=== PATIENT | male | born 1955 | race Caucasian/White ===

== ENCOUNTER 2016-08-17 09:12 | Outpatient (CLI) | payer OTHER | END 2016-08-17 09:13 | disposition home or self-care (01) | DX: I63.511 Cerebral infarction due to unspecified occlusion or stenosis of right middle cerebral artery (principal); I50.22 Chronic systolic (congestive) heart failure; G93.89 Other specified disorders of brain ==

== ENCOUNTER 2017-02-02 14:52 | Outpatient (CLI) | payer OTHER ==
--- NOTE | 2017-02-02 21:18 | Ultrasound Report ---
EXAM: RENAL ULTRASOUND EXAM DATE: 02/02/2017 03:35 PM. CLINICAL HISTORY: STAGE 3 KIDNEY DISEASE, OBSTRUCTIVE NEPHROPATHY. COMPARISON: CT abdomen and pelvis 04/13/2016. TECHNIQUE: Real-time scanning was performed with static images obtained. FINDINGS: Right Kidney: 9.4 x 5.2 x 5.3 cm. Midpole renal cyst measures 1.4 cm, and no definite complex charac teristics seen. Midpole right renal calculus measuring 10 x 5 x 10 mm. No hydronephrosis. Left Kidney: 12 x 5 x 4.7 cm. No hydronephrosis. There appears to be mild bilateral renal cortical thinning. Left kidney measures larger than the righ t. There is lobular contour to both kidneys. Renal parenchymal echotexture appears mildly increased, can be seen with medical renal disease. There appears to be fatty liver. Bladder: Right bladder jet is seen. The left bladder jet is not seen. The prevoid bladder volume was 14 cc. The postvoid bladder volume was 2.8 cc. IMPRESSION: 1. There appears to be mild bilateral renal cortical thinning. Left kidney measures larger than the r ight. There is lobular contour to both kidneys. Renal parenchymal echotexture appears mildly increase d, can be seen with medical renal disease. 2. Right mid renal cyst measuring 1.4 cm. 3. Right mid renal calculus measuring 1 cm. 4. No hydronephrosis. [facility] Referring Provider Line: [phone] SITE ID: [id number]
== END 2017-02-02 14:53 | disposition home or self-care (01) ==
LOC: DI 14:52
PROVIDERS: ATTEND Internal Medicine Nephrology
DX: N28.1 Cyst of kidney, acquired (principal); N20.0 Calculus of kidney
CPT/HCPCS: 76770

== ENCOUNTER 2017-12-23 11:39 | Outpatient (CLI) | payer OTHER ==
[2017-12-23 12:05] LABS: CALCIUM 9.3 mg/dL (8.5-10.3); CREATININE 1.1 mg/dL (0.6-1.2)
[2017-12-23 12:22] LABS: HB2 TOTAL 16.7 g/dL; HEMOGLOBIN A1C 1.15 g/dL; HEMOGLOBIN A1C % 8.5 % (4.6-6.2)
[2017-12-24 15:22] LABS: HEPATITIS C ANTIBODY NON-REACTIVE (NON-REACTIVE)
== END 2017-12-23 11:40 | disposition home or self-care (01) ==
LOC: LAB 11:39
PROVIDERS: ATTEND Internal Medicine
DX: E11.9 Type 2 diabetes mellitus without complications (principal); Z79.899 Other long term (current) drug therapy
CPT/HCPCS: 36415; 80048; 83036; 86803

== ENCOUNTER 2018-02-26 02:38 | Outpatient (CLI) | payer OTHER | END 2018-02-26 02:39 | disposition critical access hospital (66) | LOC: EMS 02:38 | PROVIDERS: ATTEND Surgery | DX: R07.81 Pleurodynia (principal); R03.0 Elevated blood-pressure reading, without diagnosis of hypertension; W19.XXXA Unspecified fall, initial encounter; Y92.009 Unspecified place in unspecified non-institutional (private) residence as the place of occurrence of the external cause; Z79.01 Long term (current) use of anticoagulants | CPT/HCPCS: A0425; A0427 ==

== ENCOUNTER 2018-02-26 02:57 | Inpatient (IN) | payer OTHER ==
[2018-02-26] MEDS ORDERED: IOPAMIDOL-300 100 ML VIAL ONE (03:17)
[2018-02-26 03:19] LABS: BASOPHILS # (AUTO) 0.2 10^3/uL (0.0-0.1); BASOPHILS % (AUTO) 2.9 %; EOSINOPHILS # (AUTO) 0.2 10^3/uL (0.0-0.7); HGB - HEMOGLOBIN 13.9 g/dL (14.0-18.0); LYMPHOCYTES # (AUTO) 2.8 10^3/uL (1.5-3.5); LYMPHOCYTES % (AUTO) 39.5 %; MEAN CORPUSCULAR VOLUME 97.2 fL (80.0-94.0); MEAN PLATELET VOLUME 8.9 fL (7.4-11.4); MONOCYTES # (AUTO) 0.8 10^3/uL (0.0-1.0); MONOCYTES % (AUTO) 11.1 %; NEUTROPHILS % (AUTO) 43.5 %; PLT - PLATELET COUNT 221 10^3/uL (130-450); RED BLOOD COUNT 4.22 10^6/uL (4.70-6.10); RED CELL DISTRIBUTION WIDTH 14.2 % (12.0-15.0)
[2018-02-26] MEDS ORDERED: fentaNYL 100 MCG/2 ML VIAL IVP STA (03:24)
[2018-02-26 03:25] LABS: PT - PROTHROMBIN TIME 22.5 secs (9.9-12.6)
[2018-02-26] MEDS ORDERED: SODIUM CHLORIDE 0.9% 1,000 ML IV ONE (03:27)
[2018-02-26 03:28] LABS: MUDS CUTOFF CONCENTRATIONS CUTOFF CONC BELOW:
[2018-02-26 03:29] LABS: ALBUMIN 3.7 g/dL (3.2-5.5); ALBUMIN/GLOBULIN RATIO 1.2 (1.0-2.2); ALKALINE PHOSPHATASE 45 IU/L (42-121); ALT ALANINE AMINOTRANSFERASE 22 IU/L (10-60); AST ASPARTATE AMINOTRANSFERASE 21 IU/L (10-42); BILIRUBIN,TOTAL 0.7 mg/dL (0.2-1.0); BUN - BLOOD UREA NITROGEN 28 mg/dL (6-20); CALCIUM 8.7 mg/dL (8.5-10.3); CARBON DIOXIDE - CO2 24 mmol/L (21-32); CHLORIDE 101 mmol/L (101-111); CK- CREATINE KINASE 53 IU/L (22-269); CREATININE 2.4 mg/dL (0.6-1.2); GFR - MDRD 28 (>89); GLUCOSE 84 mg/dL (70-100); LIPASE 91 U/L (22-51); SALICYLATE < 6.0 mg/dL; SODIUM 135 mmol/L (135-145); TOTAL PROTEIN 6.8 g/dL (6.7-8.2)
--- NOTE | 2018-02-26 03:36 | ED Physician Documentation ---
History of Present Illness - Stated complaint Stated Complaint: GLF - Chief complaint Chief Complaint: Trauma Ch/Bk - History obtained from History obtained from: Patient, Family, EMS - Additonal information Additional information: 63-year-old male was brought to the emergency department after a fall for evaluation of striking his head and chest and abdomen. The patient became lightheaded while walking and dizzy and subsequently fell striking his head, chest and abdomen. The patient was found by EMS to have a low blood pressure. The patient denies extremity trauma. The patient denies chest pain or shortness of breath. Symptoms are described as severe. The patient is on Coumadin. No other associated symptoms. No relieving factors.The patient's significant other reports that he has been weaker in the past several days and not drinking any water or having much oral intake. Review of Systems Constitutional: reports: Myalgias, Fatigue Eyes: denies: Discharge Ears: denies: Ear pain Nose: denies: Congestion Throat: denies: Sore throat Cardiac: reports: Chest pain / pressure GI: reports: Abdominal Pain Skin: denies: Rash, Laceration (s) Musculoskeletal: reports: Neck pain. denies: Extremity pain, Joint pain, Extremity swelling Neurologic: reports: Generalized weakness, Near syncope, Confused. denies: Focal weakness, Syncope Immunocompromised: denies: Chemotherapy PD PAST MEDICAL HISTORY - Past Medical History Past Medical History: Yes Cardiovascular: Hypertension, High cholesterol Neuro: CVA Endocrine/Autoimmune: Type 2 diabetes GI: GERD Musculoskeletal: Other - Past Surgical History Past Surgical History: Yes Cardiovascular: AICD Neuro: Other - Present Medications Home Medications: Ambulatory Orders Medication Instructions Recorded Confirmed Baclofen 10 mg PO TID 11/06/14 11/06/14 Carvedilol 25 mg PO DAILY 11/06/14 11/06/14 Insulin Aspart [Novolog] SQ TID 11/06/14 11/06/14 Insulin Glargine [Lantus] 55 units SQ BID 11/06/14 11/06/14 Losartan [Cozaar] 12.5 mg PO DAILY 11/06/14 11/06/14 Aspirin [Children's Aspirin] 1 tab PO DAILY 02/26/18 02/26/18 Gabapentin 1 cap PO TID 02/26/18 02/26/18 Metoclopramide HCl 1 tab PO QID 02/26/18 02/26/18 Morphine Sulfate [Morphine Sulfate 1 tab PO BID 02/26/18 02/26/18 ER] Spironolactone 1 tab PO DAILY 02/26/18 02/26/18 Torsemide 1 tab PO DAILY 02/26/18 02/26/18 Warfarin Sodium 0.25 mg PO 02/26/18 Warfarin Sodium 0.5 mg PO 02/26/18 - Allergies Allergies/Adverse Reactions: Allergies Allergy/AdvReac Type Severity Reaction Status Date / Time codeine Allergy Unknown Verified 02/26/18 03:29 lisinopril Allergy Unknown Verified 02/26/18 03:29 niacin Allergy Rash Verified 02/26/18 03:29 Penicillins Allergy Respiratory Verified 02/26/18 03:29 - Social History Does the pt smoke?: Yes Smoking Status: Current every day smoker Does the pt drink ETOH?: No Does the pt have substance abuse?: No - Immunizations Immunizations are current?: Yes - POLST Patient has POLST: No PD ED PE NORMAL - General General: Other (The patient is alert and following commands. The patient appears chronically ill and uncomfortable) - HEENT HEENT: Atraumatic, PERRL, EOMI, Ears normal - Neck Neck: No: No bony TTP - Cardiac Cardiac: RRR, Other (The patient has tenderness along his left lower chest wall into his left upper abdomen, there is no laceration, no crepitus or subcutaneous emphysema) - Respiratory Respiratory: No respiratory distress - Abdomen Abdomen: Soft. No: Non tender (Left upper abdomen pain) - Derm Derm: Normal color - Extremities Extremities: No deformity, No tenderness to palpate, Other (The patient has no tenderness of the major joints and appears to have no obvious deformities and no tenderness on a skeletal survey) - Neuro Neuro: Alert and oriented X 3, Normal speech Eye Opening: Spontaneous Motor: Obeys Commands Verbal: Oriented GCS Score: 15 - Psych Psych: Normal affect Results - Vitals Vitals: Vital Signs - 24 hr 02/26/18 02/26/18 02/26/18 02:57 03:10 03:23 Temperature 36.3 C L Heart Rate 62 63 66 Respiratory 14 15 Rate Blood Pressure 84/80 L 75/53 L 87/49 L O2 Saturation 99 99 99 02/26/18 02/26/18 02/26/18 03:40 03:55 04:05 Temperature Heart Rate 72 66 60 Respiratory 14 16 14 Rate Blood Pressure 91/57 L 98/64 94/59 L O2 Saturation 97 98 97 02/26/18 02/26/18 02/26/18 04:28 05:05 05:47 Temperature 36.5 C Heart Rate 60 60 64 Respiratory 15 20 14 Rate Blood Pressure 104/62 110/65 109/65 O2 Saturation 100 99 96 Oxygen O2 Source Room air - Labs Labs: Laboratory Tests 02/26/18 02/26/18 02/26/18 03:00 03:00 03:00 WBC 7.0 RBC 4.22 L Hgb 13.9 L Hct 41.1 L MCV 97.2 H MCH 33.0 H MCHC 34.0 RDW 14.2 Plt Count 221 MPV 8.9 Neut # (Auto) 3.0 Lymph # (Auto) 2.8 [place] # (Auto) 0.8 Eos # (Auto) 0.2 Baso # (Auto) 0.2 H Absolute Nucleated RBC 0.01 Nucleated RBC % 0.1 PT 22.5 H INR 2.0 H APTT 28.9 Sodium 135 Potassium 3.1 L Chloride 101 Carbon Dioxide 24 Anion Gap 10.0 BUN 28 H Creatinine 2.4 H Estimated GFR (MDRD) 28 L Glucose 84 Calcium 8.7 Total Bilirubin 0.7 AST 21 ALT 22 Alkaline Phosphatase 45 Ammonia Total Creatine Kinase 53 Troponin I Total Protein 6.8 Albumin 3.7 Globulin 3.1 Albumin/Globulin Ratio 1.2 Lipase 91 H Urine Color Urine Clarity Urine pH Ur Specific [place] Urine Protein Urine Glucose (UA) Urine Ketones Urine Occult Blood Urine Nitrite Urine Bilirubin Urine Urobilinogen Ur Leukocyte Esterase Urine RBC Urine WBC Ur Squamous Epith Cells Urine Bacteria Ur Microscopic Review Urine Culture Comments Salicylates < 6.0 Urine Opiates Screen Ur Oxycodone Screen Urine Methadone Screen Ur Propoxyphene Screen Acetaminophen < 10 L Ur Barbiturates Screen Ur Tricyclics Screen Ur Phencyclidine Scrn Ur Amphetamine Screen U Methamphetamines Scrn U Benzodiazepines Scrn Urine Cocaine Screen U Cannabinoids Screen Ethyl Alcohol < 5.0 02/26/18 02/26/18 02/26/18 03:00 03:20 03:20 WBC RBC Hgb Hct MCV MCH MCHC RDW Plt Count MPV Neut # (Auto) Lymph # (Auto) [place] # (Auto) Eos # (Auto) Baso # (Auto) Absolute Nucleated RBC Nucleated RBC % PT INR APTT Sodium Potassium Chloride Carbon Dioxide Anion Gap BUN Creatinine Estimated GFR (MDRD) Glucose Calcium Total Bilirubin AST ALT Alkaline Phosphatase Ammonia 25.0 Total Creatine Kinase Troponin I 0.05 Total Protein Albumin Globulin Albumin/Globulin Ratio Lipase Urine Color Urine Clarity Urine pH Ur Specific [place] Urine Protein Urine Glucose (UA) Urine Ketones Urine Occult Blood Urine Nitrite Urine Bilirubin Urine Urobilinogen Ur Leukocyte Esterase Urine RBC Urine WBC Ur Squamous Epith Cells Urine Bacteria Ur Microscopic Review Urine Culture Comments Salicylates Urine Opiates Screen POSITIVE H Ur Oxycodone Screen NEGATIVE Urine Methadone Screen NEGATIVE Ur Propoxyphene Screen NEGATIVE Acetaminophen Ur Barbiturates Screen NEGATIVE Ur Tricyclics Screen NEGATIVE Ur Phencyclidine Scrn NEGATIVE Ur Amphetamine Screen NEGATIVE U Methamphetamines Scrn NEGATIVE U Benzodiazepines Scrn NEGATIVE Urine Cocaine Screen NEGATIVE U Cannabinoids Screen NEGATIVE Ethyl Alcohol 02/26/18 03:20 WBC RBC Hgb Hct MCV MCH MCHC RDW Plt Count MPV Neut # (Auto) Lymph # (Auto) [place] # (Auto) Eos # (Auto) Baso # (Auto) Absolute Nucleated RBC Nucleated RBC % PT INR APTT Sodium Potassium Chloride Carbon Dioxide Anion Gap BUN Creatinine Estimated GFR (MDRD) Glucose Calcium Total Bilirubin AST ALT Alkaline Phosphatase Ammonia Total Creatine Kinase Troponin I Total Protein Albumin Globulin Albumin/Globulin Ratio Lipase Urine Color DARK YELLOW Urine Clarity HAZY Urine pH 5.0 Ur Specific [place] >=1.030 H Urine Protein 30 H Urine Glucose (UA) 100 H Urine Ketones TRACE Urine Occult Blood LARGE H Urine Nitrite NEGATIVE Urine Bilirubin NEGATIVE Urine Urobilinogen 0.2 (NORMAL) Ur Leukocyte Esterase NEGATIVE Urine RBC TNTC H Urine WBC 0-3 Ur Squamous Epith Cells RARE Squamous Urine Bacteria Rare Ur Microscopic Review INDICATED Urine Culture Comments NOT INDICATED Salicylates Urine Opiates Screen Ur Oxycodone Screen Urine Methadone Screen Ur Propoxyphene Screen Acetaminophen Ur Barbiturates Screen Ur Tricyclics Screen Ur Phencyclidine Scrn Ur Amphetamine Screen U Methamphetamines Scrn U Benzodiazepines Scrn Urine Cocaine Screen U Cannabinoids Screen Ethyl Alcohol PD MEDICAL DECISION MAKING - ED course ED course: The patient has not sustained any significant injury that would necessitate transfer to a trauma center. The findings were discussed with the on-call surgeon who agrees. The patient will require admission to the hospital for pain control and management of his acute medical findings. The case was discussed with the hospitalist Dr. Nova who accepts the patient onto her service. The findings and plan were discussed with the patient and family who understand and agree - Sepsis Event Vital Signs: Vital Signs - 24 hr 02/26/18 02/26/18 02/26/18 02:57 03:10 03:23 Temperature 36.3 C L Heart Rate 62 63 66 Respiratory 14 15 Rate Blood Pressure 84/80 L 75/53 L 87/49 L O2 Saturation 99 99 99 02/26/18 02/26/18 02/26/18 03:40 03:55 04:05 Temperature Heart Rate 72 66 60 Respiratory 14 16 14 Rate Blood Pressure 91/57 L 98/64 94/59 L O2 Saturation 97 98 97 02/26/18 02/26/18 02/26/18 04:28 05:05 05:47 Temperature 36.5 C Heart Rate 60 60 64 Respiratory 15 20 14 Rate Blood Pressure 104/62 110/65 109/65 O2 Saturation 100 99 96 Oxygen O2 Source Room air Departure - Departure Disposition: ED Place in Observation Clinical Impression: Dizziness, Acute renal injury, Dehydration Closed head injury Qualifiers: Encounter type: initial encounter Qualified Code(s): S09.90XA - Unspecified injury of head, initial encounter Chest wall contusion Qualifiers: Encounter type: initial encounter Laterality: unspecified laterality Qualified Code(s): S20.219A - Contusion of unspecified front wall of thorax, initial encounter Abdominal wall contusion Qualifiers: Encounter type: initial encounter Qualified Code(s): S30.1XXA - Contusion of abdominal wall, initial encounter Hematuria Qualifiers: Hematuria type: unspecified type Qualified Code(s): R31.9 - Hematuria, unspecified Hypotension Qualifiers: Hypotension type: unspecified hypotension type Qualified Code(s): I95.9 - Hypotension, unspecified
[2018-02-26 03:37] LABS: ACETAMINOPHEN < 10 ug/mL (10-30)
[2018-02-26 03:42] LABS: AMPHETAMINE SCREEN,URINE NEGATIVE (NEGATIVE); BENZODIAZEPINES SCREEN, URINE NEGATIVE (NEGATIVE); COCAINE SCREEN URINE NEGATIVE (NEGATIVE); METHADONE SCREEN, URINE NEGATIVE (NEGATIVE); METHAMPHETAMINES SCREEN, URINE NEGATIVE (NEGATIVE); OPIATE SCREEN, URINE POSITIVE (NEGATIVE); OXYCODONE SCREEN, URINE NEGATIVE (NEGATIVE); PROPOXYPHENE SCREEN, URINE NEGATIVE (NEGATIVE); TRICYCLIC ANTIDEPRESSANT,URINE NEGATIVE (NEGATIVE)
[2018-02-26] MEDS ORDERED: LACTATED RINGERS 1,000 ML IV ONE (03:43)
--- NOTE | 2018-02-26 04:29 | CT Report ---
Procedure Date: 02/26/2018 Accession Number: [id number] / [id number] Procedure: CT - Chest W/O CPT Code: FULL RESULT: EXAM: CT CHEST EXAM DATE: 02/26/2018 04:07 AM. CLINICAL HISTORY: Fall, left chest wall pain. COMPARISONS: None. TECHNIQUE: Routine helical CT imaging was performed through the chest. IV contrast: None. Reconstructions: Coronal and sagittal. In accordance with CT protocol optimization, one or more of the following dose reduction techniques were utilized for this exam: automated exposure control, adjustment of mA and/or KV based on patient size, or use of iterative reconstructive technique. FINDINGS: Lungs/Pleura: No nodules, bronchial thickening, consolidation, or edema. Pulmonary vasculature is normal. No pericardial or pleural effusion. No pneumothorax. Mediastinum: Pacemaker. No adenopathy or masses. The heart and great vessels are normal. Bones: Degenerative changes. Visualized Abdomen: Please see separate CT. Other: None. IMPRESSION: No evidence of fracture. No pneumothorax or pulmonary contusion. [facility]
--- NOTE | 2018-02-26 04:32 | CT Report ---
Procedure Date: 02/26/2018 Accession Number: [id number] / [id number] Procedure: CT - Abdomen/Pelvis W/O CPT Code: FULL RESULT: EXAM: CT ABDOMEN AND PELVIS EXAM DATE: 02/26/2018 04:12 AM. CLINICAL HISTORY: Chest/abdominal wall trauma. COMPARISONS: 04/13/2016. TECHNIQUE: Routine helical CT imaging was performed through the abdomen and pelvis. IV contrast: None. Enteric contrast: No. Reconstructions: Coronal and sagittal. In accordance with CT protocol optimization, one or more of the following dose reduction techniques were utilized for this exam: automated exposure control, adjustment of mA and/or KV based on patient size, or use of iterative reconstructive technique. FINDINGS: Lung Bases: Unremarkable. Liver: Normal. No masses. Gallbladder/Bile Ducts: Unremarkable. Spleen: Normal. Pancreas: Normal. Adrenal Glands: Normal. Kidneys: Nonobstructing calculi, measuring up to 8 mm. No hydronephrosis or solid renal lesion. Peritoneal Cavity/Bowel: Normal. No free fluid, free air or adenopathy. No masses or acute inflammatory process. The appendix is well visualized and normal. Pelvic Organs: Normal. The bladder and visualized pelvic organs are within normal limits. Vasculature: No aneurysms or other significant abnormality. Bones: No significant abnormality. Other: Contusion in the subcutaneous fat of the anterior abdominal wall. IMPRESSION: No evidence of solid or hollow organ injury. Nonobstructing renal calculi. [facility]
[2018-02-26 04:33] LABS: GLUCOSE, URINE (UA) 100 mg/dL (NEGATIVE); KETONES,URINE (UA) TRACE mg/dL (NEGATIVE); LEUKOCYTE ESTERASE, URINE NEGATIVE (NEGATIVE); NITRITE,URINE NEGATIVE (NEGATIVE); OCCULT BLOOD,URINE LARGE (NEGATIVE); PROTEIN,URINE 30 mg/dL (NEGATIVE); UROBILINOGEN,URINE 0.2 (NORMAL) E.U./dL (NORMAL)
[2018-02-26 04:38] LABS: BILIRUBIN,URINE NEGATIVE (NEGATIVE); CLARITY,URINE HAZY (CLEAR); ICTOTEST,URINE NEGATIVE
--- NOTE | 2018-02-26 04:40 | CT Report ---
Procedure Date: 02/26/2018 Accession Number: [id number] / [id number] Procedure: CT - Head W/O CPT Code: FULL RESULT: EXAM: CT HEAD EXAM DATE: 02/26/2018 04:10 AM. CLINICAL HISTORY: Fall, head injury. COMPARISON: 08/17/2016. TECHNIQUE: Multiaxial CT images were obtained from the foramen magnum to the vertex. Reformats: Sagittal and coronal. IV contrast: None. In accordance with CT protocol optimization, one or more of the following dose reduction techniques were utilized for this exam: automated exposure control, adjustment of mA and/or KV based on patient size, or use of iterative reconstructive technique. FINDINGS: Parenchyma: Old right MCA territory infarcts bilaterally. Right is larger than the left. The appearance is unchanged. No evidence of hemorrhage or interval infarct. Small region of encephalomalacia is seen involving the posterior left cerebellum at site of retrosigmoid craniectomy. This is also unchanged. Extraaxial Spaces: Normal for age. No subdural or epidural collections identified. Ventricles: Normal in size and position. Sinuses and Orbits: Imaged paranasal sinuses, orbits, and mastoids show no significant abnormality. Bones: No fracture. Left retrosigmoid craniectomy. Other: None. IMPRESSION: 1. Old bilateral MCA territory infarcts, unchanged. 2. Postoperative findings within the posterior fossa on the left as before. 3. No acute intracranial process identified. [facility]
[2018-02-26 04:41] LABS: BACTERIA,URINE Rare /HPF (None Seen); RBC,URINE TNTC /HPF (0-5); SQUAMOUS EPITHELIAL CELL,UR RARE Squamous (<= Few)
--- NOTE | 2018-02-26 04:49 | CT Report ---
Procedure Date: 02/26/2018 Accession Number: [id number] / [id number] Procedure: CT - Cervical Spine W/O CPT Code: FULL RESULT: EXAM: CT CERVICAL SPINE WITHOUT CONTRAST DATE: 02/26/2018 04:05 AM. HISTORY: Fall, injury. COMPARISONS: None. TECHNIQUE: Thin-section axial images were acquired of the cervical spine without contrast. Post-processing: Coronal and sagittal reformats. Other: None. In accordance with CT protocol optimization, one or more of the following dose reduction techniques were utilized for this exam: automated exposure control, adjustment of mA and/or KV based on patient size, or use of iterative reconstructive technique. FINDINGS: Alignment: No scoliosis or spondylolisthesis. Bones: No fracture or bone lesion. Undulating ossification of the anterior longitudinal ligament from C3-C6. This measures 9-10 mm in thickness at C4, similar. There is more extensive ossification seen anterior to C4-C5, bony bridging now present anteriorly at C5-C6. Interspace Levels/Facets: Stable appearing degenerative changes elsewhere in the cervical spine. Central canal narrowing is present to some extent at C3-C4 through C5-C6, inclusive. Findings are superimposed on an element of congenital narrowing of the central canal. AP diameter at mid C3 of roughly 10 mm, Torg index 0.57 Musculature: Normal. No fatty atrophy. Other: The paravertebral and prevertebral soft tissues are unremarkable. The lung apices are clear. IMPRESSION: 1. 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 2. No fracture identified. 3. Stable degenerative changes elsewhere in the cervical spine since 11/06/2014. 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 [facility]
[2018-02-26 06:25] LABS: HGB - HEMOGLOBIN 13.2 g/dL (14.0-18.0); MEAN CORPUSCULAR HEMOGLOBIN 33.1 pg (27.0-31.0); MEAN CORPUSCULAR HGB CONC 34.1 g/dL (32.0-36.0); MEAN CORPUSCULAR VOLUME 97.1 fL (80.0-94.0); MEAN PLATELET VOLUME 8.5 fL (7.4-11.4); RED BLOOD COUNT 3.98 10^6/uL (4.70-6.10); RED CELL DISTRIBUTION WIDTH 13.8 % (12.0-15.0); WHITE BLOOD COUNT 6.2 x10^3/uL (4.8-10.8)
--- NOTE | 2018-02-26 06:28 | HISTORY & PHYSICAL EXAMINATION ---
Chief Complaint - Chief Complaint Chief Complaint: dizziness, syncope History of Present Illness - Admitted From Admitted From:: Home - History Obtained From History obtained from: Pt, ED Physician Exam Limitations: none noted - History of Present Illness HPI Comment/Other: Mr. Louie Blandon is a very pleasant 63-year-old male with an extensive past medical history significant for 3 myocardial infarctions, several pacer/ defibrillator surgeries, and 2 strokes, the most recent coming in 2016. The patient says that he got up this evening to use the bathroom and felt dizzy and woke up on the floor. He does not recall falling to the floor, striking his head, or any of the immediate events surrounding his fall. EMS was called and found the patient to be hypotensive, and in the ED he was found to be somewhat dehydrated with an acute kidney injury and a creatinine of 2.4 (he typically runs around 1.0). He was given IV fluids and his blood pressure started to rise in the emergency department however given his history it seems prudent to admit him and rule out another stroke or seizure, while monitoring his renal function and EKG. History - Past Medical History Cardiovascular: reports: Hypertension, High cholesterol, Coronary artery disease , OR Neuro: reports: CVA Endocrine/Autoimmune: reports: Type 2 diabetes GI: reports: GERD Musculoskeletal: reports: Other MRSA Hx?: No - Past Surgical History Ortho: reports: Other (bilateral wrist fusions) Cardiovascular: reports: AICD Neuro: reports: Other - Family & Social History Family History: Mother: Alive and Well, Father: , OR Family History Comment/Other: The patient says his family does not really talk about their medical problems and that the only person he is aware of with any medical history as his father who of a heart attack. Living arrangement: At home Living Situation: With family - Substance History Use: Uses substance without health or social issues: NONE Abuse: Recurrent use of substance despite neg consequences: NONE Dependence: Experiences withdrawal or developed tolerances: NONE - POLST Patient has POLST: No POLST Status: Full Code Meds/Allgy - Home Medications Home Medications: Ambulatory Orders Medication Instructions Recorded Confirmed Baclofen 10 mg PO TID 11/06/14 02/26/18 Carvedilol 12.5 mg PO BID 11/06/14 02/26/18 Insulin Aspart [Novolog] 0 - 25 units SQ TIDWM 11/06/14 02/26/18 Insulin Glargine [Lantus] 55 units SQ BID 11/06/14 02/26/18 Losartan [Cozaar] 12.5 mg PO DAILY 11/06/14 02/26/18 Aspirin [Children's Aspirin] 81 mg PO DAILY 02/26/18 02/26/18 Gabapentin 100 mg PO TID 02/26/18 02/26/18 Metoclopramide HCl 5 mg PO QID 02/26/18 02/26/18 Morphine Sulfate [Morphine Sulfate 15 mg PO BID 02/26/18 02/26/18 ER] Spironolactone 25 mg PO DAILY 02/26/18 02/26/18 Torsemide 10 mg PO DAILY 02/26/18 02/26/18 Warfarin Sodium 2.5 mg PO [id number]/26/[id number] 02/27/18 Warfarin Sodium 5 mg PO [id number]/26/[id number] 02/27/18 raNITIdine HCl [Ranitidine HCl] 150 mg PO DAILY 02/26/18 02/26/18 - Allergies Allergies/Adverse Reactions: Allergies Allergy/AdvReac Type Severity Reaction Status Date / Time codeine Allergy Unknown Verified 02/26/18 03:29 lisinopril Allergy Unknown Verified 02/26/18 03:29 niacin Allergy Rash Verified 02/26/18 03:29 Penicillins Allergy Respiratory Verified 02/26/18 03:29 Review of Systems - Constitutional Constitutional: denies: Fatigue, Fever, Chills, Night sweats - Eyes Eyes: denies: Pain, Irritation, Amaurosis, Dipolpia - Ears, Nose & Throat Ears, Nose & Throat: denies: Ear pain, Hearing loss, Hearing aids, Tinnitus, Vertigo, Nasal pain, Nasal discharge, Nosebleeds, Hoarseness - Cardiovascular Cariovascular: reports: Lightheadedness, Syncope. denies: Irregular heart rate , Palpitations, Chest pain, Edema - Respiratory Respiratory: denies: Cough, Sputum production, Wheezing, Snoring, Hemoptysis, Orthopnea - Gastrointestinal Gastrointestinal: denies: Abdominal pain, Abdominal distention, Constipation, Diarrhea, Change in bowel habits, Rectal bleeding, Nausea, Vomiting - Genitourinary Genitourinary: denies: Dysuria, Frequency, Urgency, Hematuria - Musculoskeletal Musculoskeletal: reports: Muscle pain (chest wall pain secondary to contusion), Muscle aches. denies: Back pain, Stiffness, Muscle weakness, Gout, Joint pain - Integumentary Integumentary: denies: Rash, Pruritis, Lesions, Dryness - Neurological Neurological: reports: Dizziness. denies: General weakness, Focal weakness, Headache - Psychiatric Psychiatric: denies: Depression, Anxiety, Suicidal, Hallucinations - Endocrine Endocrine: denies: Polyuria, Polydypsia, Polyphagia - Hematologic/Lymphatic Hematologic/Lymphatic: denies: Anemia, Bruising, Petechiae, Lymphadenopathy - All Other Systems All Other Systems: reports: Reviewed and negative Exam - Vital Signs Reviewed Vital Signs: Yes Vital Signs: Vital Signs x48h Temp Pulse Resp BP Pulse Ox 02/26/18 05:47 64 14 109/65 96 02/26/18 05:05 36.5 C 60 20 110/65 99 02/26/18 04:28 60 15 104/62 100 02/26/18 04:05 60 14 94/59 L 97 02/26/18 03:55 66 16 98/64 98 02/26/18 03:40 72 14 91/57 L 97 02/26/18 03:23 66 15 87/49 L 99 02/26/18 03:10 63 14 75/53 L 99 02/26/18 02:57 36.3 C L 62 84/80 L 99 - Physical Exam General Appearance: positive: No acute distress, Alert Eyes Bilateral: positive: Normal inspection, PERRL, EOMI, No lid inflammation, Conjunctivae nml, No scleral icterus ENT: positive: ENT inspection nml, Pharynx nml, No signs of dehydration Neck: positive: Nml inspection, Thyroid nml, No JVD, Trachea midline. negative : Thyromegaly Respiratory: positive: No respiratory distress, Breath sounds nml, Other (chest wall). negative: Wheezes, Rales, Rhonchi Cardiovascular: positive: Regular rate & rhythm, No murmur, No gallop Peripheral Pulses: positive: 1+ Abdomen: positive: Non-tender, No organomegaly, Nml bowel sounds, No distention. negative: Guarding, Rebound Back: positive: Nml inspection. negative: CVA tenderness (R), CVA tenderness (L ) Skin: positive: Color nml, No rash, Warm, Dry. negative: Cyanosis Extremities: positive: Non-tender, Full ROM, Nml appearance, No pedal edema Neurologic/Psychiatric: positive: Oriented x3, CN's nml (2-12), Sensation nml, Mood/affect nml, Weakness (Patient has residual left hand weakness), Slurred/ abnml speech Conclusion/Plan - Problem List (1) Dizziness Conclusion/Plan: It is unclear if the patient has had a full syncopal event. The patient says he does not remember falling or hitting his head. The differential for this would include a syncopal event as well as a seizure, especially given the patient's history of 2 prior CVAs, as well as a TIA or another stroke. I will order a carotid ultrasound and an echocardiogram. The patient has had a defibrillator/pacemaker placed and fusions of his wrists and is not eligible for an MRI of his brain. The [facility] radiologist, Dr. Chapman, does not feel that a CTA would be of any use at this time. I suggest the patient follow-up with a neurologist following discharge. (2) Chest wall contusion Conclusion/Plan: The patient fell, landing on his chest, which is tender. A CTA of the chest failed to show any bony abnormalities or fractures. We will treat him with NSAIDs. Qualifiers: Encounter type: initial encounter Laterality: unspecified laterality Qualified Code(s): S20.219A - Contusion of unspecified front wall of thorax, initial encounter (3) Cerebrovascular accident (CVA) Conclusion/Plan: The patient has a history of a stroke in 2011 and another in 2016. We will check his carotid ultrasound and echocardiogram however a CTA has been overruled by the [facility] radiologist. Patient is not a candidate for an MRI. Qualifiers: CVA mechanism: unspecified Qualified Code(s): I63.9 - Cerebral infarction, unspecified (4) Coronary artery disease Conclusion/Plan: Patient has a history of coronary artery disease and has had 3 myocardial infarctions. We will continue him on his warfarin, Carvedilol, spironolactone and torsemide. There is some question as to whether or not the patient has congestive heart failure given his home medication regimen and we will know more after the echocardiogram. (5) Type 2 diabetes mellitus Conclusion/Plan: Patient has a history of type 2 diabetes mellitus and takes insulin at home. We will restart him on his basal glargine dosing and cover him with sliding scale. Will obtain a hemoglobin A1c to check his glycemic compliance. (6) Hypertension Conclusion/Plan: The patient has a history of hypertension and takes losartan but has been hypotensive since he came to the emergency department. We will hold the losartan for now. (7) Diabetic gastroparesis Conclusion/Plan: Patient has a history of diabetic gastroparesis and takes metoclopramide at home. We will continue this while he is inpatient. (8) Dehydration Conclusion/Plan: Patient is being rehydrated at this time. Will monitor his fluid status and electrolytes. - Lab Results Lab results reviewed: Yes Fish Bones: 02/27/18 05:10 02/27/18 05:10 - Diagnostic Imaging Results Diagnostic Imaging Results: positive: Final report reviewed, Discussed with radiologist (Due to the patient's history of 2 CVAs I had requested a CTA to rule out any large occlusions however I received a call from Dr. Chapman at [facility] who assures me that this is not necessary and would not be of any usefulness in this patient's care/treatment.) Diagnostic Imaging Results Comments: EXAM: CT HEAD EXAM DATE: 02/26/2018 04:10 AM. CLINICAL HISTORY: Fall, head injury. COMPARISON: 08/17/2016. TECHNIQUE: Multiaxial CT images were obtained from the foramen magnum to the vertex. Reformats: Sagittal and coronal. IV contrast: None. In accordance with CT protocol optimization, one or more of the following dose reduction techniques were utilized for this exam: automated exposure control, adjustment of mA and/or KV based on patient size, or use of iterative reconstructive technique. FINDINGS: Parenchyma: Old right MCA territory infarcts bilaterally. Right is larger than the left. The appearance is unchanged. No evidence of hemorrhage or interval infarct. Small region of encephalomalacia is seen involving the posterior left cerebellum at site of retrosigmoid craniectomy. This is also unchanged. Extraaxial Spaces: Normal for age. No subdural or epidural collections identified. Ventricles: Normal in size and position. Sinuses and Orbits: Imaged paranasal sinuses, orbits, and mastoids show no significant abnormality. Bones: No fracture. Left retrosigmoid craniectomy. Other: None. IMPRESSION: 1. Old bilateral MCA territory infarcts, unchanged. 2. Postoperative findings within the posterior fossa on the left as before. 3. No acute intracranial process identified. EXAM: CT CERVICAL SPINE WITHOUT CONTRAST DATE: 02/26/2018 04:05 AM. HISTORY: Fall, injury. COMPARISONS: None. TECHNIQUE: Thin-section axial images were acquired of the cervical spine without contrast. Post-processing: Coronal and sagittal reformats. Other: None. In accordance with CT protocol optimization, one or more of the following dose reduction techniques were utilized for this exam: automated exposure control, adjustment of mA and/or KV based on patient size, or use of iterative reconstructive technique. FINDINGS: Alignment: No scoliosis or spondylolisthesis. Bones: No fracture or bone lesion. Undulating ossification of the anterior longitudinal ligament from C3-C6. This measures 9-10 mm in thickness at C4, similar. There is more extensive ossification seen anterior to C4-C5, bony bridging now present anteriorly at C5-C6. Interspace Levels/Facets: Stable appearing degenerative changes elsewhere in the cervical spine. Central canal narrowing is present to some extent at C3-C4 through C5-C6, inclusive. Findings are superimposed on an element of congenital narrowing of the central canal. AP diameter at mid C3 of roughly 10 mm, Torg index 0.57 Musculature: Normal. No fatty atrophy. Other: The paravertebral and prevertebral soft tissues are unremarkable. The lung apices are clear. IMPRESSION: 1. 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 2. No fracture identified. 3. Stable degenerative changes elsewhere in the cervical spine since 11/06/2014. 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 EXAM: CT ABDOMEN AND PELVIS EXAM DATE: 02/26/2018 04:12 AM. CLINICAL HISTORY: Chest/abdominal wall trauma. COMPARISONS: 04/13/2016. TECHNIQUE: Routine helical CT imaging was performed through the abdomen and pelvis. IV contrast: None. Enteric contrast: No. Reconstructions: Coronal and sagittal. In accordance with CT protocol optimization, one or more of the following dose reduction techniques were utilized for this exam: automated exposure control, adjustment of mA and/or KV based on patient size, or use of iterative reconstructive technique. FINDINGS: Lung Bases: Unremarkable. Liver: Normal. No masses. Gallbladder/Bile Ducts: Unremarkable. Spleen: Normal. Pancreas: Normal. Adrenal Glands: Normal. Kidneys: Nonobstructing calculi, measuring up to 8 mm. No hydronephrosis or solid renal lesion. Peritoneal Cavity/Bowel: Normal. No free fluid, free air or adenopathy. No masses or acute inflammatory process. The appendix is well visualized and normal. Pelvic Organs: Normal. The bladder and visualized pelvic organs are within normal limits. Vasculature: No aneurysms or other significant abnormality. Bones: No significant abnormality. Other: Contusion in the subcutaneous fat of the anterior abdominal wall. IMPRESSION: No evidence of solid or hollow organ injury. Nonobstructing renal calculi. EXAM: CT CHEST EXAM DATE: 02/26/2018 04:07 AM. CLINICAL HISTORY: Fall, left chest wall pain. COMPARISONS: None. TECHNIQUE: Routine helical CT imaging was performed through the chest. IV contrast: None. Reconstructions: Coronal and sagittal. In accordance with CT protocol optimization, one or more of the following dose reduction techniques were utilized for this exam: automated exposure control, adjustment of mA and/or KV based on patient size, or use of iterative reconstructive technique. FINDINGS: Lungs/Pleura: No nodules, bronchial thickening, consolidation, or edema. Pulmonary vasculature is normal. No pericardial or pleural effusion. No pneumothorax. Mediastinum: Pacemaker. No adenopathy or masses. The heart and great vessels are normal. Bones: Degenerative changes. Visualized Abdomen: Please see separate CT. Other: None. IMPRESSION: No evidence of fracture. No pneumothorax or pulmonary contusion. Core Measures - Anticipated LOS I expect patient to be DC'd or transferred within 96 hours.: Yes - DVT/VTE - Prophylaxis VTE/DVT Device ordered at admit?: Yes
[2018-02-26 06:36] LABS: CALCIUM 8.5 mg/dL (8.5-10.3)
[2018-02-26] MEDS: NS W/20 MEQ KCL 1,000 ML IV SCH ×2 (07:31→16:37)
[2018-02-26] MEDS: SODIUM CHLORIDE FLUSH 0.9% 10 ML SYRINGE IVP PRN ×2 (07:31→23:54)
[2018-02-26] MEDS: INSULIN ASPART 300 UNIT/3 ML PEN SUBQ SCH ×4 (07:32→21:03)
[2018-02-26 07:46] LABS: HB2 TOTAL 13.9 g/dL; HEMOGLOBIN A1C 0.84 g/dL; HEMOGLOBIN A1C % 7.7 % (4.6-6.2)
[2018-02-26] MEDS ORDERED: METOCLOPRAMIDE 10 MG TABLET PO PRN (09:00)
[2018-02-26] MEDS ORDERED: TORSEMIDE 20 MG TABLET PO SCH (09:00)
[2018-02-26] MEDS ORDERED: SPIRONOLACTONE 25 MG TABLET PO SCH (09:00)
[2018-02-26] MEDS: ASPIRIN CHEW 81 MG TABLET PO SCH (09:06)
[2018-02-26] MEDS: INSULIN GLARGINE 300 UNIT/3 ML PEN SUBQ SCH ×2 (09:06→21:04)
[2018-02-26] MEDS: POLYETHYLENE GLYCOL 3350 17 GM PACKET PO SCH (09:07)
[2018-02-26] MEDS: SODIUM CHLORIDE FLUSH 0.9% 10 ML SYRINGE IVP SCH ×3 (09:07→23:54)
[2018-02-26] MEDS: BACLOFEN 10 MG TABLET PO SCH ×2 (13:07→21:03)
[2018-02-26] MEDS: GABAPENTIN 100 MG CAPSULE PO SCH ×2 (13:07→21:03)
--- NOTE | 2018-02-26 15:05 | PROVIDER PROGRESS NOTE ---
Assessment/Plan - Problem List (1) Syncope and collapse Assessment/Plan: W/U points to volume depletion as cause of syncope. He had no po intake for the 48 hours before syncope, slept due to a migraine but awoke to take all his meds , including Torsemide and Spironolactone. Continue iv hydration. Stop Torsemide 1-2 days, then will resume at a much lower dose. Stop spironolactone for 11-2 days. Will change Pt to Inpt status, as hydration needed slowly so as not to cause pulmonary edema. (2) Dehydration Assessment/Plan: As in #1. Pt and were told that he can skip diuretics if he needs to sleep 1-2 days for his migraines. (3) ATN (acute tubular necrosis) Assessment/Plan: Continue iv fluids. Monitor daily BMP. Check US for renal artery stenosis, if creat no better tomorrow. (4) Chest wall contusion Qualifiers: Encounter type: initial encounter Laterality: unspecified laterality Qualified Code(s): S20.219A - Contusion of unspecified front wall of thorax, initial encounter Assessment/Plan: Pain meds prn. IS will also be ordered to prevent atelectasis and a pneumonia. (5) Cardiomyopathy, ischemic Assessment/Plan: Continue Coreg and stop Losartan, spironolactone and Torsemide temporarily while low BP and dehydrated. Echo shows an inferior scar, LVEF 45%. (6) V-tach Assessment/Plan: Pt had a 3-beat and a 8-beat run of monomorphic VT. His defib was just interrogated 3 weeks ago and is functioning correctly. The parameters are likely set for defibrillation if he has longer VTach then these short runs seen on our telemetry. Mg is OK. Watch K and Mg levels daily. (7) Type 2 diabetes mellitus Assessment/Plan: The reports that ladies' hat trimmer found a glu of 76 when he had syncope. This is also likely from poor po intake for 48 hours before syncope. Continue fingerstick glu monitoring and ss Insulin coverage. (8) History of CVA (cerebrovascular accident) Assessment/Plan: Pt gets dysarthria when stressed or tired, per . Otherwise, this is his baseline neuro status per . Continue Coumadin and BP meds. - Current Meds Current Meds: Current Medications Generic Name Dose Route Start Last Admin Trade Name Freq PRN Reason Stop Dose Admin Aspirin 81 mg 02/26/18 09:00 02/26/18 09:06 [facility] [place] Aspirin PO 81 mg DAILY MARCELLUS Administration Baclofen 10 mg 02/26/18 14:00 02/26/18 13:07 Lioresal PO 10 mg TID MARCELLUS Administration Gabapentin 100 mg 02/26/18 14:00 02/26/18 13:07 Neurontin PO 100 mg TID MARCELLUS Administration Potassium Chloride/Sodium Chloride 1,000 mls @ 125 mls/hr 02/26/18 07:00 07:31 Normal Saline 0.9% W/20 Meq Kcl IV 125 mls/hr .Q8H MARCELLUS Administration Insulin Aspart 3 - 11 unit 02/26/18 08:00 02/26/18 12:25 Novolog SUBQ Not Given 0800,1200,1700,2100 [facility] Protocol Insulin Glargine 55 unit 02/26/18 09:00 02/26/18 09:06 Lantus Solostar SUBQ 55 unit BID MARCELLUS Administration Polyethylene Glycol 17 gm 02/26/18 09:00 02/26/18 09:07 Miralax PO Not Given DAILY MARCELLUS Sodium Chloride 10 ml 02/26/18 06:06 02/26/18 07:31 Normal Saline Flush 0.9% IVP 10 ml PRN PRN Administration NEEDED PER PROVIDER ORDERS Sodium Chloride 10 ml 02/26/18 09:00 02/26/18 09:07 Normal Saline Flush 0.9% IVP 10 ml 0100,0900,1700 MARCELLUS Administration - Lab Result Fish Bone Diagrams: 02/26/18 06:20 02/26/18 06:20 - Additional Planning My Orders: My Active Orders 02/26/18 10:52 Postural [Vital Signs - Orthostatic] [RC] QSHIFT 02/26/18 14:59 Transfer [Admit \ Transfer \ Status] [RC] .ONCE Subjective - Subjective Patient Reports: Feeling Better, Other ( reports that he has dysarthric speech, since his 2016 stroke, when he is tired.) Objective Vital Signs: Vital Signs - 24 hr 02/26/18 02/26/18 02/26/18 06:25 07:02 12:51 Temperature 36.5 C 36.3 C L Heart Rate 67 Heart Rate [ 65 70 Brachial] Heart Rate [ Sitting (After 1 Minute)] Heart Rate [ Standing (After 1 Minute)] Heart Rate [ Supine] Respiratory 17 17 18 Rate Blood Pressure 109/68 Blood Pressure 103/61 107/56 L [Right Brachial artery] Blood Pressure [Sitting (After 1 Minute)] Blood Pressure [Standing ( After 1 Minute) ] Blood Pressure [Supine] O2 Saturation 96 98 96 02/26/18 12:52 Temperature Heart Rate Heart Rate [ Brachial] Heart Rate [ 72 Sitting (After 1 Minute)] Heart Rate [ 80 Standing (After 1 Minute)] Heart Rate [ 70 Supine] Respiratory Rate Blood Pressure Blood Pressure [Right Brachial artery] Blood Pressure 117/71 [Sitting (After 1 Minute)] Blood Pressure 107/55 L [Standing ( After 1 Minute) ] Blood Pressure 107/56 L [Supine] O2 Saturation Oxygen O2 Source Room air I&O (Last 24 Hrs): Intake and Output Totals x24h 02/24/18 02/25/18 02/26/18 23:59 23:59 23:59 Intake Total 780 Output Total 425 Balance 355 General: Alert, Oriented x3 HEENT: Mucous membr. moist/pink Neck: Supple, No JVD Neuro: Other (Dysarthria) Cardiovascular: Regular rate, No murmurs Respiratory: No respiratory distress, Breath sounds nml Abdomen: Soft, No hepatospenomegaly Extremities: No edema - Results Results: Laboratory Results WBC 6.2 x10^3/uL (4.8-10.8) 02/26/18 06:20 RBC 3.98 10^6/uL (4.70-6.10) L 02/26/18 06:20 Hgb 13.2 g/dL (14.0-18.0) L 02/26/18 06:20 Hct 38.6 % (42.0-52.0) L 02/26/18 06:20 MCV 97.1 fL (80.0-94.0) H 02/26/18 06:20 MCH 33.1 pg (27.0-31.0) H 02/26/18 06:20 MCHC 34.1 g/dL (32.0-36.0) 02/26/18 06:20 RDW 13.8 % (12.0-15.0) 02/26/18 06:20 Plt Count 187 10^3/uL (130-450) 02/26/18 06:20 MPV 8.5 fL (7.4-11.4) 02/26/18 06:20 Neut # (Auto) 3.0 10^3/uL (1.5-6.6) 02/26/18 03:00 Lymph # (Auto) 2.8 10^3/uL (1.5-3.5) 02/26/18 03:00 [place] # (Auto) 0.8 10^3/uL (0.0-1.0) 02/26/18 03:00 Eos # (Auto) 0.2 10^3/uL (0.0-0.7) 02/26/18 03:00 Baso # (Auto) 0.2 10^3/uL (0.0-0.1) H 02/26/18 03:00 Absolute Nucleated RBC 0.01 x10^3/uL 02/26/18 03:00 Nucleated RBC % 0.1 /100WBC 02/26/18 03:00 PT 22.5 secs (9.9-12.6) H 02/26/18 03:00 INR 2.0 (0.8-1.2) H 02/26/18 03:00 APTT 28.9 secs (24.9-33.3) 02/26/18 03:00 Sodium 136 mmol/L (135-145) 02/26/18 06:20 Potassium 3.9 mmol/L (3.5-5.0) 02/26/18 06:20 Chloride 103 mmol/L (101-111) 02/26/18 06:20 Carbon Dioxide 26 mmol/L (21-32) 02/26/18 06:20 Anion Gap 7.0 (6-13) 02/26/18 06:20 BUN 27 mg/dL (6-20) H 02/26/18 06:20 Creatinine 2.0 mg/dL (0.6-1.2) H 02/26/18 06:20 Estimated GFR (MDRD) 34 (>89) L 02/26/18 06:20 Glucose 87 mg/dL (70-100) 02/26/18 06:20 Glycated Hemoglobin 7.7 % (4.6-6.2) H 02/26/18 06:20 Estim Average Glucose 174 (70-100) H 02/26/18 06:20 Calcium 8.5 mg/dL (8.5-10.3) 02/26/18 06:20 Total Bilirubin 0.7 mg/dL (0.2-1.0) 02/26/18 03:00 AST 21 IU/L (10-42) 02/26/18 03:00 ALT 22 IU/L (10-60) 02/26/18 03:00 Alkaline Phosphatase 45 IU/L (42-121) 02/26/18 03:00 Ammonia 25.0 umol/L (7-35) 02/26/18 03:20 Total Creatine Kinase 53 IU/L (22-269) 02/26/18 03:00 Troponin I 0.05 ng/mL (<0.49) 02/26/18 03:00 Total Protein 6.8 g/dL (6.7-8.2) 02/26/18 03:00 Albumin 3.7 g/dL (3.2-5.5) 02/26/18 03:00 Globulin 3.1 g/dL (2.1-4.2) 02/26/18 03:00 Albumin/Globulin Ratio 1.2 (1.0-2.2) 02/26/18 03:00 Lipase 91 U/L (22-51) H 02/26/18 03:00 Urine Color DARK YELLOW 02/26/18 03:20 Urine Clarity HAZY (CLEAR) 02/26/18 03:20 Urine pH 5.0 PH (5.0-7.5) 02/26/18 03:20 Ur Specific [place] >=1.030 (1.002-1.030) H 02/26/18 03:20 Urine Protein 30 mg/dL (NEGATIVE) H 02/26/18 03:20 Urine Glucose (UA) 100 mg/dL (NEGATIVE) H 02/26/18 03:20 Urine Ketones TRACE mg/dL (NEGATIVE) 02/26/18 03:20 Urine Occult Blood LARGE (NEGATIVE) H 02/26/18 03:20 Urine Nitrite NEGATIVE (NEGATIVE) 02/26/18 03:20 Urine Bilirubin NEGATIVE (NEGATIVE) 02/26/18 03:20 Urine Urobilinogen 0.2 (NORMAL) E.U./dL (NORMAL) 02/26/18 03:20 Ur Leukocyte Esterase NEGATIVE (NEGATIVE) 02/26/18 03:20 Urine RBC TNTC /HPF (0-5) H 02/26/18 03:20 Urine WBC 0-3 /HPF (0-3) 02/26/18 03:20 Ur Squamous Epith Cells RARE Squamous (<= Few) 02/26/18 03:20 Urine Bacteria Rare /HPF (None Seen) 02/26/18 03:20 Ur Microscopic Review INDICATED 02/26/18 03:20 Urine Culture Comments NOT INDICATED 02/26/18 03:20 Salicylates < 6.0 mg/dL 02/26/18 03:00 Urine Opiates Screen POSITIVE (NEGATIVE) H 02/26/18 03:20 Ur Oxycodone Screen NEGATIVE (NEGATIVE) 02/26/18 03:20 Urine Methadone Screen NEGATIVE (NEGATIVE) 02/26/18 03:20 Ur Propoxyphene Screen NEGATIVE (NEGATIVE) 02/26/18 03:20 Acetaminophen < 10 ug/mL (10-30) L 02/26/18 03:00 Ur Barbiturates Screen NEGATIVE (NEGATIVE) 02/26/18 03:20 Ur Tricyclics Screen NEGATIVE (NEGATIVE) 02/26/18 03:20 Ur Phencyclidine Scrn NEGATIVE (NEGATIVE) 02/26/18 03:20 Ur Amphetamine Screen NEGATIVE (NEGATIVE) 02/26/18 03:20 U Methamphetamines Scrn NEGATIVE (NEGATIVE) 02/26/18 03:20 U Benzodiazepines Scrn NEGATIVE (NEGATIVE) 02/26/18 03:20 Urine Cocaine Screen NEGATIVE (NEGATIVE) 02/26/18 03:20 U Cannabinoids Screen NEGATIVE (NEGATIVE) 02/26/18 03:20 Ethyl Alcohol < 5.0 mg/dL 02/26/18 03:00
[2018-02-27] MEDS: NS W/20 MEQ KCL 1,000 ML IV SCH (00:44)
[2018-02-27 05:39] LABS: HGB - HEMOGLOBIN 13.2 g/dL (14.0-18.0); MEAN CORPUSCULAR HEMOGLOBIN 33.3 pg (27.0-31.0); MEAN CORPUSCULAR HGB CONC 34.3 g/dL (32.0-36.0); MEAN CORPUSCULAR VOLUME 97.1 fL (80.0-94.0); MEAN PLATELET VOLUME 8.9 fL (7.4-11.4); RED BLOOD COUNT 3.96 10^6/uL (4.70-6.10); RED CELL DISTRIBUTION WIDTH 13.8 % (12.0-15.0)
[2018-02-27 05:46] LABS: CALCIUM 8.7 mg/dL (8.5-10.3)
[2018-02-27] MEDS: BACLOFEN 10 MG TABLET PO SCH (06:25)
[2018-02-27] MEDS: GABAPENTIN 100 MG CAPSULE PO SCH (06:26)
[2018-02-27 07:42] VITALS: BP 132/67
[2018-02-27] MEDS: ASPIRIN CHEW 81 MG TABLET PO SCH (08:38)
[2018-02-27] MEDS: INSULIN GLARGINE 300 UNIT/3 ML PEN SUBQ SCH (08:42)
[2018-02-27] MEDS: INSULIN ASPART 300 UNIT/3 ML PEN SUBQ SCH ×2 (08:42→12:04)
[2018-02-27] MEDS: POLYETHYLENE GLYCOL 3350 17 GM PACKET PO SCH (08:43)
[2018-02-27] MEDS: SODIUM CHLORIDE FLUSH 0.9% 10 ML SYRINGE IVP SCH (08:47)
[2018-02-27 08:56] LABS: AMYLASE 49 U/L (28-100); LIPASE 35 U/L (22-51)
--- NOTE | 2018-02-27 11:33 | Discharge Plan ---
Discharge Plan Disposition: 01 Home, Self Care Condition: Stable Diet: Diabetic Activity Restrictions: Activity as Tolerated Shower Restrictions: No Assistance Devices: Cane Weight Bearing: Full Weight Instruction Topics: Heart Failure Warning Signs, Heart Failure Tracking Weight Additional Instructions or Follow Up instructions: Resume all your medications except: Take 1/4 tablet of Torsemide (2.5 mg) on Mon, Wed, Fri or everyday if you get swelling or start gaining water weight. See your PCP in 1-2 weeks in follow up. No Smoking: If you smoke, Please STOP! Call for help. Follow-up with: Sara Alvarez MD [Primary Care Provider] -
[2018-02-27] MEDS ORDERED: WARFARIN 5 MG TABLET PO SCH (11:42)
--- NOTE | 2018-03-02 20:19 | DISCHARGE SUMMARY ---
Physician: Rachael Holt MD DATE OF ADMISSION: 02/26/2018 DATE OF DISCHARGE: 02/27/2018 HISTORY OF PRESENT ILLNESS: This is a 63-year-old white male with a history of 3 MIs and ischemic cardiomyopathy, has a pacemaker-defibrillator, history of prior strokes leaving him with dysarthria, history of hypertension, type 2 diabetes, migraines. The patient presents after several days of having to "sleep through his migraine headache." During this, he only awoke to take his medications, which included 2 diuretics, but ate and drank nearly nothing. On the day of admission, he got up to use the bathroom, had warning sign of dizziness and had syncope, fell and woke up on the floor. He struck the left lateral chest. The heard the fall, found him on the floor, checked him for signs of a stroke and called EMS. The paramedics found him to have a systolic blood pressure of 76 and a fingerstick glucose of 76. He was brought to the emergency room, found to be dehydrated with acute kidney injury, a creatinine of 2.4, which usually is 1.0. He was started on fluids and placed in Observation for evaluation of syncope and for management of dehydration with acute kidney injury. HOSPITAL COURSE AND DISCHARGE DIAGNOSES: 1. Syncope and collapse. The patient had negative troponins. An Echo showed LVEF of 45%. Brain imaging showed no evidence of a new cerebrovascular accident or any trauma. He and his reported that he had just had a stable interrogation of his defibrillator several weeks previously. Telemetry showed no evidence of malignant arrhythmias. Therefore, the cause of the syncope was felt to be volume depletion from having no p.o. intake for about 48 hours and being dehydrated. He was managed with IV fluids, and his Torsemide and Spironolactone were on hold for 2 days. 2. Dehydration. The patient was placed on fluids and his 2 diuretics were stopped. On the day of discharge, his Spironolactone was advised to resume the following day, but Torsemide 10 mg daily was decreased significantly down to 2.5 mg and only to take on Saturday, Saturday, Saturday. 3. Acute tubular necrosis. His creatinine was 2.4 on admission, improved to 2.0 and then 1.0. He required IV hydration slowly so as not to produce pulmonary edema. Because of this, his Observation status changed to inpatient status and then he recovered more quickly than expected and was able to be discharged on the very following day. The management of his diuretics is as described above. 4. Chest wall contusion. The patient required pain medications. Incentive spirometry was ordered to prevent atelectasis. He had rib x-rays which showed no fractures. 5. Ischemic cardiomyopathy. The patient was continued on his Coreg; the losartan, spironolactone, and torsemide were stopped while he had low blood pressure initially and also while his creatinine was abnormal. The resumptions are as above. An Echo showed an inferior scar and LVEF of 45%. 6. Ventricular tachycardia. The patient had a few short runs of monomorphic ventricular tachycardia, 3-beat run and 8-beat run. He was also noted to have frequent pacing on telemetry, which was appropriate. Magnesium and potassium were followed daily and levels were normal. 7. Type 2 diabetes. The patient was on monitoring with fingerstick glucoses and sliding scale insulin coverage. His oral antihyperglycemics were held during this hospitalization. 8. History of cerebrovascular accident. The patient's dysarthria is obvious when he is stressed or tired, which was noted intermittently while he was speaking. There were no new neurologic changes. The patient was on Coumadin and states that this was for cerebrovascular accident and does not think it was for atrial fibrillation. The Coumadin was inadvertently on hold while he was here two days, and he received an extra dose at the time of discharge. LABS AND IMAGING: Reviewed and summarized above. ALLERGIES: CODEINE, LISINOPRIL, NIACIN, PENICILLIN. MEDICATIONS AT THE TIME OF DISCHARGE 1. Baby aspirin daily. 2. Baclofen 10 mg t.i.d. 3. Coreg 12.5 mg b.i.d. 4. Gabapentin 100 mg t.i.d. 5. NovoLog insulin 25 units subcutaneously 6. Lantus insulin 55 units subcutaneous b.i.d. 7. Losartan 12.5 mg daily. 8. Metoclopramide 5 mg q.i.d. 9. Morphine sulfate orally 15 mg b.i.d. p.r.n. 10. Zantac 150 mg daily. 11. Spironolactone 25 mg daily. 12. Warfarin 2.5 alternating with 5 mg daily. 13. The change was in his Torsemide dose, which went from 10 mg daily down to 2.5 mg only on Saturday, Saturday, Saturday. He and his are told that if he ever needs to "sleep through a migraine for several days," he should not be taking his strong diuretic. But, if he gets leg edema or weight gain of greater than 5 pounds over 24 hours, he should resume his Torsemide daily, but to use this lower dose to prevent acute tubular necrosis. PHYSICAL EXAMINATION: VITAL SIGNS: Blood pressure 140/80 without orthostasis. Heart rate 66. HEENT: Unremarkable except he has dysarthria intermittently. NECK: Without JVD or carotid bruits. CHEST: Clear. HEART: Tones normal. ABDOMEN: Soft. Positive bowel sounds, nontender. EXTREMITIES: No edema. No skin tenting. NEUROLOGIC: Dysarthric speech. 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 CODE STATUS: FULL CODE. Time required to complete discharge, dictation, patient education, chart review and prescription orders: 60 minutes. cc: Sara Alvarez MD TD: 03/01/2018 19:18 MTDD
--- NOTE | 2018-03-04 09:38 | Ultrasound Report ---
Procedure Date: 02/26/2018 Accession Number: [id number] / [id number] Procedure: US - Carotid Doppler Complete CPT Code: FULL RESULT: EXAM: BILATERAL CAROTID AND VERTEBRAL ARTERY DUPLEX DOPPLER ULTRASOUND. EXAM DATE: 02/26/2018 10:20 AM CLINICAL HISTORY: Syncope versus seizure. COMPARISON: None. TECHNIQUE: Grayscale imaging, color Doppler, and duplex spectral Doppler were used to evaluate the carotid and vertebral arteries bilaterally. Static images were obtained. FINDINGS: There is minimal focal atherosclerotic plaque at both carotid bulbs with subjectively minimal intimal thickening throughout the bilateral carotid systems. No hemodynamically significant plaque is identified in the right or left common or internal carotid arteries. Normal antegrade flow is present in bilateral vertebral arteries. VELOCITIES (cm/sec): Right CCA mid: PSV 118 cm/sec CCA dist: PSV 119 cm/sec ICA prox: PSV 75 cm/sec, EDV 30 cm/sec ICA mid: PSV 70 cm/sec, EDV 28 cm/sec ICA dist: PSV 80 cm/sec, EDV 27 cm/sec ECA: PSV 142 cm/sec Vert: PSV 46 cm/sec ICA/CCA: 0.67 Left CCA mid: PSV 117 cm/sec CCA dist: PSV 113 cm/sec ICA prox: PSV 67 cm/sec, EDV 21 cm/sec ICA mid: PSV 89 cm/sec, EDV 37 cm/sec ICA dist: PSV 76 cm/sec, EDV 28 cm/sec ECA: PSV 122 cm/sec Vert: PSV 36 cm/sec ICA/CCA: 0.78 ICA diameter stenosis: Right: <50% by velocity and <70% by NASCET criteria. Left: <50% by velocity and <70% by NASCET criteria. IMPRESSION: 1. No hemodynamically significant bilateral carotid artery plaquing. 2. In the right carotid artery there are no elevated carotid artery velocities to suggest hemodynamically significant stenosis. 3. In the left carotid artery there are no elevated carotid artery velocities to suggest hemodynamically significant stenosis. 4. Normal antegrade flow is present in bilateral vertebral arteries. General Recommendations: Stenosis =50% ICA - Follow-up ultrasound 6-12 months Stenosis <50% ICA - High Risk Patient with plaque - Follow-up ultrasound 1-2 years Normal Study but High Risk Patient - Follow-up ultrasound 3-5 years Management recommendations and diagnostic criteria are based on current IAC endorsed standards in "Carotid Artery Stenosis: Grayscale and Doppler Ultrasound Diagnosis." Validated velocity measurements with angiographic measurements and velocity criteria are extrapolated from diameter data as defined by the Society of Radiologists in Ultrasound Consensus Conference Radiology 2003;229;340-346.
== END 2018-02-27 12:15 | disposition home or self-care (01) | DRG 640 ==
LOC: EDUNIT# → ED 02:57 → SUPCPDRO 02:57 → OBS 06:06 → MS2 14:19 → OBSVTOIN 14:59
PROVIDERS: ADMIT Hospitalist; ATTEND Internal Medicine
DX: E86.0 Dehydration (principal); N17.0 Acute kidney failure with tubular necrosis; I42.8 Other cardiomyopathies; I47.2 Ventricular tachycardia; R55 Syncope and collapse; W19.XXXA Unspecified fall, initial encounter; I25.2 Old myocardial infarction; I69.922 Dysarthria following unspecified cerebrovascular disease; I25.5 Ischemic cardiomyopathy; Z95.810 Presence of automatic (implantable) cardiac defibrillator; I10 Essential (primary) hypertension; E11.9 Type 2 diabetes mellitus without complications; S20.219A Contusion of unspecified front wall of thorax, initial encounter; Z79.01 Long term (current) use of anticoagulants
CPT/HCPCS: 36415; 70450; 71250; 72125; 74176; 80048; 80053; 80306; 80307; 80320; 80329; 81001; 81003; 82140; 82150; 82550; 83036; 83690; 84484; 84702; 85025; 85027; 85610; 85730; 87086; 93005; 93306; 93880; 96361; 96374; 99284; 99285

== ENCOUNTER 2018-06-23 14:36 | Outpatient (CLI) | payer OTHER ==
[2018-06-23 16:09] LABS: CALCIUM 9.6 mg/dL (8.5-10.3); CREATININE 1.3 mg/dL (0.6-1.2)
[2018-06-23 16:58] LABS: HB2 TOTAL 16.6 g/dL; HEMOGLOBIN A1C 0.92 g/dL; HEMOGLOBIN A1C % 7.2 % (4.6-6.2)
== END 2018-06-23 14:37 | disposition home or self-care (01) ==
LOC: LAB 14:36
PROVIDERS: ATTEND Internal Medicine
DX: E11.9 Type 2 diabetes mellitus without complications (principal); Z79.899 Other long term (current) drug therapy
CPT/HCPCS: 36415; 80048; 83036

== ENCOUNTER 2018-07-03 11:38 | Outpatient (CLI) | payer OTHER | END 2018-07-03 11:39 | disposition critical access hospital (66) | LOC: EMS 11:38 | PROVIDERS: ATTEND Surgery | DX: R46.4 Slowness and poor responsiveness (principal); R73.09 Other abnormal glucose; R53.1 Weakness | CPT/HCPCS: A0425; A0427 ==

== ENCOUNTER 2018-07-03 11:43 | Observation (INO) | payer OTHER ==
[2018-07-03] MEDS ORDERED: SODIUM CHLORIDE 0.9% 1,000 ML IV ONE (12:22)
--- NOTE | 2018-07-03 12:27 | ED Physician Documentation ---
PD HPI ALTERED MENTAL STATUS - Stated complaint Stated Complaint: DECREASE RESPONSIVENESS - Chief complaint Chief Complaint: Neuro - History obtained from History obtained from: Patient, Family - History of Present Illness Timing - onset: Yesterday Timing - duration: Days (2) Timing - details: Gradual onset, Intermittant Quality / character: Less responsive Associated symptoms: Cough, NVD, General weakness. No: Fever, Headache, Stiff neck, Dyspnea, Urinary sx, Focal weakness, Seizure activity, Syncope Contributing factors: Diabetic. 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 This morning's blood sugar was 505 so patient stated he covered himself with fast acting of 60 units and he also took 55 units of his Lente insulin this morning. Patient states he is following his diabetic diet and taking his insulin. He denies any trauma or travel. He states his been having a lot of diarrhea the past 4 days But had stopped yesterday. Denies any abdominal pain, chest pain or shortness of breath. He does have a little nonproductive cough.Denies any recent antibiotic usage. Review of Systems Ten Systems: 10 systems reviewed and negative Constitutional: denies: Fever, Chills, Myalgias Nose: denies: Congestion Throat: denies: Sore throat Cardiac: denies: Chest pain / pressure Respiratory: reports: Cough. denies: Dyspnea GI: reports: Diarrhea. denies: Abdominal Pain, Nausea, Vomiting : denies: Dysuria, Frequency Neurologic: reports: Generalized weakness. denies: Focal weakness, Numbness, Confused, Headache, Head injury, LOC PD PAST MEDICAL HISTORY - Past Medical History Past Medical History: Yes Cardiovascular: Hypertension, High cholesterol, Coronary artery disease, MS Respiratory: None Neuro: CVA Endocrine/Autoimmune: Type 2 diabetes GI: GERD : None HEENT: Chronic vision loss, Chronic hearing loss Psych: None Musculoskeletal: Other Derm: None - Past Surgical History Past Surgical History: Yes Ortho: Other Cardiovascular: AICD Neuro: Other - Present Medications Home Medications: Ambulatory Orders Medication Instructions Recorded Confirmed RX: Baclofen 10 mg PO TID 11/06/14 07/03/18 RX: Carvedilol 12.5 mg PO DAILY 11/06/14 07/03/18 RX: Insulin Aspart [Novolog] 0 - 25 units SQ TIDWM 11/06/14 07/03/18 RX: Insulin Glargine [Lantus] 55 units SQ BID 11/06/14 07/03/18 RX: Losartan [Cozaar] 12.5 mg PO DAILY 11/06/14 07/03/18 Morphine Sulfate [Morphine Sulfate 15 mg PO BID 02/26/18 07/03/18 ER] RX: Aspirin [Children's Aspirin] 81 mg PO DAILY 02/26/18 07/03/18 RX: Gabapentin 100 mg PO TID 02/26/18 07/03/18 RX: Metoclopramide HCl 5 mg PO QID 02/26/18 07/03/18 RX: Spironolactone 25 mg PO DAILY 02/26/18 07/03/18 RX: Torsemide 10 mg PO DAILY 02/26/18 07/03/18 RX: Warfarin Sodium 2.5 mg PO TUTHSA@1600 02/26/18 07/03/18 RX: Warfarin Sodium 5 mg PO SUMOWEFR@1600 02/26/18 07/03/18 raNITIdine HCl [Ranitidine HCl] 150 mg PO DAILY 02/26/18 07/03/18 - Allergies Allergies/Adverse Reactions: Allergies Allergy/AdvReac Type Severity Reaction Status Date / Time codeine Allergy Unknown Verified 07/03/18 11:52 lisinopril Allergy Unknown Verified 07/03/18 11:52 niacin Allergy Rash Verified 07/03/18 11:52 Penicillins Allergy Respiratory Verified 07/03/18 11:52 - Social History Does the pt smoke?: Yes Smoking Status: Current every day smoker Does the pt drink ETOH?: No Does the pt have substance abuse?: No - Immunizations Immunizations are current?: Yes - POLST Patient has POLST: No POLST Status: Full Code PD ED PE NORMAL - Vitals Vital signs reviewed: Yes - General General: Alert and oriented X 3, No acute distress, Well developed/nourished - HEENT HEENT: PERRL, EOMI, Moist mucous membranes, Pharynx benign - Neck Neck: Supple, no meningeal sign - Cardiac Cardiac: RRR, No murmur - Respiratory Respiratory: Clear bilaterally - Abdomen Abdomen: Normal bowel sounds, Soft, Non tender, Non distended - Back Back: No CVA TTP - Derm Derm: Normal color, Warm and dry - Extremities Extremities: No deformity - Neuro Neuro: Alert and oriented X 3, No sensory deficit, Other (Mild dysarthria and left leg strength 4/5. Per this is old.) - Psych Psych: Normal mood, Normal affect Results - Vitals Vitals: Vital Signs - 24 hr 07/03/18 07/03/18 07/03/18 11:45 12:50 13:30 Temperature 36.4 C L Heart Rate 82 64 61 Respiratory 16 18 14 Rate Blood Pressure 109/68 123/66 152/81 H O2 Saturation 98 98 96 Oxygen O2 Source Room air - EKG (time done) 1238 Rate: Rate (enter#) (60) Rhythm: Paced - Labs Labs: Laboratory Tests 07/03/18 07/03/18 07/03/18 12:09 12:09 12:09 WBC 5.6 RBC 4.47 L Hgb 14.7 Hct 43.0 MCV 96.1 H MCH 33.0 H MCHC 34.3 RDW 14.1 Plt Count 206 MPV 8.8 Neut # (Auto) 3.6 Lymph # (Auto) 1.5 Bowman # (Auto) 0.4 Eos # (Auto) 0.1 Baso # (Auto) 0.0 Absolute Nucleated RBC 0.00 Nucleated RBC % 0.1 PT INR Sodium 135 Potassium 3.3 L Chloride 103 Carbon Dioxide 24 Anion Gap 8.0 BUN 33 H Creatinine 1.5 H Estimated GFR (MDRD) 48 L Glucose 65 L Calcium 9.3 Total Bilirubin 1.2 H AST 21 ALT 22 Alkaline Phosphatase 63 Troponin I < 0.04 Total Protein 7.6 Albumin 3.9 Globulin 3.7 Albumin/Globulin Ratio 1.1 Lipase 34 Serum Ketones NEGATIVE 07/03/18 12:09 WBC RBC Hgb Hct MCV MCH MCHC RDW Plt Count MPV Neut # (Auto) Lymph # (Auto) Bowman # (Auto) Eos # (Auto) Baso # (Auto) Absolute Nucleated RBC Nucleated RBC % PT 42.7 H INR 3.9 H Sodium Potassium Chloride Carbon Dioxide Anion Gap BUN Creatinine Estimated GFR (MDRD) Glucose Calcium Total Bilirubin AST ALT Alkaline Phosphatase Troponin I Total Protein Albumin Globulin Albumin/Globulin Ratio Lipase Serum Ketones PD MEDICAL DECISION MAKING - ED course Complexity details: reviewed results, re-evaluated patient, considered differential (Uncontrolled diabetes, DKA,TIA, CVA, UTI, pneumonia nonketotic hyperglycemia), d/w patient, d/w family, d/w PMD ED course: 1339 patient had a sandwich after the blood sugar from chemistry was 64. However patient was less responsive. Stat Accu-Chek was done and it was 49. D50 was given immediately. 1501Patient awake alert and oriented. Patient and inform of test results. Patient agreed to admission as his blood sugar is labile. He was asked to give us a urine specimen. 1510 Case discussed with hospitalist Dr. Graf who will admit the patient to observation. Repeat Accu- Chek is 211 per nurse. Departure - Departure Disposition: ED Place in Observation Clinical Impression: Altered mental status, Hypoglycemia, Uncontrolled diabetes mellitus Condition: Stable
[2018-07-03 12:28] LABS: BASOPHILS % (AUTO) 0.3 %; EOSINOPHILS # (AUTO) 0.1 10^3/uL (0.0-0.7); EOSINOPHILS % (AUTO) 2.3 %; HGB - HEMOGLOBIN 14.7 g/dL (14.0-18.0); LYMPHOCYTES # (AUTO) 1.5 10^3/uL (1.5-3.5); MEAN CORPUSCULAR HGB CONC 34.3 g/dL (32.0-36.0); MEAN CORPUSCULAR VOLUME 96.1 fL (80.0-94.0); MEAN PLATELET VOLUME 8.8 fL (7.4-11.4); MONOCYTES # (AUTO) 0.4 10^3/uL (0.0-1.0); MONOCYTES % (AUTO) 6.4 %; NEUTROPHILS # (AUTO) 3.6 10^3/uL (1.5-6.6); PLT - PLATELET COUNT 206 10^3/uL (130-450); RED BLOOD COUNT 4.47 10^6/uL (4.70-6.10); RED CELL DISTRIBUTION WIDTH 14.1 % (12.0-15.0); WHITE BLOOD COUNT 5.6 x10^3/uL (4.8-10.8)
[2018-07-03 12:36] LABS: ALBUMIN 3.9 g/dL (3.2-5.5); ALBUMIN/GLOBULIN RATIO 1.1 (1.0-2.2); ALKALINE PHOSPHATASE 63 IU/L (42-121); ALT ALANINE AMINOTRANSFERASE 22 IU/L (10-60); AST ASPARTATE AMINOTRANSFERASE 21 IU/L (10-42); BILIRUBIN,TOTAL 1.2 mg/dL (0.2-1.0); BUN - BLOOD UREA NITROGEN 33 mg/dL (6-20); CALCIUM 9.3 mg/dL (8.5-10.3); CARBON DIOXIDE - CO2 24 mmol/L (21-32); CHLORIDE 103 mmol/L (101-111); CREATININE 1.5 mg/dL (0.6-1.2); GFR - MDRD 48 (>89); GLUCOSE 65 mg/dL (70-100); LIPASE 34 U/L (22-51); SODIUM 135 mmol/L (135-145); TOTAL PROTEIN 7.6 g/dL (6.7-8.2)
[2018-07-03 12:39] LABS: KETONES, SERUM (ACETEST) NEGATIVE (NEGATIVE)
[2018-07-03 13:05] LABS: INR 3.9 (0.8-1.2); PT - PROTHROMBIN TIME 42.7 secs (9.9-12.6)
[2018-07-03] MEDS ORDERED: DEXTROSE 50% ABBOJECT 25 GM/50 ML SYRINGE IVP STA (13:41)
[2018-07-03] MEDS ORDERED: DEXTROSE 50% ABBOJECT 25 GM/50 ML SYRINGE ONE (13:44)
--- NOTE | 2018-07-03 14:21 | CT Report ---
Reason: ams Procedure Date: 07/03/2018 Accession Number: [id number] / [id number] Procedure: CT - Head W/O CPT Code: FULL RESULT: EXAM: CT HEAD EXAM DATE: 07/03/2018 02:02 PM. CLINICAL HISTORY: Acute mental status change. COMPARISON: Head without contrast 02/26/2018 3:51 AM. Head without contrast 08/17/2016 9:24 AM. TECHNIQUE: Multiaxial CT images were obtained from the foramen magnum to the vertex. Reformats: Sagittal and coronal. IV contrast: None. In accordance with CT protocol optimization, one or more of the following dose reduction techniques were utilized for this exam: automated exposure control, adjustment of mA and/or KV based on patient size, or use of iterative reconstructive technique. FINDINGS: Parenchyma: There is a stable pattern of bifrontal encephalomalacia, greater on the right than on the left, as sequela of prior infarctions. There is a stable appearance of a prior left occipital craniotomy with a small amount of adjacent encephalomalacia in the inferolateral cerebellar hemisphere. Otherwise, the teran matter white matter differentiation is intact. No intracranial hemorrhage, mass effect or abnormal extra-axial fluid collection. Extraaxial Spaces: Cortical sulcal pattern is prominent for age reflecting volume loss from prior infarcts. Appearance is stable. No subdural or epidural collections identified. Ventricles: Stable in size and position. Sinuses and Orbits: Imaged paranasal sinuses, orbits, and mastoids show no significant abnormality. Bones: No evidence of fracture or calvarial defect. Other: None. IMPRESSION: 1. Stable exam findings including bifrontal encephalomalacia from prior infarctions and prior left occipital craniotomy. 2. No appreciable acute finding; no evidence of intracranial hemorrhage mass-effect or abnormal extra-axial fluid collection. RADIA
--- NOTE | 2018-07-03 14:46 | XRAY Report ---
Reason: chest pain Procedure Date: 07/03/2018 Accession Number: [id number] / [id number] Procedure: XR - Chest 1 View X-Ray CPT Code: 69464 FULL RESULT: EXAM: CHEST RADIOGRAPHY EXAM DATE: 07/03/2018 02:25 PM. CLINICAL HISTORY: Chest pain. COMPARISON: X-ray chest PA and lateral 08/16/2012 4:04 AM. TECHNIQUE: 1 view. FINDINGS: Lungs/Pleura: Mild hypoinflation. Lungs otherwise appear clear for portable technique with apical lordotic angulation. No appreciable effusion or extra ventilatory air. Mediastinum: Heart size borderline enlarged for technique. Mediastinal and hilar contours are grossly unremarkable for technique. Other: There is a left pectoral pacer/defibrillator device in position with atrial and 2 ventricular leads in appropriate appearing position. IMPRESSION: No infiltrates. No specific abnormalities, accounting for technique. RADIA
[2018-07-03] MEDS ORDERED: PROMETHAZINE 25 MG/1 ML VIAL IM PRN (15:19)
[2018-07-03] MEDS ORDERED: ACETAMINOPHEN 325 MG TABLET PO PRN (15:19)
[2018-07-03] MEDS ORDERED: PROCHLORPERAZINE 10 MG/2 ML VIAL IVP PRN (15:19)
[2018-07-03] MEDS ORDERED: SODIUM CHLORIDE FLUSH 0.9% 10 ML SYRINGE IVP PRN (15:19)
[2018-07-03] MEDS ORDERED: oxyCODONE 5 MG TABLET PO PRN ×2 (15:19)
[2018-07-03] MEDS ORDERED: ONDANSETRON 4 MG/2 ML VIAL IVP PRN (15:19)
--- NOTE | 2018-07-03 16:25 | HISTORY & PHYSICAL EXAMINATION ---
Chief Complaint - Chief Complaint Chief Complaint: Altered mental status History of Present Illness - Admitted From Admitted From:: Emergency department - History Obtained From Records Reviewed: Yes History obtained from: Patient Exam Limitations: None - History of Present Illness HPI Comment/Other: Patient is a 63-year-old gentleman with a past medical history significant for 3 myocardial infarctions with ischemic cardiomyopathy, has a pacemaker-defibrillator, history of 3 prior strokes leaving him with dysarthria and residual left-sided weakness, hypertension, insulin-dependent type 2 diabetes, hypertension, hyperlipidemia who is on Coumadin for cardioembolic strokes and presented to the emergency department today with altered mental status. The patient states that he was in his normal state of health until about 4 days ago when he started experiencing episodes of diarrhea. He states he had diarrhea for 2 days and then it resolved. He states after that he began feeling dizzy and had a dry cough. He states that his diarrhea started back up again today. He states that yesterday in the morning his blood glucose was normal then at 9 PM the patient's blood glucose was elevated at 555 therefore he took 55 units of Lantus and 65 units of fast acting insulin. He states that when he woke up this morning his blood glucose was still elevated at 505 therefore he took 60 units of fast acting insulin and 55 units of Lantus. He states he had a doctor's appointment therefore he left for the doctor's appointment. He states that when he got up to go to his car he felt lightheaded. He states when he was walking into the doctor's office again he felt very dizzy and weak. He states that he been passed out while waiting for the doctor. The nurse called the ambulance and he was brought into the emergency department. According to the patient's the patient was acting strangely when his blood glucose was elevated and then became lethargic in the doctor's office and then passed out. The patient denies any chest pain or shortness of breath. The patient denies any fevers or chills. The patient denies any abdominal pain nausea or vomiting. The patient denies any urinary urgency or frequency. Patient denies any dysuria, neck stiffness or focal neurologic deficits. Patient denies any headache, blurred vision, runny nose, sore throat, nasal congestion, difficulty swallowing, changes in his appetite, recent unintentional weight loss, shortness of air, orthopnea, PND, increased lower extremity swelling, joint swelling, joint pain, muscle aches, back pain, or night sweats. On presentation to the emergency department the patient was hypoglycemic with a blood glucose of 65. The patient was also very lethargic and not responding very well. The patient's blood glucose dropped down to 44 and he was given a dose of D50 with which it did improve back to normal. The patient's mentation also improved with the D50. While the patient was in the emergency department he underwent a CT of his head which revealed stable exam findings including bifrontal encephalomalacia from prior infarctions and prior left occipital craniotomy. There were no appreciable acute findings. The patient also underwent a chest x-ray looking for possible pneumonia and it showed no infiltrates. The patient's lab work revealed no leukocytosis and his CBC was within normal limits. The patient's INR was slightly supratherapeutic at 3.9. The patient's electrolytes were abnormal with a potassium of 3.3 and an elevated creatinine of 1.5 with a BUN of 33. The patient's bilirubin was also slightly elevated at 1.2 but other LFTs were within normal limits. The patient's troponin was less than 0.04 and he had negative serum ketones. The patient did not have a urinalysis collected in the emergency department. The patient's vital signs remained normal. Given that the patient had taken a large dose of fast acting insulin twice over the last 24 hours along with 2 large doses of Lantus it was felt that the patient would need to be monitored overnight for any further episodes of hypoglycemia. The patient was placed in observation for metabolic encephalopathy secondary to hypoglycemia. The patient also had acute kidney injury and appeared to be dry on examination. History - Past Medical History Cardiovascular: reports: Hypertension, High cholesterol, Coronary artery disease, AR (x3) Respiratory: reports: None Neuro: reports: CVA (3 strokes with residual left-sided weakness and dysarthria) Endocrine/Autoimmune: reports: Type 2 diabetes GI: reports: GERD : reports: None HEENT: reports: Chronic vision loss, Chronic hearing loss Psych: reports: None Musculoskeletal: reports: Other Derm: reports: None MRSA Hx?: No - Past Surgical History Ortho: reports: Other Cardiovascular: reports: AICD Neuro: reports: Other - Family & Social History Family History: Mother: Alive and Well, Father: , [place] Family History Comment/Other: The patient says his family does not really talk about their medical problems and that the only person he is aware of with any medical history as his father who of a heart attack. Living arrangement: At home Living Situation: With spouse/s.o. Social History Notes: The patient has been living in [place] for the past 20 years. The patient grew up in [place] and was in the [place] so moved all over the place and retired here in [place]. The patient lives with a common-law partner with whom he has been for the last 4 years. He has 2 children 1 of whom lives in [place] and the other one lives in his basement and is currently going to school. The patient is a former smoker and smoked heavily for over 40 years. At one point he states he smoked 4 packs a day and even prior to quitting 9 ye ars ago he was smoking 1-1/2 packs/day. He states that he was once a heavy drinker but quit drinking in 1979. He denies any illicit drug use. - Substance History Use: Uses substance without health or social issues: NONE - POLST Patient has POLST: No POLST Status: Full Code Meds/Allgy - Home Medications Home Medications: Ambulatory Orders Medication Instructions Recorded Confirmed Baclofen 10 mg PO TID 11/06/14 07/03/18 Carvedilol 12.5 mg PO DAILY 11/06/14 07/03/18 Insulin Aspart [Novolog] 0 - 25 units SQ TIDWM 11/06/14 07/03/18 Insulin Glargine [Lantus] 55 units SQ BID 11/06/14 07/03/18 Losartan [Cozaar] 12.5 mg PO DAILY 11/06/14 07/03/18 Aspirin [Children's Aspirin] 81 mg PO DAILY 02/26/18 07/03/18 Gabapentin 100 mg PO TID 02/26/18 07/03/18 Metoclopramide HCl 5 mg PO QID 02/26/18 07/03/18 Morphine Sulfate [Morphine Sulfate 15 mg PO BID 02/26/18 07/03/18 ER] Spironolactone 25 mg PO DAILY 02/26/18 07/03/18 Torsemide 10 mg PO DAILY 02/26/18 07/03/18 Warfarin Sodium 2.5 mg PO TUTHSA@1600 02/26/18 07/03/18 Warfarin Sodium 5 mg PO SUMOWEFR@1600 02/26/18 07/03/18 raNITIdine HCl [Ranitidine HCl] 150 mg PO DAILY 02/26/18 07/03/18 - Allergies Allergies/Adverse Reactions: Allergies Allergy/AdvReac Type Severity Reaction Status Date / Time codeine Allergy Unknown Verified 07/03/18 11:52 lisinopril Allergy Unknown Verified 07/03/18 11:52 niacin Allergy Rash Verified 07/03/18 11:52 Penicillins Allergy Respiratory Verified 07/03/18 11:52 Review of Systems - Other Findings Other Findings: A comprehensive review of systems was performed the pertinent positives and negatives are stated above in the HPI and the remainder of the review of systems is negative. Prior Level of Functionality: Despite the patient's history of strokes with left-sided weakness and dysarthria the patient is still fairly active. He gets around the house with a cane. He has had several falls over the last year. His helps him with some of his activities of daily living but the patient is fairly independent. Exam - Vital Signs Reviewed Vital Signs: Yes Vital Signs: Vital Signs x48h Temp Pulse Pulse Resp BP BP Pulse Ox 07/03/18 16:00 36.8 C 62 17 135/66 H 100 07/03/18 13:30 61 14 152/81 H 96 07/03/18 12:50 64 18 123/66 98 07/03/18 11:45 36.4 C L 82 16 109/68 98 - Physical Exam General Appearance: positive: No acute distress, Alert, Other (Slow speech, dysarthria.) Eyes Bilateral: positive: Normal inspection, PERRL, EOMI, No lid inflammation, Conjunctivae nml, No scleral icterus ENT: positive: ENT inspection nml, Pharynx nml, Dry mucous membranes. negative: Purulent nasal drainage, Pharyngeal erythema, Oral lesions Neck: positive: Nml inspection, Thyroid nml, No JVD, Trachea midline. negative: Thyromegaly, Lymphadenopathy (R), Lymphadenopathy (L), Stiff neck, Carotid bruit, Tracheal deviation Respiratory: positive: Chest non-tender, No respiratory distress, Breath sounds nml. negative: Wheezes, Rales, Rhonchi Cardiovascular: positive: Regular rate & rhythm, No murmur, No gallop Peripheral Pulses: positive: 2+ Abdomen: positive: Non-tender, No organomegaly, Nml bowel sounds, No distention. negative: Tenderness, Guarding, Rebound, Hepatomegaly Back: positive: Nml inspection. negative: CVA tenderness (R), CVA tenderness (L) Skin: positive: Color nml, No rash, Warm, Dry. negative: Cyanosis, Diaphoresis, Pallor Extremities: positive: Non-tender, Full ROM, Nml appearance, No pedal edema Neurologic/Psychiatric: positive: Oriented x3, CN's nml (2-12), Sensation nml, Mood/affect nml, Weakness (Left sided), Slurred/abnml speech (Dyarthria) Conclusion/Plan - Problem List (1) Metabolic encephalopathy Conclusion/Plan: Patient presented with altered mental status which appears to be secondary to metabolic encephalopathy. Initially the patient was having some altered mental status with hyperglycemia and then became hypoglycemic and lethargic and passed out. The patient's metabolic encephalopathy appears to be secondary to his hyper and hypoglycemia. With resolution of hypoglycemia in the emergency department the patient's mentation was back to his baseline. Plan: Monitor patient's blood glucose and mental status Try to maintain the patient's blood glucose in the normal range Mentation appears to be improving (2) Hypoglycemia Conclusion/Plan: The patient presents to the emergency department after passing out and was found to be hypoglycemic with initial blood glucose of 65. The patient's blood glucose dropped down to 44 before he was given D50. The patient was very altered when he presented but mentation improved with improvement of hypoglycemia. Patient's hypoglycemia is likely secondary to patient receiving excessive doses of short acting and long-acting insulin together within a 12- hour period. The patient gave himself 60 and 65 units of fast acting insulin and also gave himself 55 units of Lantus twice in 12 hours. He did this because he had elevated blood glucose and his sliding scale only went up to a glucose of 400 at which it was telling him to give himself 24 units. The patient also has been having diarrhea and appears to have acute kidney injury and is dehydrated. Likely the patient's insulin is being metabolized at a slower rate given his acute kidney injury which also contributes to his hypoglycemia. Prior to the hypoglycemia the patient was hyperglycemic which may be secondary to ongoing infection the patient was having diarrhea which could have been part of a gastroenteritis. Plan: Patient was given D50 and now will be monitored closely for hypoglycemia Patient will be given gentle IV hydration Patient will be placed on sliding scale insulin We will continue the patient on his home dose of Lantus Patient will be placed on diabetic diet Patient will be observed overnight. (3) Acute renal injury Conclusion/Plan: Patient presented with creatinine of 1.5 which is elevated from his baseline of 1.0. The patient's BUN was also elevated at 33. The patient has been having diarrhea off and on for 4 days now. This likely caused dehydration along with the fact the patient does take diuretics. And due to prerenal azotemia he likely has acute kidney injury which is affecting his metabolism of insulin. Plan: Gentle IV hydration Hold diuretics Monitor creatinine Avoid nephrotoxic agents (4) Hypokalemia Conclusion/Plan: Patient has hypokalemia with a potassium of 3.3. The patient's potassium is likely decreased secondary to diarrhea and dehydration. The patient will be given gentle IV hydration and potassium replacement. We will monitor the patient's potassium daily. (5) Type 2 diabetes mellitus Conclusion/Plan: As stated above the patient was initially having hyperglycemia and then appears to have taken too much insulin and became hypoglycemic. He presented with metabolic encephalopathy but was also having metabolic encephalopathy when he was hyperglycemic. The patient's hypoglycemia may have been secondary to a brewing infection or infection from gastroenteritis as he was having diarrhea. The patient's chest x-ray was negative and he does not have fever or leukocytosis. The patient's urinalysis still is pending. 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 The patient's stated that his symptoms were worse when he was hyper and hypoglycemic. With patient receiving D50 in the emergency department his symptoms appear to have improved. The patient had a cardioembolic stroke and is on Coumadin. Patient did undergo a CT head in the emergency department that was negative. The patient will be continued on his chronic treatment for CVA with aspirin and Coumadin. (7) Ischemic cardiomyopathy Conclusion/Plan: The patient has a history of ischemic cardiomyopathy secondary to 3 MIs. The patient has had an echocardiogram just 4 months ago which showed an ejection fraction of 45-50%. On presentation the patient does appear to be dry with an elevated creatinine. We will be giving the patient gentle hydration and we are holding his diuretics. Will monitor closely for patient developing CHF. The patient will be continued on Coreg and Cozaar. We will consider restarting his torsemide and spironolactone once his dehydration has resolved. (8) Hypertension Conclusion/Plan: The patient has a history of hypertension and blood pressure is within normal limits the emergency department. In fact the blood pressure was on the low side. With IV fluids patient's blood pressure did improve. The patient will be continued on IV fluids while he is hospitalized. The patient's Coreg and Cozaar will be continued. We will continue to monitor his blood pressure and add other agents if needed. Qualifiers: Hypertension type: essential hypertension Qualified Code(s): I10 - Essential (primary) hypertension - Lab Results Lab results reviewed: Yes Fish Bones: 07/03/18 12:07/03/18 12:09 Other Lab Results: Laboratory Results WBC 5.6 x10^3/uL (4.8-10.8) 07/03/18 12:09 RBC 4.47 10^6/uL (4.70-6.10) L 07/03/18 12:09 Hgb 14.7 g/dL (14.0-18.0) 07/03/18 12:09 Hct 43.0 % (42.0-52.0) 07/03/18 12:09 MCV 96.1 fL (80.0-94.0) H 07/03/18 12:09 MCH 33.0 pg (27.0-31.0) H 07/03/18 12:09 MCHC 34.3 g/dL (32.0-36.0) 07/03/18 12:09 RDW 14.1 % (12.0-15.0) 07/03/18 12:09 Plt Count 206 10^3/uL (130-450) 07/03/18 12:09 MPV 8.8 fL (7.4-11.4) 07/03/18 12:09 Neut # (Auto) 3.6 10^3/uL (1.5-6.6) 07/03/18 12:09 Lymph # (Auto) 1.5 10^3/uL (1.5-3.5) 07/03/18 12:09 [place] # (Auto) 0.4 10^3/uL (0.0-1.0) 07/03/18 12:09 Eos # (Auto) 0.1 10^3/uL (0.0-0.7) 07/03/18 12:09 Baso # (Auto) 0.0 10^3/uL (0.0-0.1) 07/03/18 12:09 Absolute Nucleated RBC 0.00 x10^3/uL 07/03/18 12:09 Nucleated RBC % 0.1 /100WBC 07/03/18 12:09 PT 42.7 secs (9.9-12.6) H 07/03/18 12:09 INR 3.9 (0.8-1.2) H 07/03/18 12:09 Sodium 135 mmol/L (135-145) 07/03/18 12:09 Potassium 3.3 mmol/L (3.5-5.0) L 07/03/18 12:09 Chloride 103 mmol/L (101-111) 07/03/18 12:09 Carbon Dioxide 24 mmol/L (21-32) 07/03/18 12:09 Anion Gap 8.0 (6-13) 07/03/18 12:09 BUN 33 mg/dL (6-20) H 07/03/18 12:09 Creatinine 1.5 mg/dL (0.6-1.2) H 07/03/18 12:09 Estimated GFR (MDRD) 48 (>89) L 07/03/18 12:09 Glucose 65 mg/dL (70-100) L 07/03/18 12:09 Calcium 9.3 mg/dL (8.5-10.3) 07/03/18 12:09 Total Bilirubin 1.2 mg/dL (0.2-1.0) H 07/03/18 12:09 AST 21 IU/L (10-42) 07/03/18 12:09 ALT 22 IU/L (10-60) 07/03/18 12:09 Alkaline Phosphatase 63 IU/L (42-121) 07/03/18 12:09 Troponin I < 0.04 ng/mL (<0.49) 07/03/18 12:09 Total Protein 7.6 g/dL (6.7-8.2) 07/03/18 12:09 Albumin 3.9 g/dL (3.2-5.5) 07/03/18 12:09 Globulin 3.7 g/dL (2.1-4.2) 07/03/18 12:09 Albumin/Globulin Ratio 1.1 (1.0-2.2) 07/03/18 12:09 Lipase 34 U/L (22-51) 07/03/18 12:09 Serum Ketones NEGATIVE (NEGATIVE) 07/03/18 12:09 - Diagnostic Imaging Results Diagnostic Imaging Results: positive: Final report reviewed Diagnostic Imaging Results Comments: Chest x-ray Impression: No infiltrates. No specific abnormality, accounting for technique. CT head Impression: 1. Stable exam findings including bifrontal encephalomalacia from prior infarction and prior left occipital craniotomy. 2. No appreciable acute findings; no evidence of intracranial hemorrhage mass- effect or abnormal extra-axial fluid collection. - EKG Results EKG Interpreted Independently: Yes EKG Findings: Paced Core Measures - Anticipated LOS I expect patient to be DC'd or transferred within 96 hours.: Yes - DVT/VTE - Prophylaxis VTE/DVT Device ordered at admit?: Yes
[2018-07-03] MEDS: NS W/20 MEQ KCL 1,000 ML IV SCH ×2 (17:18→17:55)
[2018-07-03 17:20] LABS: BILIRUBIN,URINE NEGATIVE (NEGATIVE); GLUCOSE, URINE (UA) 500 mg/dL (NEGATIVE); KETONES,URINE (UA) NEGATIVE (NEGATIVE); LEUKOCYTE ESTERASE, URINE NEGATIVE (NEGATIVE); NITRITE,URINE NEGATIVE (NEGATIVE); OCCULT BLOOD,URINE LARGE (NEGATIVE); PH,URINE 5.5 PH (5.0-7.5); PROTEIN,URINE NEGATIVE (NEGATIVE); UROBILINOGEN,URINE 0.2 (NORMAL) E.U./dL (NORMAL)
[2018-07-03] MEDS: SODIUM CHLORIDE FLUSH 0.9% 10 ML SYRINGE IVP SCH (17:42)
[2018-07-03] MEDS: INSULIN ASPART 300 UNIT/3 ML PEN SUBQ SCH ×2 (17:42→21:36)
[2018-07-03] MEDS: METOCLOPRAMIDE 10 MG TABLET PO SCH ×2 (17:42→21:41)
[2018-07-03] MEDS ORDERED: NS W/20 MEQ KCL 1,000 ML IV SCH (17:45)
[2018-07-03 17:46] LABS: BACTERIA,URINE Rare /HPF (None Seen); CLARITY,URINE CLEAR (CLEAR); SQUAMOUS EPITHELIAL CELL,UR RARE Squamous (<= Few)
[2018-07-03] MEDS: MORPHINE ER 15 MG TABLET PO SCH (21:32)
[2018-07-03] MEDS: FAMOTIDINE 20 MG TABLET PO SCH (21:32)
[2018-07-03] MEDS: BACLOFEN 10 MG TABLET PO SCH (21:32)
[2018-07-03] MEDS: INSULIN GLARGINE 300 UNIT/3 ML PEN SUBQ SCH (21:33)
[2018-07-03] MEDS: GABAPENTIN 100 MG CAPSULE PO SCH (21:33)
[2018-07-03] MEDS: CARVEDILOL 12.5 MG TABLET PO SCH (21:39)
[2018-07-04] MEDS: SODIUM CHLORIDE FLUSH 0.9% 10 ML SYRINGE IVP SCH ×2 (04:42→08:24)
[2018-07-04] MEDS: BACLOFEN 10 MG TABLET PO SCH (05:34)
[2018-07-04] MEDS: GABAPENTIN 100 MG CAPSULE PO SCH (05:34)
[2018-07-04 05:48] LABS: BASOPHILS # (AUTO) 0.1 10^3/uL (0.0-0.1); BASOPHILS % (AUTO) 1.4 %; EOSINOPHILS # (AUTO) 0.1 10^3/uL (0.0-0.7); HGB - HEMOGLOBIN 12.7 g/dL (14.0-18.0); LYMPHOCYTES # (AUTO) 2.1 10^3/uL (1.5-3.5); LYMPHOCYTES % (AUTO) 41.9 %; MEAN CORPUSCULAR HEMOGLOBIN 33.4 pg (27.0-31.0); MEAN CORPUSCULAR VOLUME 98.1 fL (80.0-94.0); MEAN PLATELET VOLUME 8.2 fL (7.4-11.4); MONOCYTES # (AUTO) 0.4 10^3/uL (0.0-1.0); MONOCYTES % (AUTO) 8.4 %; NEUTROPHILS # (AUTO) 2.4 10^3/uL (1.5-6.6); NEUTROPHILS % (AUTO) 46.3 %; PLT - PLATELET COUNT 165 10^3/uL (130-450); RED BLOOD COUNT 3.79 10^6/uL (4.70-6.10); WHITE BLOOD COUNT 5.1 x10^3/uL (4.8-10.8)
[2018-07-04 05:55] LABS: INR 3.4 (0.8-1.2); PT - PROTHROMBIN TIME 37.4 secs (9.9-12.6)
[2018-07-04 06:21] LABS: ALBUMIN 3.1 g/dL (3.2-5.5); ALBUMIN/GLOBULIN RATIO 1.1 (1.0-2.2); BILIRUBIN,TOTAL 0.8 mg/dL (0.2-1.0); CALCIUM 8.5 mg/dL (8.5-10.3); MAGNESIUM 1.7 mg/dL (1.7-2.8); PHOSPHORUS 2.1 mg/dL (2.5-4.6); TOTAL PROTEIN 5.8 g/dL (6.7-8.2)
[2018-07-04 07:34] VITALS: BP 106/61
[2018-07-04 07:59] LABS: HB2 TOTAL 13.3 g/dL; HEMOGLOBIN A1C 0.73 g/dL; HEMOGLOBIN A1C % 7.2 % (4.6-6.2)
[2018-07-04] MEDS: FAMOTIDINE 20 MG TABLET PO SCH (08:21)
[2018-07-04] MEDS: METOCLOPRAMIDE 10 MG TABLET PO SCH (08:22)
[2018-07-04] MEDS: MORPHINE ER 15 MG TABLET PO SCH (08:22)
[2018-07-04] MEDS: CARVEDILOL 12.5 MG TABLET PO SCH (08:23)
[2018-07-04] MEDS: INSULIN GLARGINE 300 UNIT/3 ML PEN SUBQ SCH (08:23)
[2018-07-04] MEDS: INSULIN ASPART 300 UNIT/3 ML PEN SUBQ SCH (08:24)
[2018-07-04] MEDS ORDERED: ASPIRIN CHEW 81 MG TABLET PO SCH (09:00)
[2018-07-04] MEDS ORDERED: LOSARTAN 50 MG TABLET PO SCH (09:00)
[2018-07-04] MEDS ORDERED: POLYETHYLENE GLYCOL 3350 17 GM PACKET PO SCH (09:00)
--- NOTE | 2018-07-04 10:58 | Discharge Plan ---
Discharge Plan Disposition: 01 Home, Self Care Condition: Stable Diet: Diabetic Activity Restrictions: Activity as Tolerated Shower Restrictions: No Driving Restrictions: No Assistance Devices: Cane Weight Bearing: Full Weight Additional Instructions or Follow Up instructions: You presented to the emergency department after you passed out at your doctor's office. It appears that you were hypoglycemic when you presented to the emergency department. This was likely due to the fact that you took large doses of short acting insulin to try to bring your blood sugar down from the 500s. On presentation you appeared to be dehydrated and had worsening of your kidney function. Your worsening kidney function was also likely contributing to the decreased metabolism of your insulin and therefore causing you to have a low blood sugar. Your elevated blood sugar was likely caused from possible infection as you were having diarrhea and may have been having some sort of gastroenteritis. These symptoms have now resolved with giving you glucose and putting you back on your regular dose of insulin and monitoring you on a sliding scale. You were monitored in observation and now your blood glucose has been very stable. After getting hydration your kidney function returned back to normal and we replaced your electrolytes while you were hospitalized. He will now be discharged home to continue on your normal dose of insulin. I recommend that you do not take such large doses of short acting insulin again. If your blood sugar gets high please follow your sliding scale and if your blood sugar is higher than on the sliding scale give yourself the maximum dose of insulin that is recommended on your sliding scale and then recheck your blood sugar in 1 hour. If it is still elevated then give yourself additional insulin and recheck again in 1 hour. If at that point the blood glucose is still elevated then you should call your primary care physician. You are currently stable for discharge. No Smoking: If you smoke, Please STOP! Call for help. Follow-up with: Sara Alvarez MD [Primary Care Provider] -
--- NOTE | 2018-07-04 11:14 | DISCHARGE SUMMARY ---
Discharge Summary Admit Date: 07/03/18 Discharge Date: 07/04/18 Discharging Provider: Quan Graf MD Primary Care Provider: Sara Alvarez MD Code Status: Attempt Resuscitation Condition at Discharge: Stable Discharge Disposition: 01 Home, Self Care - DIAGNOSES Admission Diagnoses: 1. Metabolic encephalopathy 2. Hypoglycemia 3. Acute kidney injury 4. Hypokalemia 5. Type 2 diabetes mellitus 6. History of CVA 7. Ischemic cardiomyopathy 8. Hypertension Discharge Diagnoses with Status of Each Condition: 1. Metabolic encephalopathy: Resolved 2. Hypoglycemia: Resolved 3. Acute kidney injury: Resolved 4. Hypokalemia: Resolved 5. Type 2 diabetes mellitus: Stable 6. Hypophosphatemia: Resolved 7. History of CVA: Stable 8. Ischemic cardiomyopathy: Stable 9. Hypertension: Stable - HPI History of Present Illness: Patient is a 63-year-old gentleman with a past medical history significant for 3 myocardial infarctions with ischemic cardiomyopathy, has a pacemaker-defibrillator, history of 3 prior strokes leaving him with dysarthria and residual left-sided weakness, hypertension, insulin-dependent type 2 diabetes, hypertension, hyperlipidemia who is on Coumadin for cardioembolic strokes and presented to the emergency department today with altered mental st atus. The patient states that he was in his normal state of health until about 4 days ago when he started experiencing episodes of diarrhea. He states he had diarrhea for 2 days and then it resolved. He states after that he began feeling dizzy and had a dry cough. He states that his diarrhea started back up again today. He states that yesterday in the morning his blood glucose was normal then at 9 PM the patient's blood glucose was elevated at 555 therefore he took 55 units of Lantus and 65 units of fast acting insulin. He states that when he woke up this morning his blood glucose was still elevated at 505 therefore he took 60 units of fast acting insulin and 55 units of Lantus. He states he had a doctor's appointment therefore he left for the doctor's appointment. He states that when he got up to go to his car he felt lightheaded. He states when he was walking into the doctor's office again he felt very dizzy and weak. He states that he been passed out while waiting for the doctor. The nurse called the ambulance and he was brought into the emergency department. According to the patient's the patient was acting strangely when his blood glucose was elevated and then became lethargic in the doctor's office and then passed out. The patient denies any chest pain or shortness of breath. The patient denies any fevers or chills. The patient denies any abdominal pain nausea or vomiting. The patient denies any urinary urgency or frequency. Patient denies any dysu reymundo, neck stiffness or focal neurologic deficits. Patient denies any headache, blurred vision, runny nose, sore throat, nasal congestion, difficulty swallowing, changes in his appetite, recent unintentional weight loss, shortness of air, orthopnea, PND, increased lower extremity swelling, joint swelling, joint pain, muscle aches, back pain, or night sweats. On presentation to the emergency department the patient was hypoglycemic with a blood glucose of 65. The patient was also very lethargic and not responding very well. The patient's blood glucose dropped down to 44 and he was given a dose of D50 with which it did improve back to normal. The patient's mentation also improved with the D50. While the patient was in the emergency department he underwent a CT of his head which revealed stable exam findings including bifrontal encephalomalacia from prior infarctions and prior left occipital craniotomy. There were no appreciable acute findings. The patient also underwent a chest x-ray looking for possible pneumonia and it showed no infiltrates. The patient's lab work revealed no leukocytosis and his CBC was within normal limits. The patient's INR was slightly supratherapeutic at 3.9. The patient's electrolytes were abnormal with a potassium of 3.3 and an elevated creatinine of 1.5 with a BUN of 33. The patient's bilirubin was also slightly elevated at 1.2 but other LFTs were within normal limits. The patient's troponin was less than 0.04 and he had negative serum ketones. The patient did not have a urinalysis collected in the emergency department. The patient's vi gareth signs remained normal. Given that the patient had taken a large dose of fast acting insulin twice over the last 24 hours along with 2 large doses of Lantus it was felt that the patient would need to be monitored overnight for any further episodes of hypoglycemia. The patient was placed in observation for metabolic encephalopathy secondary to hypoglycemia. The patient also had acute kidney injury and appeared to be dry on examination. - HOSPITAL COURSE Hospital Course: Patient was placed in observation for monitoring overnight. Patient's mentation improved back to his baseline as his blood glucose improved. The patient's blood glucose remained stable throughout the course of the night. His fasting blood glucose in the morning was 107 and patient's A1c was found to be 7.2. The patient was continued on his home dose of insulin which he seemed to tolerate well. Patient was given IV fluids during his observation stay with which his creatinine improved from 1.5-1.0. Patient was also given replacement for potassium and phosphorus electrolytes which were low. The patient was feeling well in the morning and had no further symptoms therefore he was discharged home in stable condition. The patient was counseled on how to use his short acting insulin. He was told never to use such high doses of short acting insulin. The patient will follow up with his primary care physician as needed. - ALLERGIES Allergies/Adverse Reactions: Allergies Allergy/AdvReac Type Severity Reaction Status Date / Time codeine Allergy Unknown Verified 07/03/18 11:52 lisinopril Allergy Unknown Verified 07/03/18 11:52 niacin Allergy Rash Verified 07/03/18 11:52 Penicillins Allergy Respiratory Verified 07/03/18 11:52 - MEDICATIONS Home Medications: Ambulatory Orders Medication Instructions Recorded Confirmed Baclofen 10 mg PO TID 11/06/14 07/03/18 Carvedilol 12.5 mg PO DAILY 11/06/14 07/03/18 Insulin Aspart [Novolog] 0 - 25 units SQ TIDWM 11/06/14 07/03/18 Insulin Glargine [Lantus] 55 units SQ BID 11/06/14 07/03/18 Losartan [Cozaar] 12.5 mg PO DAILY 11/06/14 07/03/18 Aspirin [Children's Aspirin] 81 mg PO DAILY 02/26/18 07/03/18 Gabapentin 100 mg PO TID 02/26/18 07/03/18 Metoclopramide HCl 5 mg PO QID 02/26/18 07/03/18 Morphine Sulfate [Morphine Sulfate 15 mg PO BID 02/26/18 07/03/18 ER] Spironolactone 25 mg PO DAILY 02/26/18 07/03/18 Torsemide 10 mg PO DAILY 02/26/18 07/03/18 Warfarin Sodium 2.5 mg PO TUTHSA@1600 02/26/18 07/03/18 Warfarin Sodium 5 mg PO SUMOWEFR@1600 02/26/18 07/03/18 raNITIdine HCl [Ranitidine HCl] 150 mg PO DAILY 02/26/18 07/03/18 - PHYSICAL EXAM AT DISCHARGE General Appearance: positive: No acute distress, Alert Eyes Bilateral: positive: Normal inspection, PERRL, EOMI, No lid inflammation, Conjunctivae nml, No scleral icterus ENT: positive: ENT inspection nml, Pharynx nml, No signs of dehydration. negative: Purulent nasal drainage, Pharyngeal erythema, Oral lesions Neck: positive: Nml inspection, Thyroid nml, No JVD, Trachea midline. negative: Thyromegaly, Lymphadenopathy (R), Lymphadenopathy (L), Stiff neck, Carotid bruit, Tracheal deviation Respiratory: positive: Chest non-tender, No respiratory distress, Breath sounds nml. negative: Wheezes, Rales, Rhonchi Cardiovascular: positive: Regular rate & rhythm, No murmur, No gallop Peripheral Pulses: positive: 2+ Abdomen: positive: Non-tender, No organomegaly, Nml bowel sounds, No distention. negative: Guarding, Rebound, Hepatomegaly Back: positive: Nml inspection. negative: CVA tenderness (R), CVA tenderness (L) Skin: positive: Color nml, No rash, Warm. negative: Cyanosis, Diaphoresis, Pallor, Skin rash Extremities: positive: Non-tender, Full ROM, Nml appearance, No pedal edema Neurologic/Psychiatric: positive: Oriented x3, CN's nml (2-12), Sensation nml, Weakness (Left sided weakness), Slurred/abnml speech (Dysarthria) - LABS Result Diagrams: 07/04/18 05:30 07/04/18 05:30 Other Lab Results: Laboratory Results WBC 5.1 x10^3/uL (4.8-10.8) 07/04/18 05:30 RBC 3.79 10^6/uL (4.70-6.10) L 07/04/18 05:30 Hgb 12.7 g/dL (14.0-18.0) L 07/04/18 05:30 Hct 37.2 % (42.0-52.0) L 07/04/18 05:30 MCV 98.1 fL (80.0-94.0) H 07/04/18 05:30 MCH 33.4 pg (27.0-31.0) H 07/04/18 05:30 MCHC 34.0 g/dL (32.0-36.0) 07/04/18 05:30 RDW 14.0 % (12.0-15.0) 07/04/18 05:30 Plt Count 165 10^3/uL (130-450) 07/04/18 05:30 MPV 8.2 fL (7.4-11.4) 07/04/18 05:30 Neut # (Auto) 2.4 10^3/uL (1.5-6.6) 07/04/18 05:30 Lymph # (Auto) 2.1 10^3/uL (1.5-3.5) 07/04/18 05:30 [place] # (Auto) 0.4 10^3/uL (0.0-1.0) 07/04/18 05:30 Eos # (Auto) 0.1 10^3/uL (0.0-0.7) 07/04/18 05:30 Baso # (Auto) 0.1 10^3/uL (0.0-0.1) 07/04/18 05:30 Absolute Nucleated RBC 0.00 x10^3/uL 07/04/18 05:30 Nucleated RBC % 0.1 /100WBC 07/04/18 05:30 PT 37.4 secs (9.9-12.6) H 07/04/18 05:30 INR 3.4 (0.8-1.2) H 07/04/18 05:30 Sodium 137 mmol/L (135-145) 07/04/18 05:30 Potassium 4.2 mmol/L (3.5-5.0) 07/04/18 05:30 Chloride 106 mmol/L (101-111) 07/04/18 05:30 Carbon Dioxide 26 mmol/L (21-32) 07/04/18 05:30 Anion Gap 5.0 (6-13) L 07/04/18 05:30 BUN 20 mg/dL (6-20) 07/04/18 05:30 Creatinine 1.0 mg/dL (0.6-1.2) 07/04/18 05:30 Estimated GFR (MDRD) 76 (>89) L 07/04/18 05:30 Glucose 107 mg/dL (70-100) H 07/04/18 05:30 Glycated Hemoglobin 7.2 % (4.6-6.2) H 07/04/18 05:30 Estim Average Glucose 160 (70-100) H 07/04/18 05:30 Lactic Acid 1.4 mmol/L (0.5-2.2) 07/04/18 05:30 Calcium 8.5 mg/dL (8.5-10.3) 07/04/18 05:30 Phosphorus 2.1 mg/dL (2.5-4.6) L 07/04/18 05:30 Magnesium 1.7 mg/dL (1.7-2.8) 07/04/18 05:30 Total Bilirubin 0.8 mg/dL (0.2-1.0) 07/04/18 05:30 AST 17 IU/L (10-42) 07/04/18 05:30 ALT 20 IU/L (10-60) 07/04/18 05:30 Alkaline Phosphatase 52 IU/L (42-121) 07/04/18 05:30 Troponin I < 0.04 ng/mL (<0.49) 07/03/18 12:09 Total Protein 5.8 g/dL (6.7-8.2) L 07/04/18 05:30 Albumin 3.1 g/dL (3.2-5.5) L 07/04/18 05:30 Globulin 2.7 g/dL (2.1-4.2) 07/04/18 05:30 Albumin/Globulin Ratio 1.1 (1.0-2.2) 07/04/18 05:30 Lipase 34 U/L (22-51) 07/03/18 12:09 Urine Color YELLOW 07/03/18 17:10 Urine Clarity CLEAR (CLEAR) 07/03/18 17:10 Urine pH 5.5 PH (5.0-7.5) 07/03/18 17:10 Ur Specific [place] 1.020 (1.002-1.030) 07/03/18 17:10 Urine Protein NEGATIVE mg/dL (NEGATIVE) 07/03/18 17:10 Urine Glucose (UA) 500 mg/dL (NEGATIVE) H 07/03/18 17:10 Urine Ketones NEGATIVE mg/dL (NEGATIVE) 07/03/18 17:10 Urine Occult Blood LARGE (NEGATIVE) H 07/03/18 17:10 Urine Nitrite NEGATIVE (NEGATIVE) 07/03/18 17:10 Urine Bilirubin NEGATIVE (NEGATIVE) 07/03/18 17:10 Urine Urobilinogen 0.2 (NORMAL) E.U./dL (NORMAL) 07/03/18 17:10 Ur Leukocyte Esterase NEGATIVE (NEGATIVE) 07/03/18 17:10 Urine RBC 11-25 /HPF (0-5) H 07/03/18 17:10 Urine WBC 0-3 /HPF (0-3) 07/03/18 17:10 Ur Squamous Epith Cells RARE Squamous (<= Few) 07/03/18 17:10 Urine Bacteria Rare /HPF (None Seen) 07/03/18 17:10 Ur Microscopic Review INDICATED 07/03/18 17:10 Urine Culture Comments NOT INDICATED 07/03/18 17:10 Serum Ketones NEGATIVE (NEGATIVE) 07/03/18 12:09 - DIAGNOSTIC IMAGING Diagnostic Imaging Results: Final report reviewed Diagnostic Imaging Results Comments: Chest x-ray Impression: No infiltrates. No specific abnormality, accounting for technique. CT head Impression: 1. Stable exam findings including bifrontal encephalomalacia from prior infarction and prior left occipital craniotomy. 2. No appreciable acute findings; no evidence of intracranial hemorrhage mass- effect or abnormal extra-axial fluid collection. - FOLLOW UP Follow Up: Patient presented with hypoglycemia which resolved with glucose. Patient was monitored overnight in observation and had no further episodes of hypoglycemia. Patient's blood glucose was well controlled. Patient's hemoglobin A1c was 7.2. The patient was continued on his home insulin regimen which he will continue at home. Patient was advised not to take such high doses of short acting insulin even when his blood glucose is really high. The patient was dehydrated and was given IV fluids with which his creatinine returned to his baseline. The patient also was given electrolyte replacements. Patient will follow up with his primary care physician as needed. - TIME SPENT Time Spent in Discharge (Minutes): 40
[2018-07-04] MEDS ORDERED: NEUTRA-PHOS 250 MG TABLET PO SCH (12:00)
== END 2018-07-04 11:43 | disposition home or self-care (01) ==
LOC: EDUNIT# → ED 11:43 → MS2 15:19
PROVIDERS: ADMIT Internal Medicine; ATTEND Internal Medicine
DX: E11.649 Type 2 diabetes mellitus with hypoglycemia without coma (principal); G93.41 Metabolic encephalopathy; Z79.4 Long term (current) use of insulin; N17.9 Acute kidney failure, unspecified; E87.6 Hypokalemia; E83.39 Other disorders of phosphorus metabolism; I25.5 Ischemic cardiomyopathy; I10 Essential (primary) hypertension; I25.2 Old myocardial infarction; Z95.810 Presence of automatic (implantable) cardiac defibrillator; I69.322 Dysarthria following cerebral infarction; I69.354 Hemiplegia and hemiparesis following cerebral infarction affecting left non-dominant side; E78.5 Hyperlipidemia, unspecified; Z79.01 Long term (current) use of anticoagulants; E86.0 Dehydration; I25.10 Atherosclerotic heart disease of native coronary artery without angina pectoris; H54.7 Unspecified visual loss; H91.90 Unspecified hearing loss, unspecified ear; Z87.891 Personal history of nicotine dependence; Z79.82 Long term (current) use of aspirin; Z79.891 Long term (current) use of opiate analgesic; K21.9 Gastro-esophageal reflux disease without esophagitis; Z91.81 History of falling
CPT/HCPCS: 36415; 70450; 71045; 80053; 81001; 82009; 83036; 83605; 83690; 83735; 84100; 84484; 85025; 85610; 93005; 96361; 96374; 99284; A9270; G0378; J1815; 81003; 87086; 99283

== ENCOUNTER 2018-12-07 13:46 | Outpatient (CLI) | payer OTHER | END 2018-12-07 13:47 | disposition critical access hospital (66) | LOC: EMS 13:46 | PROVIDERS: ATTEND Surgery | DX: R11.2 Nausea with vomiting, unspecified (principal); R19.7 Diarrhea, unspecified; R10.13 Epigastric pain | CPT/HCPCS: A0425; A0429 ==

== ENCOUNTER 2018-12-07 14:05 | Emergency (ER) | payer OTHER ==
[2018-12-07] MEDS ORDERED: SODIUM CHLORIDE 0.9% 1,000 ML IV ONE (14:11)
[2018-12-07] MEDS ORDERED: MORPHINE 2 MG/ML CARPUJECT IVP STA (14:11)
[2018-12-07] MEDS ORDERED: SODIUM CHLORIDE 0.9% 500 ML IV ONE (14:11)
[2018-12-07] MEDS ORDERED: ONDANSETRON 4 MG/2 ML VIAL IVP STA ×2 (14:11→17:01)
--- NOTE | 2018-12-07 14:14 | ED Physician Documentation ---
PD HPI ABD PAIN - Stated complaint Stated Complaint: N/V/D - Chief complaint Chief Complaint: Abd Pain - History obtained from History obtained from: Patient, EMS - History of Present Illness Timing - onset: Today (63-year-old gentleman with history of ischemic cardiomyopathy, AICD in place on warfarin and history of stroke with left-sided deficits and diabetes presents with relatively sudden onset upper abdominal pain associated with vomiting and diarrhea starting at 6 AM this morning. No recent travel or sick contacts. Pain is moderate and stabbing and nonradiating. He also has back pain but that is chronic for him and he was unable to keep down his morphine this morning.) Review of Systems Ten Systems: 10 systems reviewed and negative Constitutional: denies: Fever, Chills Cardiac: denies: Chest pain / pressure, Palpitations Respiratory: denies: Dyspnea, Cough PD PAST MEDICAL HISTORY - Past Medical History Cardiovascular: Hypertension, High cholesterol, Coronary artery disease, [place] Respiratory: None Neuro: CVA Endocrine/Autoimmune: Type 2 diabetes GI: GERD : None HEENT: Chronic vision loss, Chronic hearing loss Psych: None Musculoskeletal: Other Derm: None - Past Surgical History Past Surgical History: Yes Ortho: Other Cardiovascular: AICD Neuro: Other - Present Medications Home Medications: Ambulatory Orders Medication Instructions Recorded Confirmed Baclofen 10 mg PO TID 11/06/14 07/03/18 Carvedilol 12.5 mg PO DAILY 11/06/14 07/03/18 Insulin Aspart [Novolog] 0 - 25 units SQ TIDWM 11/06/14 07/03/18 Insulin Glargine [Lantus] 55 units SQ BID 11/06/14 07/03/18 Losartan [Cozaar] 12.5 mg PO DAILY 11/06/14 07/03/18 Aspirin [Children's Aspirin] 81 mg PO DAILY 02/26/18 07/03/18 Gabapentin 100 mg PO TID 02/26/18 07/03/18 Metoclopramide HCl 5 mg PO QID 02/26/18 07/03/18 Morphine Sulfate [Morphine Sulfate 15 mg PO BID 02/26/18 07/03/18 ER] Spironolactone 25 mg PO DAILY 02/26/18 07/03/18 Torsemide 10 mg PO DAILY 02/26/18 07/03/18 Warfarin Sodium 2.5 mg PO TUTHSA@1600 02/26/1820/18 Warfarin Sodium 5 mg PO SUMOWEFR@159902/26/18 07/03/18 raNITIdine HCl [Ranitidine HCl] 150 mg PO DAILY 02/26/18 07/03/18 Loperamide [Imodium] 2 mg PO QID PRN #10 capsule 12/07/18 Ondansetron Odt [Zofran] 4 mg TL Q6H PRN #10 tablet 12/07/18 - Allergies Allergies/Adverse Reactions: Allergies Allergy/AdvReac Type Severity Reaction Status Date / Time codeine Allergy Unknown Verified 12/07/18 14:10 lisinopril Allergy Unknown Verified 12/07/18 14:10 niacin Allergy Rash Verified 12/07/18 14:10 Penicillins Allergy Respiratory Verified 12/07/18 14:10 - Social History Does the pt smoke?: Yes Smoking Status: Current every day smoker Does the pt drink ETOH?: No Does the pt have substance abuse?: No - Family History Family history: reports: Non contributory - Immunizations Immunizations are current?: Yes - POLST Patient has POLST: No POLST Status: Full Code PD ED PE NORMAL - Vitals Vital signs reviewed: Yes - General General: Alert and oriented X 3, Other (Slow to answer questions and some communication difficulties from prior stroke) - HEENT HEENT: PERRL, EOMI - Neck Neck: Supple, no meningeal sign, No bony TTP - Cardiac Cardiac: RRR, No murmur - Respiratory Respiratory: No respiratory distress, Clear bilaterally - Abdomen Abdomen: Soft, Non tender, Other (diminished bowel tones) - Back Back: No CVA TTP, No spinal TTP - Extremities Extremities: No edema, No calf tenderness / cord - Neuro Neuro: Alert and oriented X 3, Normal speech Results - Vitals Vitals: Vital Signs - 24 hr 12/07/18 12/07/18 14:06 16:20 Temperature 36.3 C L 36.6 C Heart Rate 60 76 Respiratory 20 16 Rate Blood Pressure 160/78 H 170/88 H O2 Saturation 98 96 Oxygen O2 Source Room air - Labs Labs: Laboratory Tests 12/07/18 12/07/18 12/07/18 14:32 14:32 14:32 WBC 7.5 RBC 4.33 L Hgb 13.7 L Hct 41.2 L MCV 95.2 H MCH 31.5 H MCHC 33.1 RDW 14.0 Plt Count 195 MPV 9.4 Neut # (Auto) 6.0 Lymph # (Auto) 1.0 L [place] # (Auto) 0.4 Eos # (Auto) 0.0 Baso # (Auto) 0.1 Absolute Nucleated RBC 0.00 Nucleated RBC % 0.0 PT 20.7 H INR 1.9 H Sodium 136 Potassium 4.5 Chloride 95 L Carbon Dioxide 23 Anion Gap 18.0 H BUN 18 Creatinine 1.3 H Estimated GFR (MDRD) 56 L Glucose 292 H Lactic Acid Calcium 9.7 Total Bilirubin 1.8 H AST 33 ALT 21 Alkaline Phosphatase 71 Total Protein 7.9 Albumin 4.1 Globulin 3.8 Albumin/Globulin Ratio 1.1 Lipase 33 Urine Color Urine Clarity Urine pH Ur Specific [place] Urine Protein Urine Glucose (UA) Urine Ketones Urine Occult Blood Urine Nitrite Urine Bilirubin Urine Urobilinogen Ur Leukocyte Esterase Urine RBC Urine WBC Ur Squamous Epith Cells Urine Bacteria Ur Microscopic Review Urine Culture Comments 12/07/18 12/07/18 12/07/18 14:32 15:16 16:05 WBC RBC Hgb Hct MCV MCH MCHC RDW Plt Count MPV Neut # (Auto) Lymph # (Auto) [place] # (Auto) Eos # (Auto) Baso # (Auto) Absolute Nucleated RBC Nucleated RBC % PT INR Sodium Potassium Chloride Carbon Dioxide Anion Gap BUN Creatinine Estimated GFR (MDRD) Glucose Lactic Acid 6.0 H* 3.6 H* Calcium Total Bilirubin AST ALT Alkaline Phosphatase Total Protein Albumin Globulin Albumin/Globulin Ratio Lipase Urine Color YELLOW Urine Clarity SL. CLOUDY Urine pH 8.0 H Ur Specific [place] 1.010 Urine Protein 30 H Urine Glucose (UA) >=1000 H Urine Ketones 40 H Urine Occult Blood LARGE H Urine Nitrite NEGATIVE Urine Bilirubin NEGATIVE Urine Urobilinogen 0.2 (NORMAL) Ur Leukocyte Esterase NEGATIVE Urine RBC TNTC H Urine WBC 0-3 Ur Squamous Epith Cells NONE SEEN Urine Bacteria None Seen Ur Microscopic Review INDICATED Urine Culture Comments NOT INDICATED - Rads (name of study) CT Angio Abd/Pelvis Radiology: EMP read contemporaneously (Vascular disease but without hemodynamically significant stenosis dissection or aneurysm. Bilateral kidney stones without ureteral stone or hydronephrosis. Left kidney lower pole lesion. Nonspecific increased attenuation of subcutaneous fat of lower abdominal wall, this is where he injects insulin, there is no infection clinically there. Small fat-containing umbilical hernia.) PD MEDICAL DECISION MAKING - ED course ED course: 63-year-old gentleman with history of cardiomyopathy and vascular disease presents with a syndrome most closely consistent with gastroenteritis. Given his comorbidities a CT and labs were done with findings as shown. Note the initial lactate was quite high but it was reported to me that this was drawn with a tourniquet and it was redone and much better. After a single round of pain and nausea medicine he was feeling pain-free and not nauseous and was tolerating oral without difficulty. On reexamination prior to discharge she was nontender. Departure - Departure Disposition: Home, Self Care Clinical Impression: Vomiting Diarrhea Qualifiers: Diarrhea type: presumed infectious Qualified Code(s): R19.7 - Diarrhea, unspecified Type 2 diabetes mellitus Qualifiers: Diabetes mellitus assisted insulin use: with assisted use Diabetes mellitus complication status: with hyperglycemia Qualified Code(s): E11.65 - Type 2 diabetes mellitus with hyperglycemia; Z79.4 - MCC (current) use of insulin Abdominal pain Qualifiers: Abdominal location: epigastric Qualified Code(s): R10.13 - Epigastric pain Condition: Stable Record reviewed to determine appropriate education?: Yes Instructions: ED Diarrhea Viral Prescriptions: Loperamide [Imodium] 2 mg PO QID PRN #10 capsule PRN Reason: Diarrhea Ondansetron Odt [Zofran] 4 mg TL Q6H PRN #10 tablet PRN Reason: Nausea / Vomiting Comments: You have a left kidney lesion that needs follow-up. Discuss this with your physician. If not better by 7 AM tomorrow morning please return for reevaluation, anytime if worse.
[2018-12-07 14:50] LABS: BASOPHILS # (AUTO) 0.1 10^3/uL (0.0-0.1); BASOPHILS % (AUTO) 1.1 %; EOSINOPHILS % (AUTO) 0.1 %; HGB - HEMOGLOBIN 13.7 g/dL (14.0-18.0); LYMPHOCYTES % (AUTO) 13.3 %; MEAN CORPUSCULAR HEMOGLOBIN 31.5 pg (27.0-31.0); MEAN CORPUSCULAR HGB CONC 33.1 g/dL (32.0-36.0); MEAN CORPUSCULAR VOLUME 95.2 fL (80.0-94.0); MEAN PLATELET VOLUME 9.4 fL (7.4-11.4); MONOCYTES # (AUTO) 0.4 10^3/uL (0.0-1.0); MONOCYTES % (AUTO) 4.9 %; NEUTROPHILS % (AUTO) 80.6 %; PLT - PLATELET COUNT 195 10^3/uL (130-450); RED BLOOD COUNT 4.33 10^6/uL (4.70-6.10); WHITE BLOOD COUNT 7.5 x10^3/uL (4.8-10.8)
[2018-12-07 14:53] LABS: INR 1.9 (0.8-1.2); PT - PROTHROMBIN TIME 20.7 secs (9.9-12.6)
[2018-12-07 14:59] LABS: ALBUMIN 4.1 g/dL (3.2-5.5); ALBUMIN/GLOBULIN RATIO 1.1 (1.0-2.2); BILIRUBIN,TOTAL 1.8 mg/dL (0.2-1.0); CALCIUM 9.7 mg/dL (8.5-10.3); CREATININE 1.3 mg/dL (0.6-1.2); TOTAL PROTEIN 7.9 g/dL (6.7-8.2)
[2018-12-07] MEDS ORDERED: IOVERSOL 320 100 ML VIAL IVP ONE ×2 (15:14→15:49)
[2018-12-07 15:45] LABS: BILIRUBIN,URINE NEGATIVE (NEGATIVE); GLUCOSE, URINE (UA) >=1000 mg/dL (NEGATIVE); KETONES,URINE (UA) 40 mg/dL (NEGATIVE); LEUKOCYTE ESTERASE, URINE NEGATIVE (NEGATIVE); NITRITE,URINE NEGATIVE (NEGATIVE); OCCULT BLOOD,URINE LARGE (NEGATIVE); PROTEIN,URINE 30 mg/dL (NEGATIVE); UROBILINOGEN,URINE 0.2 (NORMAL) E.U./dL (NORMAL)
[2018-12-07 15:55] LABS: BACTERIA,URINE None Seen /HPF (None Seen); CLARITY,URINE SL. CLOUDY (CLEAR); RBC,URINE TNTC /HPF (0-5); SQUAMOUS EPITHELIAL CELL,UR NONE SEEN (<= Few)
[2018-12-07 16:20] VITALS: BP 170/88
--- NOTE | 2018-12-07 17:05 | CT Report ---
Reason: IV only, abd pain, vascular dz Procedure Date: 12/07/2018 Accession Number: [id number] / [id number] Procedure: CT - ANGIO ABDOMEN/PELVIS W CPT Code: FULL RESULT: EXAM: CT ANGIOGRAM ABDOMEN AND PELVIS WITH CONTRAST EXAM DATE: 12/07/2018 03:47 PM. CLINICAL HISTORY: IV only, abd pain, vascular dz. COMPARISONS: Ultrasound 02/28/2016. CT 02/26/2018. CT 04/13/2016. TECHNIQUE: Routine helical CT angiogram imaging was performed through the abdomen and pelvis in the arterial phase. IV contrast: OPTI 320 100 ML. Enteric contrast: No. Reconstructions: Coronal, sagittal, and 3D MIP reconstructions. In accordance with CT protocol optimization, one or more of the following dose reduction techniques were utilized for this exam: automated exposure control, adjustment of mA and/or KV based on patient size, or use of iterative reconstructive technique. FINDINGS: Vasculature: Calcified atherosclerosis is seen in non-aneurysmal aorta. Peripheral luminal thrombus is seen in the distal aorta. No aortic stenosis. No dissection. No evidence for leak or rupture. Celiac axis: Widely patent. Unremarkable. SMA: Proximal calcified atherosclerosis without hemodynamically significant stenosis. Widely patent. Otherwise unremarkable. LAISHA: Patent. Renal arteries: Mild calcified atherosclerosis. Single widely patent renal arteries are seen bilaterally. Iliac arteries: Mild calcified atherosclerosis. Widely patent common, internal and external iliac arteries are seen through the level of the femoral arteries. Femoral arteries: Mild calcified atherosclerosis. Widely patent bilateral common femoral arteries, profunda femoris and proximal SFA had Lung Bases: Cardiomegaly. Pacing leads. Abdominal Solid Organs: Liver: Unremarkable. Gallbladder/bile ducts: Unremarkable. Pancreas: Unremarkable. Spleen: Typical heterogeneous pattern of enhancement on arterial phase exam. Otherwise unremarkable. Adrenal glands: Unremarkable. Kidneys: 2 nonobstructing stones in the right kidney and nonobstructing lower pole left kidney stone. Areas of renal parenchymal scarring are seen bilaterally. Ovoid 15 x 12 mm focus of decreased attenuation in the anterior aspect of left kidney lower pole measuring less than 20 HU in density, series 4 image 91. No definite corresponding cyst was seen in this location on ultrasound 02/18/2016. 10 mm right mid kidney cyst seen on ultrasound is not definitely identified. No additional mass. Peritoneal Cavity: Normal. No free fluid, free air, or acute inflammatory process. Pelvic Organs: Normal. The bladder and visualized pelvic organs are within normal limits. Bones: Remote wedge compression and anterior vertebral body height loss at T11, T12 and L1. No finding suspicious for acute or subacute vertebral fracture. Bilateral remote pars interarticularis fractures at L5 without subluxation. Other: Subcutaneous increased attenuation and fat in the infraumbilical region both to the right and left of midline. No discrete mass or abnormal fluid collection. Small fat-containing umbilical hernia. IMPRESSION: 1. Calcified atherosclerosis in the aorta and major branch vessels as detailed above. No aneurysm. No hemodynamically significant stenosis. No dissection. No definite vascular cause of pain identified. 2. Bilateral kidney stones and renal parenchymal scarring without current hydronephrosis. No ureter or bladder stone. No gross evidence for delay of renal enhancement. 3. Ovoid focal area of decreased attenuation in the left kidney lower pole. This appears to be subtly present on review of prior CT scans without gross increase in size. Density is not diagnostic of cyst and no corresponding cyst was identified in this location on prior ultrasound 02/18/2016. Follow-up ultrasound could be considered for reassessment. 4. Nonspecific increased attenuation in subcutaneous fat of lower abdominal wall. Edema/infection or inflammation could have this appearance. 5. Small fat-containing umbilical hernia. 6. Exam otherwise as above. RADIA
[2018-12-07] MEDS ORDERED: ONDANSETRON ODT 4 MG Prepack 2 TL STA (17:32)
== END 2018-12-07 17:49 | disposition home or self-care (01) ==
LOC: EDUNIT# → ED 14:05
DX: R11.2 Nausea with vomiting, unspecified (principal); R19.7 Diarrhea, unspecified; R10.13 Epigastric pain; E11.65 Type 2 diabetes mellitus with hyperglycemia; Z79.4 Long term (current) use of insulin; N28.9 Disorder of kidney and ureter, unspecified; N20.0 Calculus of kidney; K42.9 Umbilical hernia without obstruction or gangrene; K21.9 Gastro-esophageal reflux disease without esophagitis; I25.5 Ischemic cardiomyopathy; I25.10 Atherosclerotic heart disease of native coronary artery without angina pectoris; I10 Essential (primary) hypertension; Z95.810 Presence of automatic (implantable) cardiac defibrillator; I69.928 Other speech and language deficits following unspecified cerebrovascular disease; Z79.01 Long term (current) use of anticoagulants; Z79.82 Long term (current) use of aspirin; F17.200 Nicotine dependence, unspecified, uncomplicated
CPT/HCPCS: 36415; 74174; 80053; 81001; 83605; 83690; 85025; 85610; 96374; 96375; 96376; 99283; 99284; Q9967; 81003; 87086

== ENCOUNTER 2019-01-08 10:02 | Outpatient (CLI) | payer OTHER ==
[2019-01-08 10:44] LABS: BASOPHILS # (AUTO) 0.1 10^3/uL (0.0-0.1); EOSINOPHILS # (AUTO) 0.2 10^3/uL (0.0-0.7); EOSINOPHILS % (AUTO) 3.5 %; HGB - HEMOGLOBIN 13.7 g/dL (14.0-18.0); LYMPHOCYTES # (AUTO) 2.5 10^3/uL (1.5-3.5); LYMPHOCYTES % (AUTO) 35.5 %; MEAN CORPUSCULAR HEMOGLOBIN 30.5 pg (27.0-31.0); MEAN CORPUSCULAR HGB CONC 31.6 g/dL (32.0-36.0); MEAN CORPUSCULAR VOLUME 96.7 fL (80.0-94.0); MEAN PLATELET VOLUME 10.2 fL (7.4-11.4); MONOCYTES # (AUTO) 0.5 10^3/uL (0.0-1.0); MONOCYTES % (AUTO) 6.8 %; NEUTROPHILS # (AUTO) 3.7 10^3/uL (1.5-6.6); NEUTROPHILS % (AUTO) 53.1 %; PLT - PLATELET COUNT 232 10^3/uL (130-450); RED BLOOD COUNT 4.49 10^6/uL (4.70-6.10); WHITE BLOOD COUNT 6.9 x10^3/uL (4.8-10.8)
[2019-01-08 10:46] LABS: ALBUMIN 3.8 g/dL (3.2-5.5); ALBUMIN/GLOBULIN RATIO 1.1 (1.0-2.2); ALKALINE PHOSPHATASE 58 IU/L (42-121); ALT ALANINE AMINOTRANSFERASE 22 IU/L (10-60); AST ASPARTATE AMINOTRANSFERASE 21 IU/L (10-42); BILIRUBIN,TOTAL 0.8 mg/dL (0.2-1.0); BUN - BLOOD UREA NITROGEN 12 mg/dL (6-20); CALCIUM 9.1 mg/dL (8.5-10.3); CARBON DIOXIDE - CO2 23 mmol/L (21-32); CHLORIDE 105 mmol/L (101-111); CHOL/HDL RATIO 4.2 (<5.0); CHOLESTEROL 130 mg/dL; CK- CREATINE KINASE 108 IU/L (22-269); GFR - MDRD 76 (>89); GLUCOSE 103 mg/dL (70-100); HDL CHOLESTEROL 31 mg/dL; LDL CHOLESTEROL,CALCULATED 54 mg/dL; LDL/HDL RATIO 1.7 (<3.6); SODIUM 136 mmol/L (135-145); TOTAL PROTEIN 7.4 g/dL (6.7-8.2); VLDL CHOLESTEROL 45 mg/dL
[2019-01-08 11:29] LABS: HB2 TOTAL 14.8 g/dL; HEMOGLOBIN A1C 0.83 g/dL; HEMOGLOBIN A1C % 7.3 % (4.6-6.2)
== END 2019-01-08 10:03 | disposition home or self-care (01) ==
LOC: LAB 10:02
PROVIDERS: ATTEND Internal Medicine
DX: R25.1 Tremor, unspecified (principal); Z13.6 Encounter for screening for cardiovascular disorders; I10 Essential (primary) hypertension; I36.9 Nonrheumatic tricuspid valve disorder, unspecified; E11.9 Type 2 diabetes mellitus without complications; R58 Hemorrhage, not elsewhere classified; N28.9 Disorder of kidney and ureter, unspecified; Z79.899 Other long term (current) drug therapy
CPT/HCPCS: 36415; 80053; 80061; 82550; 83036; 83721; 84443; 85025

== ENCOUNTER 2019-02-05 07:05 | Outpatient (CLI) | payer OTHER ==
--- NOTE | 2019-02-06 11:42 | Ultrasound Report ---
Reason: ABNORMALITY SEEN ON L KIDNEY CT 12/07 Procedure Date: 02/05/2019 Accession Number: [id number] / [id number] Procedure: US - Retroperitoneal CPT Code: FULL RESULT: EXAM: RENAL ULTRASOUND EXAM DATE: 02/05/2019 08:10 AM. CLINICAL HISTORY: Abnormality seen on left kidney CT 12/07. COMPARISON: RETROPERITONEAL 02/02/2017 3:01 PM, ABDOMEN/PELVIS ANGIO 12/07/2018 3:37 PM, ABDOMEN/PELVIS W/O 02/26/2018 3:57 AM. TECHNIQUE: Real-time scanning was performed with static images obtained. FINDINGS: Right Kidney: 10.2 x 5.7 x 5.5 cm. 1 cm mid right renal echogenic shadowing focus. Cortical thinning. No focal renal mass or hydronephrosis. Left Kidney: 11.6 x 4.9 x 4.7 cm. Cortical thinning with wedge-shaped cortical areas of scarring noted. No left renal mass, stone or hydronephrosis. 1.9 x 1.4 x 1.4 cm anechoic inferior left renal cyst corresponds to the hypodense focus in the recent CT. Bladder: Bilateral jets seen. The prevoid bladder volume was 29.8 cc. The postvoid bladder volume was 0 cc. Other: None. IMPRESSION: 1. Inferior left renal focus corresponds to a 1.9 cm simple renal cyst. No concerning features. 2. Bilateral renal cortical thinning. 1 cm nonobstructing right renal stone. No left renal stones. No contour deforming solid renal mass or hydronephrosis. 3. Normal bladder. RADIA
== END 2019-02-05 07:06 | disposition home or self-care (01) ==
LOC: DI 07:05
PROVIDERS: ATTEND Internal Medicine
DX: N28.1 Cyst of kidney, acquired (principal); N20.0 Calculus of kidney
CPT/HCPCS: 76770

== ENCOUNTER 2019-05-04 21:46 | Outpatient (CLI) | payer OTHER | END 2019-05-04 21:47 | disposition critical access hospital (66) | LOC: EMS 21:46 | PROVIDERS: ATTEND Surgery | DX: S09.90XA Unspecified injury of head, initial encounter (principal); W18.39XA Other fall on same level, initial encounter; Y92.009 Unspecified place in unspecified non-institutional (private) residence as the place of occurrence of the external cause | CPT/HCPCS: A0425; A0429 ==

== ENCOUNTER 2019-05-04 22:05 | Emergency (ER) | payer OTHER ==
--- NOTE | 2019-05-04 22:18 | ED Physician Documentation ---
PD HPI Fall - Stated complaint Stated Complaint: GLF, DIZZY - Chief complaint Chief Complaint: Neuro - History obtained from History obtained from: Patient, Family, EMS - History of Present Illness Mechanism of injury: Syncope (near-syncope) Fall distance: Standing position Where injury occurred: Home Timing - onset: Enter time (20:00), Today Injury(ies) location: Head Quality of pain: Pain Associated symptoms: AMS, Weakness. No: LOC, Neck pain Contributing factors: Anticoagulated (warfarin) Similar symptoms before: Has not had sx before Recently seen: Not recently seen - Additional information Additional information: BIBA. Patient stood from chair at home at approximately 8 PM tonight, had sudden onset of generalized weakness, lightheadedness, felt like he was going to pass out. He fell forward and struck head on furniture but did not lose consciousness. He remained on the floor due to generalized weakness until his came home at approximately 9 PM and she called 911. She says he seems slower to answer questions than usual but is otherwise not acting unusual. FSBS by medics was 152 Review of Systems Constitutional: reports: Reviewed and negative Eyes: reports: Reviewed and negative Cardiac: reports: Reviewed and negative Respiratory: reports: Reviewed and negative GI: reports: Reviewed and negative : denies: Dysuria, Frequency, Incontinent Musculoskeletal: reports: Reviewed and negative Neurologic: reports: Generalized weakness (resolved), Focal weakness (baseline left-sided weakness (due to previous CVA)), Difficulty speaking (baseline dysarthria (due to previous CVA)), Headache, Head injury. denies: Numbness, LOC PD PAST MEDICAL HISTORY - Past Medical History Cardiovascular: Hypertension, High cholesterol, Coronary artery disease, [place] Respiratory: None Neuro: CVA Endocrine/Autoimmune: Type 2 diabetes GI: GERD : None HEENT: Chronic vision loss, Chronic hearing loss Psych: None Musculoskeletal: Other Derm: None - Past Surgical History Past Surgical History: Yes Ortho: Other Cardiovascular: AICD Neuro: Other - Present Medications Home Medications: Ambulatory Orders Medication Instructions Recorded Confirmed Baclofen 10 mg PO BID 11/06/14 07/03/18 Carvedilol 12 mg PO DAILY 11/06/14 07/03/18 Insulin Aspart [Novolog] 0 - 25 units SQ TIDWM 11/06/14 07/03/18 Insulin Glargine [Lantus] 55 units SQ BID 11/06/14 07/03/18 Losartan [Cozaar] 25 mg PO DAILY 11/06/14 07/03/18 Aspirin [Children's Aspirin] 81 mg PO DAILY 02/26/18 07/03/18 Gabapentin 300 mg PO TID 02/26/18 07/03/18 Metoclopramide HCl 5 mg PO QID 02/26/18 07/03/18 Spironolactone 25 mg PO DAILY 02/26/18 07/03/18 Torsemide 5 mg PO DAILY 02/26/18 07/03/18 Warfarin Sodium 5 mg PO DAILY 02/26/18 07/03/18 raNITIdine HCl [Ranitidine HCl] 150 mg PO DAILY 02/26/18 07/03/18 Atorvastatin [Lipitor] 40 mg PO DAILY 05/04/19 05/04/19 Urea [Ure-K] 05/04/19 Venlafaxine HCl [Venlafaxine HCl 37.5 mg PO DAILY 05/04/19 05/04/19 ER] traMADol [Ultram] 50 mg PO TID 05/04/19 05/04/19 - Allergies Allergies/Adverse Reactions: Allergies Allergy/AdvReac Type Severity Reaction Status Date / Time codeine Allergy Unknown Verified 12/07/18 14:10 lisinopril Allergy Unknown Verified 12/07/18 14:10 niacin Allergy Rash Verified 12/07/18 14:10 Penicillins Allergy Respiratory Verified 12/07/18 14:10 - Social History Does the pt smoke?: Yes Smoking Status: Current every day smoker Does the pt drink ETOH?: No Does the pt have substance abuse?: No - Immunizations Immunizations are current?: Yes - POLST Patient has POLST: No POLST Status: Full Code PD ED PE NORMAL - Vitals Vital signs reviewed: Yes - General General: Alert and oriented X 3, No acute distress, Well developed/nourished - HEENT HEENT: PERRL, EOMI - Neck Neck: Supple, no meningeal sign, No bony TTP - Cardiac Cardiac: RRR, No murmur - Respiratory Respiratory: No respiratory distress, Clear bilaterally - Abdomen Abdomen: Soft, Non tender - Back Back: No spinal TTP - Extremities Extremities: No deformity, No tenderness to palpate, Normal ROM s pain, No edema - Neuro Neuro: Alert and oriented X 3, statue maker 2-12 intact, No motor deficit, No sensory deficit, Other (mild dysarthria (slurred speech)) Eye Opening: Spontaneous Motor: Obeys Commands Verbal: Oriented GCS Score: 15 PD ED PE EXPANDED - HEENT HEENT Visual: 1 - bruising, abrasion, swelling, tenderness Results - Vitals Vitals: Vital Signs - 24 hr 05/04/19 05/05/19 05/05/19 22:04 00:14 02:05 Temperature 37.7 C H Heart Rate 83 82 77 Respiratory 16 23 17 Rate Blood Pressure 122/71 124/63 127/71 O2 Saturation 95 96 95 05/05/19 02:10 Temperature Heart Rate 78 Respiratory 25 H Rate Blood Pressure 127/71 O2 Saturation 96 Oxygen O2 Source Room air - EKG (time done) No standard instances Rate: Rate (enter#) (79) Rhythm: Paced - Labs Labs: Laboratory Tests 05/04/19 05/04/19 05/04/19 22:19 22:19 22:19 WBC 3.8 L RBC 4.93 Hgb 15.6 Hct 47.9 MCV 97.2 H MCH 31.6 H MCHC 32.6 RDW 14.0 Plt Count 156 MPV 10.2 Neut # (Auto) 2.1 Lymph # (Auto) 1.1 L [place] # (Auto) 0.4 Eos # (Auto) 0.1 Baso # (Auto) 0.0 Absolute Nucleated RBC 0.00 Nucleated RBC % 0.0 PT 19.0 H INR 1.7 H APTT 30.2 Sodium 134 L Potassium 5.1 H Chloride 97 L Carbon Dioxide 24 Anion Gap 13.0 BUN 18 Creatinine 1.4 H Estimated GFR (MDRD) 51 L Glucose 170 H Calcium 9.2 Total Bilirubin 1.9 H AST 40 ALT 36 Alkaline Phosphatase 65 Total Creatine Kinase 44 CK-MB (CK-2) Troponin I High Sens Total Protein 7.4 Albumin 4.0 Globulin 3.4 Albumin/Globulin Ratio 1.2 Lipase 32 05/04/19 05/05/19 22:19 00:25 WBC RBC Hgb Hct MCV MCH MCHC RDW Plt Count MPV Neut # (Auto) Lymph # (Auto) [place] # (Auto) Eos # (Auto) Baso # (Auto) Absolute Nucleated RBC Nucleated RBC % PT INR APTT Sodium Potassium Chloride Carbon Dioxide Anion Gap BUN Creatinine Estimated GFR (MDRD) Glucose Calcium Total Bilirubin AST ALT Alkaline Phosphatase Total Creatine Kinase CK-MB (CK-2) 2.2 Troponin I High Sens 40.0 H* 39.8 H* Total Protein Albumin Globulin Albumin/Globulin Ratio Lipase - Rads (name of study) CT head Radiology: Prelim report reviewed, See rad report CT cervical spine Radiology: Prelim report reviewed, See rad report chest xray Radiology: Prelim report reviewed, See rad report PD MEDICAL DECISION MAKING - ED course Complexity details: reviewed old records, reviewed results, re-evaluated patient, considered differential, d/w patient, d/w family ED course: On reevaluation, patient is in NAD, AAOx3. He reports feeling well and both he and his are comfortable with d/c home. Results of tonight's tests d/w patient and Departure - Departure Disposition: 01 Home, Self Care Clinical Impression: Near syncope, Head injury Condition: Good Instructions: ED Head Injury Closed Sleep Mon, ED Near Syncope Unkn Follow-Up: Sara Alvarez MD [Primary Care Provider] - Discharge Date/Time: 05/05/19 02:18
[2019-05-04 22:39] LABS: BASOPHILS % (AUTO) 1.1 %; EOSINOPHILS # (AUTO) 0.1 10^3/uL (0.0-0.7); EOSINOPHILS % (AUTO) 1.9 %; HGB - HEMOGLOBIN 15.6 g/dL (14.0-18.0); LYMPHOCYTES # (AUTO) 1.1 10^3/uL (1.5-3.5); LYMPHOCYTES % (AUTO) 28.8 %; MEAN CORPUSCULAR HEMOGLOBIN 31.6 pg (27.0-31.0); MEAN CORPUSCULAR HGB CONC 32.6 g/dL (32.0-36.0); MEAN CORPUSCULAR VOLUME 97.2 fL (80.0-94.0); MEAN PLATELET VOLUME 10.2 fL (7.4-11.4); MONOCYTES # (AUTO) 0.4 10^3/uL (0.0-1.0); MONOCYTES % (AUTO) 11.5 %; NEUTROPHILS # (AUTO) 2.1 10^3/uL (1.5-6.6); NEUTROPHILS % (AUTO) 56.4 %; PLT - PLATELET COUNT 156 10^3/uL (130-450); RED BLOOD COUNT 4.93 10^6/uL (4.70-6.10); WHITE BLOOD COUNT 3.8 x10^3/uL (4.8-10.8)
[2019-05-04 22:43] LABS: INR 1.7 (0.8-1.2)
[2019-05-04 22:50] LABS: CREATINE KINASE MB 2.2 ng/mL (0.6-6.3); PARTIAL THROMBOPLASTIN TIME 30.2 secs (24.9-33.3)
[2019-05-04 22:51] LABS: ALBUMIN/GLOBULIN RATIO 1.2 (1.0-2.2); BILIRUBIN,TOTAL 1.9 mg/dL (0.2-1.0); CALCIUM 9.2 mg/dL (8.5-10.3); CREATININE 1.4 mg/dL (0.6-1.2); TOTAL PROTEIN 7.4 g/dL (6.7-8.2)
[2019-05-04] MEDS: SODIUM CHLORIDE 0.9% 500 ML IV STA ×2 (23:20→23:35)
--- NOTE | 2019-05-04 23:29 | CT Report ---
Reason: near syncope, fall, head injury, on warfarin Procedure Date: 05/04/2019 Accession Number: [id number] / [id number] Procedure: CT - HEAD WO CPT Code: FULL RESULT: EXAM: CT HEAD EXAM DATE: 05/04/2019 10:45 PM. CLINICAL HISTORY: Near syncope, fall, head injury, on warfarin. COMPARISON: None. TECHNIQUE: Multiaxial CT images were obtained from the foramen magnum to the vertex. Reformats: Sagittal and coronal. IV contrast: None. In accordance with CT protocol optimization, one or more of the following dose reduction techniques were utilized for this exam: automated exposure control, adjustment of mA and/or KV based on patient size, or use of iterative reconstructive technique. FINDINGS: Parenchyma: Encephalomalacia in the right more than left posterior frontal lobes, compatible with previous ischemic events. No evidence of acute hemorrhage or mass-effect. Extraaxial Spaces: Normal for age. No subdural or epidural collections identified. Ventricles: Normal in size and position. Sinuses and Orbits: Imaged paranasal sinuses, orbits, and mastoids show no significant abnormality. Bones: Postoperative changes in the left occipital bone. Other: Left frontal scalp hematoma. IMPRESSION: Chronic ischemic changes in the bilateral posterior frontal lobes. No evidence of acute intracranial hemorrhage or mass-effect. Left frontal scalp hematoma. [facility]
--- NOTE | 2019-05-04 23:34 | XRAY Report ---
Reason: near-syncope with fall Procedure Date: 05/04/2019 Accession Number: [id number] / [id number] Procedure: XR - Chest 2 View X-Ray CPT Code: 29303 FULL RESULT: EXAM: CHEST RADIOGRAPHY EXAM DATE: 05/04/2019 10:36 PM. CLINICAL HISTORY: Near-syncope with fall. COMPARISON: CHEST 1 VIEW 07/03/2018 1:59 PM. TECHNIQUE: 2 views. FINDINGS: Lungs/Pleura: No focal opacities evident. No pleural effusion. No pneumothorax. Normal volumes. Mediastinum: Heart size within normal limits. No pulmonary vascular congestion. Osseous structures: No significant focal osseous lesions. 3-lead AICD device in place. IMPRESSION: No acute cardiopulmonary findings radiographically. RADIA
--- NOTE | 2019-05-04 23:35 | CT Report ---
Reason: fall, head injury Procedure Date: 05/04/2019 Accession Number: [id number] / [id number] Procedure: CT - CERVICAL SPINE WO CPT Code: FULL RESULT: EXAM: CT CERVICAL SPINE WITHOUT CONTRAST DATE: 05/04/2019 10:45 PM. HISTORY: Pain after injury. Fell. COMPARISONS: None. TECHNIQUE: Thin-section axial images were acquired of the cervical spine without contrast. Post-processing: Coronal and sagittal reformats. Other: None. In accordance with CT protocol optimization, one or more of the following dose reduction techniques were utilized for this exam: automated exposure control, adjustment of mA and/or KV based on patient size, or use of iterative reconstructive technique. FINDINGS: Alignment: No scoliosis or spondylolisthesis. Bones: No acute fracture seen. Status post left occipital craniotomy. Interspace Levels/Facets: C1-C2: Degenerative changes between the anterior arch of C1 and the odontoid. C2-C3: Mild degenerative disk disease. Congenitally small canal. Bilateral uncovertebral joint spurring. Mild left foraminal stenosis. C3-C4: Moderate degenerative disk disease. Posterior disk osteophyte complex impinging the cord with central spinal stenosis. Bilateral uncovertebral joint spurring. Mild to moderate right and moderate to severe left foraminal stenosis. C4-C5: Moderate degenerative disk disease. Posterior disk osteophyte complex with central spinal stenosis. Bilateral uncovertebral joint spurring. Moderate right and severe left foraminal stenosis. C5-C6: Moderate to severe degenerative disk disease. Posterior disk osteophyte complex with central spinal stenosis. Bilateral uncovertebral joint spurring. Moderate bilateral foraminal stenosis. C6-C7: Moderate to severe degenerative disk disease. Posterior disk osteophyte complex with central spinal stenosis. Bilateral uncovertebral joint spurring. Severe right and mild to moderate left foraminal stenosis. C7-T1: Unremarkable. Musculature: Mild atrophy. Other: No prevertebral soft tissue swelling. Bilateral carotid artery calcifications. The lung apices are clear. IMPRESSION: 1. No acute fracture or dislocation seen. 2. Multilevel degenerative disk disease and degenerative joint disease with multilevel spinal stenosis and foraminal stenosis. 3. Bilateral carotid artery calcifications. RADIA
[2019-05-05] MEDS ORDERED: ACETAMINOPHEN 325 MG TABLET PO STA (00:46)
[2019-05-05 02:06] VITALS: BP 127/71
== END 2019-05-05 02:18 | disposition home or self-care (01) ==
LOC: EDUNIT# → EDBD → ED 22:05
DX: R55 Syncope and collapse (principal); S09.90XA Unspecified injury of head, initial encounter; S00.83XA Contusion of other part of head, initial encounter; S00.81XA Abrasion of other part of head, initial encounter; W18.30XA Fall on same level, unspecified, initial encounter; Y92.009 Unspecified place in unspecified non-institutional (private) residence as the place of occurrence of the external cause; W22.03XA Walked into furniture, initial encounter; Z79.01 Long term (current) use of anticoagulants; Z79.82 Long term (current) use of aspirin; I69.354 Hemiplegia and hemiparesis following cerebral infarction affecting left non-dominant side; I69.322 Dysarthria following cerebral infarction; M50.31 Other cervical disc degeneration, high cervical region; M48.02 Spinal stenosis, cervical region; M47.812 Spondylosis without myelopathy or radiculopathy, cervical region; I10 Essential (primary) hypertension; E11.9 Type 2 diabetes mellitus without complications; Z79.4 Long term (current) use of insulin; Z95.810 Presence of automatic (implantable) cardiac defibrillator; F17.200 Nicotine dependence, unspecified, uncomplicated
CPT/HCPCS: 36415; 70450; 71046; 72125; 80053; 82550; 82553; 83690; 84484; 85025; 85610; 85730; 93005; 96360; 99284; A9270

== ENCOUNTER 2019-06-15 14:52 | Outpatient (CLI) | payer OTHER ==
[2019-06-15 15:32] LABS: CREATININE 1.3 mg/dL (0.6-1.2)
[2019-06-15 15:36] LABS: HB2 TOTAL 16.7 g/dL; HEMOGLOBIN A1C 0.98 g/dL; HEMOGLOBIN A1C % 7.5 % (4.6-6.2)
== END 2019-06-15 14:53 | disposition home or self-care (01) ==
LOC: LAB 14:52
PROVIDERS: ATTEND Internal Medicine
DX: E11.9 Type 2 diabetes mellitus without complications (principal); Z79.899 Other long term (current) drug therapy
CPT/HCPCS: 36415; 80048; 83036

== ENCOUNTER 2020-11-02 11:16 | Outpatient (CLI) | payer OTHER ==
[2020-11-02 17:56] LABS: BASOPHILS # (AUTO) 0.1 10^3/uL (0.0-0.1); EOSINOPHILS % (AUTO) 0.6 %; HCT - HEMATOCRIT 45.2 % (42.0-52.0); HGB - HEMOGLOBIN 14.4 g/dL (14.0-18.0); LYMPHOCYTES # (AUTO) 0.6 10^3/uL (1.5-3.5); LYMPHOCYTES % (AUTO) 12.4 %; MEAN CORPUSCULAR HEMOGLOBIN 30.6 pg (27.0-31.0); MEAN CORPUSCULAR HGB CONC 31.9 g/dL (32.0-36.0); MEAN CORPUSCULAR VOLUME 96.2 fL (80.0-94.0); MEAN PLATELET VOLUME 10.5 fL (7.4-11.4); MONOCYTES # (AUTO) 0.4 10^3/uL (0.0-1.0); MONOCYTES % (AUTO) 7.3 %; NEUTROPHILS % (AUTO) 78.5 %; PLT - PLATELET COUNT 214 10^3/uL (130-450); RED CELL DISTRIBUTION WIDTH 15.2 % (12.0-15.0); WHITE BLOOD COUNT 5.1 x10^3/uL (4.8-10.8)
[2020-11-02 18:13] LABS: CALCIUM 9.2 mg/dL (8.5-10.3); CREATININE 1.4 mg/dL (0.6-1.2); POTASSIUM 4.6 mmol/L (3.5-5.0)
[2020-11-02 18:30] LABS: PSA TOTAL 7.45 ng/mL (0.000-2.000)
[2020-11-02 18:36] LABS: THYROID STIMULATING HORMONE 0.86 uIU/mL (0.34-5.60)
[2020-11-02 18:38] LABS: FREE T4 (FREE THYROXINE) 0.92 ng/dL (0.58-1.64)
[2020-11-02 20:54] LABS: ESTIMATED AVERAGE GLUCOSE 183 mg/dL (70-100)
[2020-11-02 20:55] LABS: PSA FREE 1.25 ng/mL (0.16-2.81)
== END 2020-11-02 11:17 | disposition home or self-care (01) ==
LOC: LAB.N 11:16
PROVIDERS: ATTEND Internal Medicine
DX: E11.9 Type 2 diabetes mellitus without complications (principal); R97.20 Elevated prostate specific antigen [PSA]; R00.0 Tachycardia, unspecified; Z79.899 Other long term (current) drug therapy
CPT/HCPCS: 36415; 80048; 83036; 84153; 84154; 84439; 84443; 85025

== ENCOUNTER 2020-11-05 17:57 | Outpatient (CLI) | payer OTHER | END 2020-11-05 17:58 | disposition critical access hospital (66) | LOC: EMS 17:57 | DX: R55 Syncope and collapse (principal) | CPT/HCPCS: A0425; A0429 ==

== ENCOUNTER 2020-11-05 18:12 | Inpatient (IN) | payer OTHER ==
--- NOTE | 2020-11-05 18:18 | ED Physician Documentation ---
History of Present Illness - Stated complaint Stated Complaint: AMS - History obtained from History obtained from: Patient, EMS - Additonal information Additional information: 65-year-old gentleman presents by ambulance. History is limited because of acuity. Most of the history is from chart review and EMS. He has a history of ischemic cardiomyopathy with an AICD in place and history of stroke with residual dysarthria and left-sided weakness. He also has hypertension, type 2 diabetes, hyperlipidemia. He is on warfarin. He presents for altered mental status, cyanosis and hypoxemia and a syncopal episode. He reportedly syncopized at home and had a GCS of 6. His blood sugar was in the 200s. He had a pulse oximetry of 76%. Patient denies pain but admits to shortness of breath. He appears very ill. Review of Systems Unable to obtain: Confused PD PAST MEDICAL HISTORY - Past Medical History Cardiovascular: Hypertension, High cholesterol, Coronary artery disease, [place] Respiratory: None Neuro: CVA Endocrine/Autoimmune: Type 2 diabetes GI: GERD : None HEENT: Chronic vision loss, Chronic hearing loss Psych: None Musculoskeletal: Other Derm: None - Past Surgical History Past Surgical History: Yes Ortho: Other Cardiovascular: AICD Neuro: Other - Present Medications Home Medications: Ambulatory Orders Medication Instructions Recorded Confirmed Baclofen 10 mg PO BID 11/06/14 07/03/18 Carvedilol 12 mg PO DAILY 11/06/14 07/03/18 Insulin Aspart [Novolog] 0 - 25 units SQ TIDWM 11/06/14 07/03/18 Insulin Glargine [Lantus] 55 units SQ BID 11/06/14 07/03/18 Losartan [Cozaar] 25 mg PO DAILY 11/06/14 07/03/18 Aspirin [Children's Aspirin] 81 mg PO DAILY 02/26/18 07/03/18 Gabapentin 300 mg PO TID 02/26/18 07/03/18 Metoclopramide HCl 5 mg PO QID 02/26/18 07/03/18 Spironolactone 25 mg PO DAILY 02/26/18 07/03/18 Torsemide 5 mg PO DAILY 02/26/18 07/03/18 Warfarin Sodium 5 mg PO DAILY 02/26/18 07/03/18 raNITIdine HCL [Ranitidine HCl] 150 mg PO DAILY 02/26/18 07/03/18 Atorvastatin [Lipitor] 40 mg PO DAILY 05/04/19 05/04/19 Urea [Ure-K] 05/04/19 Venlafaxine HCl [Venlafaxine HCl 37.5 mg PO DAILY 05/04/19 05/04/19 ER] traMADol [Ultram] 50 mg PO TID 05/04/19 05/04/19 - Allergies Allergies/Adverse Reactions: Allergies Allergy/AdvReac Type Severity Reaction Status Date / Time codeine Allergy Unknown Verified 11/05/20 18:25 lisinopril Allergy Unknown Verified 11/05/20 18:25 niacin Allergy Rash Verified 11/05/20 18:25 Penicillins Allergy Respiratory Verified 11/05/20 18:25 - Social History Does the pt smoke?: Yes Smoking Status: Current every day smoker Does the pt drink ETOH?: No Does the pt have substance abuse?: No - Immunizations Immunizations are current?: Yes - POLST Patient has POLST: No POLST Status: Full Code PD ED PE NORMAL - Vitals Vital signs reviewed: Yes - General General: Other (He is alert and oriented x3 but some of the fine details of recent events are lost on him. He is cyanotic. He is on a nonrebreather.) - HEENT HEENT: PERRL, EOMI - Neck Neck: Supple, no meningeal sign, No bony TTP - Respiratory Respiratory: Other (Tachypneic but lungs are relatively clear.) - Abdomen Abdomen: Normal bowel sounds, Soft, Non tender - Extremities Extremities: No edema, No calf tenderness / cord Results - Vitals Vitals: Vital Signs - 24 hr 11/05/20 11/05/20 11/05/20 18:18 18:41 19:22 Temperature 38.1 C H Heart Rate 101 H 90 Respiratory 29 H 32 H 36 H Rate Blood Pressure 132/51 H 118/82 H O2 Saturation 100 100 100 11/05/20 11/05/20 19:30 20:00 Temperature Heart Rate 94 95 Respiratory 26 H 22 Rate Blood Pressure 122/81 H O2 Saturation 94 88 L Oxygen O2 Source Room air - EKG (time done) 1830 Rate: Rate (enter#) (95) Rhythm: NSR, LAE [place]: Normal Intervals: Normal HI, Other (IVCD, ? atypical LBBB) Compare to prior EKG: Changed from prior EKG Computer interpretation: Agree with computer - Labs Labs: Laboratory Tests 11/05/20 11/05/20 11/05/20 18:30 18:30 18:30 WBC 3.0 L RBC 4.93 Hgb 14.9 Hct 48.6 MCV 98.6 H MCH 30.2 MCHC 30.7 L RDW 15.5 H Plt Count 155 MPV 11.3 Neut # (Auto) 1.5 Lymph # (Auto) 1.2 L [place] # (Auto) 0.2 Eos # (Auto) 0.0 Baso # (Auto) 0.0 Absolute Nucleated RBC 0.00 Nucleated RBC % 0.0 PT 20.3 H INR 1.9 H VBG pH VBG pCO2 VBG pO2 VBG HCO3 VBG Total CO2 VBG O2 Saturation VBG Base Excess Sodium 136 Potassium 5.4 H Chloride 99 L Carbon Dioxide 22 Anion Gap 15.0 H BUN 41 H Creatinine 2.2 H Estimated GFR (MDRD) 30 L Glucose 228 H Lactic Acid Calcium 8.9 Magnesium 2.5 Total Bilirubin 1.9 H AST 99 H ALT 67 H Alkaline Phosphatase 155 H Troponin I High Sens B-Natriuretic Peptide Total Protein 7.9 Albumin 4.0 Globulin 3.9 Albumin/Globulin Ratio 1.0 Lipase 50 Nasal Adenovirus (PCR) Nasal B. parapertussis DNA (PCR) Nasal Coronavir 229E PCR Nasal Coronavir HKU1 PCR Nasal Coronavir NL63 PCR Nasal Coronavir OC43 PCR Nasal Enterovir/Rhinovir PCR Nasal Influenza B PCR Nasal Influenza A PCR Nasal Parainfluen 1 PCR Nasal Parainfluen 2 PCR Nasal Parainfluen 3 PCR Nasal Parainfluen 4 PCR Nasal RSV (PCR) Nasal B.pertussis DNA PCR Nasal C.pneumoniae (PCR) [place] Human Metapneumo PCR Nasal M.pneumoniae (PCR) Nasal SARS-CoV-2 (PCR) Ethyl Alcohol < 5.0 11/05/20 11/05/20 11/05/20 18:30 18:30 18:30 WBC RBC Hgb Hct MCV MCH MCHC RDW Plt Count MPV Neut # (Auto) Lymph # (Auto) [place] # (Auto) Eos # (Auto) Baso # (Auto) Absolute Nucleated RBC Nucleated RBC % PT INR VBG pH VBG pCO2 VBG pO2 VBG HCO3 VBG Total CO2 VBG O2 Saturation VBG Base Excess Sodium Potassium Chloride Carbon Dioxide Anion Gap BUN Creatinine Estimated GFR (MDRD) Glucose Lactic Acid 5.0 H* Calcium Magnesium Total Bilirubin AST ALT Alkaline Phosphatase Troponin I High Sens 145.5 H* B-Natriuretic Peptide 1138 H Total Protein Albumin Globulin Albumin/Globulin Ratio Lipase Nasal Adenovirus (PCR) Nasal B. parapertussis DNA (PCR) Nasal Coronavir 229E PCR Nasal Coronavir HKU1 PCR Nasal Coronavir NL63 PCR Nasal Coronavir OC43 PCR Nasal Enterovir/Rhinovir PCR Nasal Influenza B PCR Nasal Influenza A PCR Nasal Parainfluen 1 PCR Nasal Parainfluen 2 PCR Nasal Parainfluen 3 PCR Nasal Parainfluen 4 PCR Nasal RSV (PCR) Nasal B.pertussis DNA PCR Nasal C.pneumoniae (PCR) [place] Human Metapneumo PCR Nasal M.pneumoniae (PCR) Nasal SARS-CoV-2 (PCR) Ethyl Alcohol 11/05/20 11/05/20 18:30 20:03 WBC RBC Hgb Hct MCV MCH MCHC RDW Plt Count MPV Neut # (Auto) Lymph # (Auto) [place] # (Auto) Eos # (Auto) Baso # (Auto) Absolute Nucleated RBC Nucleated RBC % PT INR VBG pH 7.176 L VBG pCO2 59.3 H VBG pO2 21.7 L VBG HCO3 21.4 L VBG Total CO2 23.3 L VBG O2 Saturation 24.7 L VBG Base Excess -7.8 L Sodium Potassium Chloride Carbon Dioxide Anion Gap BUN Creatinine Estimated GFR (MDRD) Glucose Lactic Acid Calcium Magnesium Total Bilirubin AST ALT Alkaline Phosphatase Troponin I High Sens B-Natriuretic Peptide Total Protein Albumin Globulin Albumin/Globulin Ratio Lipase Nasal Adenovirus (PCR) NOT DETECTED Nasal B. parapertussis DNA (PCR) NOT DETECTED Nasal Coronavir 229E PCR NOT DETECTED Nasal Coronavir HKU1 PCR NOT DETECTED Nasal Coronavir NL63 PCR NOT DETECTED Nasal Coronavir OC43 PCR NOT DETECTED Nasal Enterovir/Rhinovir PCR NOT DETECTED Nasal Influenza B PCR NOT DETECTED Nasal Influenza A PCR NOT DETECTED Nasal Parainfluen 1 PCR NOT DETECTED Nasal Parainfluen 2 PCR NOT DETECTED Nasal Parainfluen 3 PCR NOT DETECTED Nasal Parainfluen 4 PCR NOT DETECTED Nasal RSV (PCR) NOT DETECTED Nasal B.pertussis DNA PCR NOT DETECTED Nasal C.pneumoniae (PCR) NOT DETECTED [place] Human Metapneumo PCR NOT DETECTED Nasal M.pneumoniae (PCR) NOT DETECTED Nasal SARS-CoV-2 (PCR) NOT DETECTED Ethyl Alcohol PD MEDICAL DECISION MAKING - ED course Complexity details: re-evaluated patient ED course: He was seen on arrival. He looks ill. He wants to be full code. Spoke with Marya Goetz by phone- confused x 2 days. Could not navigate remote control. Today about 5pm seemed weak and wobbly. He was in the anne, walking and leaned onto her. She helped him into the chair and became less alert. Mild cough, increased resp rate and shallow breath. No complaints about abd pain or urination. + decreased appeitite. 65-year-old gentleman presents by ambulance for altered mental status. Noted to be febrile, appears shocky with decreased peripheral perfusion. Lactate of 5. Presumed to be septic. Source not completely clear. Chest x-ray and CT of the abdomen without pertinent positive findings. Given broad-spectrum antibiotics noting penicillin allergy with "respiratory" reaction. Aztreonam, Flagyl, vancomycin. Also with 30 mL/kg bolus given lactate of 5. Dr. Hill will admit, we spoke at 8:15 PM. - Critical Care Time(min): 45 Time Includes: Direct patient care, Review records, Reassess patient, Document care, Coordinate care, Medical consult, Family consult for tx dec, See progress note Data interpretation: Labs, Pulse ox, See progress note Procedures included in critical care time: Peripheral IV Procedures excluded from critical care time: EKG - Sepsis Event Sepsis Onset Date: 11/05/20 Sepsis Onset Time: 19:00 Current Stage of Sepsis: Septic shock Initial Hypotension: Not hypotensive Possible source of Sepsis: Unknown Mental/Cognitive Status: Confused, Lethargic Capillary refill: Greater than 2 seconds Peripheral Pulse Strength: 2+ Slightly Diminished Peripheral Pulse Location: Radial Departure - Departure Disposition: [facility] DC/Xfer Clinical Impression: Septic shock, SARA (acute kidney injury), History of CVA (cerebrovascular accident), Metabolic encephalopathy Condition: Critical Discharge Date/Time: 11/05/20 21:47
[2020-11-05] MEDS ORDERED: VANCOMYCIN INJ 1.5 GM in SODIUM CHLORIDE 0.9% 500 ML IV ONE (18:22)
[2020-11-05] MEDS ORDERED: metroNIDAZOLE 500 MG/100 ML 500 MG/100 ML BAG IV ONE (18:22)
[2020-11-05] MEDS ORDERED: AZTREONAM 2 GM in SODIUM CHLORIDE 0.9% MINIBAG 100 ML IV STA (18:22)
[2020-11-05 18:38] LABS: HCT - HEMATOCRIT 48.6 % (42.0-52.0); HGB - HEMOGLOBIN 14.9 g/dL (14.0-18.0); LYMPHOCYTES # (AUTO) 1.2 10^3/uL (1.5-3.5); LYMPHOCYTES % (AUTO) 39.7 %; MEAN CORPUSCULAR HEMOGLOBIN 30.2 pg (27.0-31.0); MEAN CORPUSCULAR HGB CONC 30.7 g/dL (32.0-36.0); MEAN CORPUSCULAR VOLUME 98.6 fL (80.0-94.0); MEAN PLATELET VOLUME 11.3 fL (7.4-11.4); MONOCYTES # (AUTO) 0.2 10^3/uL (0.0-1.0); MONOCYTES % (AUTO) 7.9 %; NEUTROPHILS # (AUTO) 1.5 10^3/uL (1.5-6.6); NEUTROPHILS % (AUTO) 50.7 %; PLT - PLATELET COUNT 155 10^3/uL (130-450); RED BLOOD COUNT 4.93 10^6/uL (4.70-6.10); RED CELL DISTRIBUTION WIDTH 15.5 % (12.0-15.0)
[2020-11-05 18:39] LABS: VBG BASE EXCESS -7.8 mmol/L (-2 - +2); VBG HCO3 21.4 mmol/L (23-28); VBG OXYGEN SATURATION 24.7 % (60-80); VBG PCO2 59.3 mmHg (41-51); VBG PH 7.176 (7.31-7.41); VBG PO2 21.7 mmHg (25-47); VBG TOTAL CO2 23.3 mmol/L (24-29)
--- NOTE | 2020-11-05 18:43 | XRAY Report ---
PROCEDURE: Chest 1 View X-Ray INDICATIONS: dyspnea TECHNIQUE: One view of the chest was acquired. COMPARISON: 05/04/2019 FINDINGS: Surgical changes and devices: Pacemaker. Lungs and pleura: No pleural effusions or pneumothorax. Submaximal inspiration results in vascular c rowding. Cannot exclude pulmonary edema. Mediastinum: Mediastinal contours appear normal. Mild cardiomegaly. Bones and chest wall: No suspicious bony lesions. Overlying soft tissues appear unremarkable. IMPRESSION: Submaximal pulmonary expansion. Cannot exclude pulmonary edema. Reviewed by: Joshua Valera MD on 11/05/2020 6:41 PM PDT Approved by: Joshua Valera MD on 11/05/2020 6:41 PM PDT Station ID: [id number]
[2020-11-05 18:50] LABS: ALKALINE PHOSPHATASE 155 IU/L (42-121); ALT ALANINE AMINOTRANSFERASE 67 IU/L (10-60); AST ASPARTATE AMINOTRANSFERASE 99 IU/L (10-42); BILIRUBIN,TOTAL 1.9 mg/dL (0.2-1.0); BUN - BLOOD UREA NITROGEN 41 mg/dL (6-20); CALCIUM 8.9 mg/dL (8.5-10.3); CARBON DIOXIDE - CO2 22 mmol/L (21-32); CHLORIDE 99 mmol/L (101-111); CREATININE 2.2 mg/dL (0.6-1.2); ETOH - ETHANOL < 5.0 mg/dL; GFR - MDRD 30 (>89); GLUCOSE 228 mg/dL (70-100); LIPASE 50 U/L (22-51); MAGNESIUM 2.5 mg/dL (1.7-2.8); POTASSIUM 5.4 mmol/L (3.5-5.0); SODIUM 136 mmol/L (135-145); TOTAL PROTEIN 7.9 g/dL (6.7-8.2)
[2020-11-05 18:55] LABS: INR 1.9 (0.8-1.2); PT - PROTHROMBIN TIME 20.3 secs (9.9-12.6)
[2020-11-05] MEDS ORDERED: LACTATED RINGERS IV STA (18:56)
--- OUTSIDE RECORDS SUMMARY | 2020-11-05 19:12 | EXTERNAL MEDICAL SUMMARY RPT | Continuity of Care Document ---
:1955 Demographics Phone Unavailable Preferred Language Unknown Marital Status Unknown Gnosticism Affiliation Unknown Race Unknown Ethnic Group Unknown Author Organization [facility] Address [address] [id number] Phone Social History date description facility [phone]
--- NOTE | 2020-11-05 20:03 | CT Report ---
PROCEDURE: Abdomen/Pelvis WO INDICATIONS: sepsis, unknown source TECHNIQUE: Noncontrast 5 mm thick sections acquired from the diaphragms to the symphysis. 5 mm coronal and sagi ttal reformats were then performed. For radiation dose reduction, the following was used: automated exposure control, adjustment of mA and/or kV according to patient size. COMPARISON: CT angiogram of the abdomen and pelvis dated 12/07/2018. FINDINGS: Image quality: Excellent. ABDOMEN: Lung bases: Lung bases are clear. Cardiomegaly, pacemaker, possible LAD coronary stent coronary mary ry calcifications. Solid organs: Liver and spleen are normal in size. Gallbladder contains a gallstone. No gallbladder wall thickening. Pancreas is normal in contours. No adrenal nodules. Kidneys are normal in size, without hydronephrosis. Bilateral nonobstructing renal stones. Peritoneum and bowel: Unenhanced bowel loops demonstrate normal wall thickness and caliber. The colo n is decompressed. No free fluid or air. Nodes and vessels: No retroperitoneal or mesenteric adenopathy by size criteria. Aorta and inferior vena cava are normal in caliber. Incidental note is made of the presence of a circumaortic left han al vein. Atherosclerotic calcifications involving the aorta and bilateral iliacs. Miscellaneous: No ventral hernias. Chronic thickening in the subcutaneous fat anteriorly below the umbilicus. PELVIS: Genitourinary: Bladder wall thickness is normal. Miscellaneous: Small bilateral fat-containing inguinal hernias. Bones: No suspicious bony lesions. No vertebral body compression fractures. IMPRESSION: 1. Cholelithiasis. No CT evidence of acute cholecystitis. 2. Atherosclerosis. 3. Bilateral nonobstructing renal stones. 4. No evidence of acute abdominal process. Reviewed by: Joshua Valera MD on 11/05/2020 8:01 PM PDT Approved by: Joshua Valera MD on 11/05/2020 8:01 PM PDT Station ID: [id number]
[2020-11-05] MEDS ORDERED: ONDANSETRON ODT 4 MG TABLET TL PRN (20:20)
[2020-11-05] MEDS ORDERED: SODIUM CHLORIDE FLUSH 0.9% 10 ML SYRINGE IVP PRN (20:20)
[2020-11-05] MEDS ORDERED: ACETAMINOPHEN 325 MG TABLET PO PRN (20:20)
--- NOTE | 2020-11-05 20:36 | HISTORY & PHYSICAL EXAMINATION ---
Chief Complaint - Chief Complaint Chief Complaint: Confusion and weakness. History of Present Illness - Admitted From Admitted From:: Home - History Obtained From Records Reviewed: Yes History obtained from: Patient, Signifcant other, ER Physician, EMR Exam Limitations: History is limited from the patient as he is confused. - History of Present Illness HPI Comment/Other: This is a 65-year-old male with a past medical history significant for ischemic cardiomyopathy, CKD stage III, insulin-dependent type 2 diabetes mellitus, history of stroke with visual left-sided deficits and dysarthria who presents today due to worsening confusion and weakness over the past 2 days. He tells me that he came to the emergency department today because he has been confused over the past 2 days. He currently tells that he has no complaints whatsoever. He denies any chest pain, dyspnea, fevers, chills. Reports no cough, dysuria, ur gency, hematuria. He has no abdominal pain reports no nausea or vomiting. He reports his speech is at baseline after his stroke. He does not believe that he is confused anymore and feels much improved compared to yesterday. He denies any recent sick contacts. He reports being compliant with his medications. I did speak with his significant other, Lindsey, who tells me the patient has been increasingly confused since yesterday afternoon. She thought he was likely dehydrated. He also appeared to be weaker overall. She stated his speech was a little bit more slurred than usual but at his baseline, he does have slurred speech and has difficulty gathering his words. She states is not uncommon for him to have slightly worsening of his slurred speech speech with he is quite fatigued. She states the patient had not been complaining of anything the past few days and he told this afternoon that he did not think his heart was giving him any problems. In the emergency department, he was found to be febrile with a temperature of 38.1 C. His heart rate was in the 100s. Blood pressure was 130/51. He was tachypneic with respiratory rate in the high 20s. He was saturatin 99% on 1 L of oxygen via nasal cannula. Labs were significant for a white count of 3.0. His INR was 1.9. VBG revealed a pH 7.176, PCO2 59.3, PO2 21.7, and a bicarbonate of 21.4. His BUN was elevated at 41 and his creatinine at 2.2. His lactic acid was 5.0. AST and ALT were mildly elevated at 99 and 67 r espectively. Was 145.5 and his BNP was 1138. Alcohol was less than 5. Chest x-ray was suboptimal but did not reveal any obvious infiltrate. CT of the abdomen and pelvis revealed cholelithiasis and nonobstructing bilateral renal stones. He received nearly 3 L of IV fluids in the emergency department as well as vancomycin, aztreonam, Flagyl IV. Given the above findings, medicine was consulted for admission. We did discuss goals of care and he would like to be a full code. History - Past Medical History Cardiovascular: reports: Congestive heart failure, Hypertension, High cholesterol, Coronary artery disease, [place] Respiratory: reports: None Neuro: reports: CVA Endocrine/Autoimmune: reports: Type 2 diabetes GI: reports: GERD : reports: None HEENT: reports: Chronic vision loss, Chronic hearing loss Psych: reports: None Derm: reports: None MRSA Hx?: No - Past Surgical History Cardiovascular: reports: CABG, AICD, Cardiac catheterization - Family & Social History Family History: Mother: Alive and Well, Father: , [place] Family History Comment/Other: He tells me his mother has a history of coronary artery disease and has had multiple myocardial infarctions. He tells me his father from Covid last year although review of prior family history from 2018 show that the patient has told the provider then his father from myocardial infarction. Living arrangement: At home Living Situation: With spouse/s.o. Social History Notes: The patient lives with his significant other, Lindsey. 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 He smoked 2 packs a day for about 10 years Although review of prior records stated that he smoked a few packs a day for 40 years. He denies any recent alcohol use. - Substance History Use: Uses substance without health or social issues: NONE - POLST Patient has POLST: No POLST Status: Full Code Meds/Allgy - Home Medications Home Medications: Ambulatory Orders Medication Instructions Recorded Confirmed Baclofen 10 mg PO BID 11/06/14 07/03/18 Carvedilol 12 mg PO DAILY 11/06/14 07/03/18 Insulin Aspart [Novolog] 0 - 25 units SQ TIDWM 11/06/14 07/03/18 Insulin Glargine [Lantus] 55 units SQ BID 11/06/14 07/03/18 Losartan [Cozaar] 25 mg PO DAILY 11/06/14 07/03/18 Aspirin [Children's Aspirin] 81 mg PO DAILY 02/26/18 07/03/18 Gabapentin 300 mg PO TID 02/26/18 07/03/18 Metoclopramide HCl 5 mg PO QID 02/26/18 07/03/18 Spironolactone 25 mg PO DAILY 02/26/18 07/03/18 Torsemide 5 mg PO DAILY 02/26/18 07/03/18 Warfarin Sodium 5 mg PO DAILY 02/26/18 07/03/18 raNITIdine HCL [Ranitidine HCl] 150 mg PO DAILY 02/26/18 07/03/18 Atorvastatin [Lipitor] 40 mg PO DAILY 05/04/19 05/04/19 Urea [Ure-K] 05/04/19 Venlafaxine HCl [Venlafaxine HCl 37.5 mg PO DAILY 05/04/19 05/04/19 ER] traMADol [Ultram] 50 mg PO TID 05/04/19 05/04/19 - Allergies Allergies/Adverse Reactions: Allergies Allergy/AdvReac Type Severity Reaction Status Date / Time codeine Allergy Unknown Verified 11/05/20 18:25 lisinopril Allergy Unknown Verified 11/05/20 18:25 niacin Allergy Rash Verified 11/05/20 18:25 Penicillins Allergy Respiratory Verified 11/05/20 18:25 Review of Systems - Constitutional Constitutional: denies: Fatigue, Fever, Chills, Weakness - Eyes Eyes: denies: Blurred vision - Ears, Nose & Throat Ears, Nose & Throat: denies: Nasal congestion, Sore throat - Cardiovascular Cariovascular: denies: Palpitations, Chest pain, Edema, Exertional dyspnea, Decr. exercise tolerance - Respiratory Respiratory: denies: Cough, SOB at rest, SOB with exertion - Gastrointestinal Gastrointestinal: denies: Abdominal pain, Nausea, Vomiting - Genitourinary Genitourinary: denies: Dysuria, Frequency, Urgency, Hematuria - Musculoskeletal Musculoskeletal: denies: Limited range of motion, Muscle weakness - Neurological Neurological: reports: Focal weakness (Chronic and unchanged.), Slurred speech (Chronic and unchanged.). denies: General weakness, Headache - Hematologic/Lymphatic Hematologic/Lymphatic: denies: Anemia, Bleeding tendencies - All Other Systems All Other Systems: reports: Reviewed and negative Prior Level of Functionality: He has a prior history of multiple strokes and has residual left-sided weakness and dysarthria. He ambulates with a cane at baseline. Exam - Vital Signs Reviewed Vital Signs: Yes Vital Signs: Vital Signs x48h Temp Pulse Resp BP Pulse Ox 11/05/20 19:22 36 H 100 11/05/20 18:41 90 32 H 118/82 H 100 11/05/20 18:18 38.1 C H 101 H 29 H 132/51 H 100 - Physical Exam General Appearance: positive: Alert, Mild distress, Other (Appears ill.) Eyes Bilateral: positive: Normal inspection, PERRL, Conjunctivae nml ENT: positive: ENT inspection nml, Other (Nasal cannula in place.) Neck: positive: Nml inspection Respiratory: positive: No respiratory distress, Other (Diminished bilaterally. Not in distress but is tachypnic.). negative: Wheezes, Rales Cardiovascular: positive: Extrasystoles, Tachycardia. negative: Irregularly irregular, Bradycardia, Systolic murmur Abdomen: positive: Non-tender, No distention. negative: Tenderness, Guarding, Rebound Skin: positive: Dry, Cyanosis Extremities: positive: Pedal edema (Trace edema in bilateral lower extremities.) Neurologic/Psychiatric: positive: Slurred/abnml speech (Which is his baseline.), Other (He has mild left upper extremity weakness with about 4-5 motor strength which is his baseline.). negative: Disoriented to person, Disoriented to place Sepsis Event Note (H) - Evaluation Current Stage of Sepsis: Severe sepsis Possible source of Sepsis: positive: Unknown - Sepsis Criteria Sepsis Criteria: Recorded Temperature greater than 38.3C or Less than 36C, Recorded Heart Rate greater than 90 bpm, Recorded Respiratory Rate greater than 20, WBC count greater than 12,000 or less than 4000, [employer]: altered consciousness (unrelated to primary neuro pathology), Renal: urine output less than 0.5ml/kg/hr for 2 hours or creatinine gr, Metabolic: lactate > 2 mmol/L Conclusion/Plan - Problem List (1) Severe sepsis Conclusion/Plan: The concern here is for severe sepsis given his fever, lactic acidosis, tachyca rdia, and leukopenia. There currently does not appear to be a source of infection as his chest x-ray does not reveal an infiltrate and CT of the abdomen pelvis was unremarkable. A urinalysis is pending. Blood cultures have been obtained. He received vancomycin, aztreonam, Flagyl IV in the emergency department given his allergies. He also received 2 L of IV fluids. We will continue him on broad-spectrum antibiotics with vancomycin, aztreonam, Flagyl IV empirically until we can rule out there is no obvious source of infection. We will follow up his blood cultures and urinalysis. If his urinalysis suggests infection then we will discontinue the Flagyl IV. Continue hydrating with IV lactated Ringer's. Recheck lactic acid. Follow-up blood cultures. (2) Metabolic encephalopathy Conclusion/Plan: This is improved compared to his arrival in the emergency department and he is nearly back to his baseline.. He is oriented to self, location. He knows the month and day of the week. He is also able to tell me why he is at the hospital. He does have some slurred speech and difficulty gathering his thoughts which when speaking with the patient his significant other is his baseline. I suspect his encephalopathy related to dehydration as well as possible sepsis. We did not obtain a CT of the head given the lack of new focal deficits. We will hold off on checking an ammonia given he has already shown significant improvement. We will continue with IV hydration and antibiotics as mentioned above. (3) Lactic acidosis Conclusion/Plan: His lactic acid is elevated at 5 and he reportedly appeared quite cyanotic with poor perfusion upon arrival to the emergency department. Initial VBG also revealed a pH 7.176 and bicarb of 21.4. His anion gap elevated at 15. He did receive nearly 3 L of IV fluids in the emergency department. We will continue IV hydration with lactated Ringer's. Recheck lactic acid. We will place him on empiric antibiotics given the concern for sepsis. (4) Acute kidney injury superimposed on CKD Conclusion/Plan: He appears to have CKD secondary to his diabetes with a baseline creatinine of approximately 1.3. His creatinine today is elevated at 2.2. This is likely prerenal injury given the sepsis. We will hydrate him with IV fluids and hold his home diuretics. We will also hold his home losartan. Avoid nephrotoxins. Monitor his renal function. (5) Coronary artery disease Conclusion/Plan: He has a known history of coronary artery disease and ischemic cardiomyopathy. His troponin is elevated in the 100s but suspect this is likely demand ischemia. His EKG does show IVCD but no obvious evidence of ischemia. Continue his home aspirin and statin. We will trend his troponin and monitor on telemetry. (6) Ischemic cardiomyopathy Conclusion/Plan: He has a known history of ischemic cardiomyopathy. Per our last echocardiogram, his ejection fraction was 45 to 50%. He has an AICD in place. His BNP is elevated 1100s we are not have a baseline. His x-ray does not appear to suggest pulmonary vascular congestion. Given his elevated lactic acid and acute kidney injury as well as concern for severe sepsis, we will hydrate him with IV fluids. We will monitor his respiratory status closely. We will hold his home diuretics including torsemide and spironolactone. (7) Insulin dependent type 2 diabetes mellitus Conclusion/Plan: His blood glucose is currently elevated greater than 200. We will resume his home dose of Lantus but at half his usual dose given I suspect he will not be taking much p.o. for the time being. We will place him on sliding scale as well. Liquid diet as tolerated. Check an A1c. (8) History of CVA with residual deficit Conclusion/Plan: He has a history of prior stroke and is on Coumadin and aspirin. He has residual left-sided deficits and dysarthria. We will continue his home medications. - Lab Results Lab results reviewed: Yes Alexis Bones: 11/05/20 18:30 11/05/20 21:22 - Diagnostic Imaging Results Diagnostic Imaging Results: positive: Final report reviewed - EKG Results EKG Interpreted Independently: Yes EKG Comparison: Changed from prior EKG (Prior EKG revealed a paced rhythm.) EKG Findings: EKG reveals a sinus rhythm with interventricular conduction delay which is new compared to prior EKG. Core Measures - Anticipated LOS I expect patient to be DC'd or transferred within 96 hours.: Yes - Issues Hospital Issues and Management Plan: 65-year-old male with a history of ischemic cardiomyopathy, stroke with residual deficits, insulin-dependent type 2 diabetes mellitus presents with progressive weakness and confusion. The concern is for severe sepsis given his fever and lactic acidosis. We will admit him to the intensive care unit for close monitoring and empiric IV antibiotics. - DVT/VTE - Prophylaxis VTE/DVT Device ordered at admit?: Yes VTE/DVT Prophylaxis med ordered at admit?: Yes
[2020-11-05] MEDS ORDERED: VANCOMYCIN 1 GM VIAL ONE (20:38)
--- OUTSIDE RECORDS SUMMARY | 2020-11-05 20:43 | EXTERNAL MEDICAL SUMMARY RPT | Continuity of Care Document ---
:1955 Demographics Phone Unavailable Preferred Language Unknown Marital Status Unknown Congregational Affiliation Unknown Race Unknown Ethnic Group Unknown Author Organization [facility] Address [address] [id number] Phone Social History date description facility [phone]
[2020-11-05 21:10] LABS: B. PARAPERTUSSIS- RESP PCR PAN NOT DETECTED; B. PERTUSSIS- RESP PCR PANEL NOT DETECTED; C. PNEUMONIAE- RESP PCR PANEL NOT DETECTED; CORONAVIRUS 229E-RESP PCR NOT DETECTED; CORONAVIRUS HKU1-RESP PCR NOT DETECTED; CORONAVIRUS NL63-RESP PCR NOT DETECTED; CORONAVIRUS OC43-RESP PCR NOT DETECTED; HUMAN METAPNEUMOVIRUS NOT DETECTED; INFLUENZA A- RESP PCR PANEL NOT DETECTED; INFLUENZA B - RESP PCR PANEL NOT DETECTED; M. PNEUMONIAE- RESP PCR PANEL NOT DETECTED; PARAINFLUENZA VIRUS 1 NOT DETECTED; PARAINFLUENZA VIRUS 2 NOT DETECTED; PARAINFLUENZA VIRUS 3 NOT DETECTED; PARAINFLUENZA VIRUS 4 NOT DETECTED; RHINOVIRUS/ENTEROVIRUS NOT DETECTED; RSV- RESP PCR PANEL NOT DETECTED; SARS-CoV-2 -RESP PCR PANEL NOT DETECTED
[2020-11-05 21:30] LABS: BILIRUBIN,URINE NEGATIVE (NEGATIVE); GLUCOSE, URINE (UA) 100 mg/dL (NEGATIVE); KETONES,URINE (UA) NEGATIVE (NEGATIVE); LEUKOCYTE ESTERASE, URINE NEGATIVE (NEGATIVE); NITRITE,URINE NEGATIVE (NEGATIVE); OCCULT BLOOD,URINE LARGE (NEGATIVE); PROTEIN,URINE >=300 mg/dL (NEGATIVE); UROBILINOGEN,URINE 1 (NORMAL) E.U./dL (NORMAL)
[2020-11-05 21:32] LABS: CLARITY,URINE HAZY (CLEAR)
[2020-11-05 21:33] LABS: LACTIC ACID, VENOUS 2.9 mmol/L (0.5-2.2)
[2020-11-05 21:40] LABS: AMORPHOUS SEDIMENT,UR Moderate /LPF; BACTERIA,URINE Rare /HPF (None Seen); CASTS, URINE 3-5 Hyaline Casts /LPF; SQUAMOUS EPITHELIAL CELL,UR FEW Squamous (<= Few); WBC,URINE 0-3 /HPF (0-3)
[2020-11-05 21:42] LABS: CALCIUM 8.2 mg/dL (8.5-10.3); CREATININE 1.7 mg/dL (0.6-1.2); POTASSIUM 4.6 mmol/L (3.5-5.0)
[2020-11-05] MEDS: INSULIN GLARGINE 300 UNIT/3 ML PEN SUBQ SCH (22:12)
[2020-11-05] MEDS: INSULIN ASPART 300 UNIT/3 ML PEN SUBQ SCH (22:12)
[2020-11-05] MEDS: LACTATED RINGERS 1,000 ML IV SCH (22:15)
[2020-11-05 22:44] LABS: ABG PCO2 41 mmHg (34-45); ABG PH 7.33 (7.35-7.45); ABG PO2 66 mmHg (80-100)
[2020-11-05 22:45] LABS: ABG BASE EXCESS -4.7 mmol/L (-2.0-3.0); ABG HCO3 20.9 mmol/L (22.0-26.0); ABG OXYGEN SATURATION 91 % (94-98); ABG TCO2 22.2 MMOL/L (21.0-29.0); ALLEN TEST POSITIVE
[2020-11-06 05:00] LABS: BASOPHILS % (AUTO) 1.2 %; EOSINOPHILS % (AUTO) 0.4 %; HCT - HEMATOCRIT 42.1 % (42.0-52.0); HGB - HEMOGLOBIN 13.1 g/dL (14.0-18.0); LYMPHOCYTES % (AUTO) 35.5 %; MEAN CORPUSCULAR HEMOGLOBIN 29.9 pg (27.0-31.0); MEAN CORPUSCULAR HGB CONC 31.1 g/dL (32.0-36.0); MEAN CORPUSCULAR VOLUME 96.1 fL (80.0-94.0); MEAN PLATELET VOLUME 11.9 fL (7.4-11.4); MONOCYTES % (AUTO) 10.8 %; NEUTROPHILS % (AUTO) 51.3 %; PLT - PLATELET COUNT 108 10^3/uL (130-450); RED BLOOD COUNT 4.38 10^6/uL (4.70-6.10); RED CELL DISTRIBUTION WIDTH 15.6 % (12.0-15.0); WHITE BLOOD COUNT 2.6 x10^3/uL (4.8-10.8)
[2020-11-06 05:02] LABS: ABNORMAL LYMPHS % (MANUAL) 0 %
[2020-11-06] MEDS: SODIUM CHLORIDE FLUSH 0.9% 10 ML SYRINGE IVP SCH ×3 (05:06→16:58)
[2020-11-06 05:10] LABS: CREATININE 1.5 mg/dL (0.6-1.2); MAGNESIUM 2.1 mg/dL (1.7-2.8); PHOSPHORUS 3.5 mg/dL (2.5-4.6); POTASSIUM 4.2 mmol/L (3.5-5.0)
[2020-11-06 05:19] LABS: BAND NEUTROPHILS % (MANUAL) 3 %; BASOPHILS # (MANUAL) 0.1 10^3/uL (0-0.1); BASOPHILS % (MANUAL) 2 %; DIFFERENTIAL COMMENT MANUAL DIFFERENTIAL; LYMPHOCYTES # (MANUAL) 0.7 10^3/uL (1.5-3.5); LYMPHOCYTES % (MANUAL) 26 %; MONOCYTES # (MANUAL) 0.1 10^3/uL (0.0-1.0); NEUTROPHILS # (MANUAL) 1.8 10^3/uL (1.5-6.6); PLATELET ESTIMATE, MANUAL DECREASED (<130,000) (NORMAL); PLATELET MORPHOLOGY NORMAL APPEARANCE (NORMAL); RBC MORPHOLOGY (MULTIPLE) NORMAL APPEARANCE (NORMAL); WBC MORPHOLOGY (MULTIPLE) NORMAL APPEARANCE (NORMAL)
[2020-11-06] MEDS: AZTREONAM 2 GM in SODIUM CHLORIDE 0.9% MINIBAG 100 ML IV SCH ×3 (07:35→23:18)
[2020-11-06] MEDS: INSULIN ASPART 300 UNIT/3 ML PEN SUBQ SCH ×4 (08:00→20:32)
--- NOTE | 2020-11-06 08:24 | PROVIDER PROGRESS NOTE ---
Assessment/Plan - Problem List (1) Severe sepsis Assessment/Plan: Resolved with stable BP, normal Lactic Acid level and improving SARA Etiology is still unclear. Continue empiric antibiotics and iv hydration. Await for negative blood cultures at the 48-hour del. We will recheck a chest x-ray now that he has been rehydrated (2) Leukopenia Assessment/Plan: This is concerning for a fulminant infection versus hematologic problem vs Covid. Will repeat chest x-ray today. Await blood cultures, assure they are negative at 48 hours. If he has a fever again will panculture. Will consider repeating his Covid respiratory panel or do a swab. (3) Syncope Assessment/Plan: The description of his presentation was that he had syncope as he was walking, collapsed onto his significant other who helped him to set so that he had no tr auma. He has had syncope from severe volume depletion about 3 years ago admitted here. Continue with telemetry. Continue with IV fluids. We will order an Echo. We will obtain a head CT to assure there is no hemorrhage since he is on Coumadin>>> no bleed, old strokes were seen. Continue neurochecks. (4) Metabolic encephalopathy Assessment/Plan: He does have some slurred speech and difficulty gathering his thoughts when he is tired, which is his baseline. We suspect his encephalopathy related to dehydration as well as possible sepsis. Will obtain a CT of the head since he was more confused and he is on Coumadin, to rule out hemorrhage>> no hemorrhage seen, old strokes seen. We recheck LFTs with ammonia level. Check TSH and B12. We will continue with IV hydration and antibiotics as mentioned above. Continue neurochecks. (5) Elevated LFTs Assessment/Plan: Etiology unclear. His CT of the abdomen was benign. No alcohol abuse history We will follow LFTs intermittently. (6) Acute kidney injury superimposed on CKD Assessment/Plan: Creatinine is improving with IV hydration. We will continue hydration today but stop iv fluids tomorrow, because of his underlying cardiomyopathy, however we will not reorder his torsemide and spironolactone yet tomorrow. Hold his ARB until creatinine is closer to his baseline Avoid nephrotoxins. Follow BMP daily. (7) Cardiomyopathy, ischemic Assessment/Plan: He has a known history of ischemic cardiomyopathy. Per our last echocardiogram, his ejection fraction was 45 to 50% (?improved since first Dx). He has an AICD in place. His BNP is elevated 1100s we are not have a baseline. His x-ray does not appear to suggest pulmonary vascular congestion, likely due to marked volume depletion. Continue iv hydration today. We will monitor his respiratory status closely. Continue to hold his home diuretics including torsemide and spironolactone. Continues beta-noemi. Hold his ARB until creatinine is closer to his baseline He cannot get an MRI because he has an AICD. (8) Coronary artery disease Assessment/Plan: He has a known history of coronary artery disease and ischemic cardiomyopathy. His troponin is elevated in the 100s but suspect this is likely demand ischemia. His EKG does show IVCD but no obvious changes by EKG of ischemia. Continue his home aspirin and statin. Continue on telemetry. (9) Insulin dependent type 2 diabetes mellitus Assessment/Plan: His blood glucose was elevated greater than 200. His A1c returned at 7.7 indicating fairly good control We resumed his home dose of Lantus but at half his usual dose, given he will not be taking much p.o. for the time being. Will advance diet as tolerated, with each meal. We placed him on sliding scale Insulin. (10) History of CVA with residual deficit Assessment/Plan: He has a history of prior stroke and is on Coumadin and aspirin. He has residual left-sided deficits and dysarthria. We will continue his home medications. Follow INR daily. (11) Lactic acidosis Assessment/Plan: Resolved with iv hydration and empiric antibx - Current Meds Current Meds: Current Medications Generic Name Dose Route Start Last Admin Trade Name Ilya PRN Reason Stop Dose Admin Lactated Ringer's 1,000 mls @ 100 mls/hr 11/05/20 21:00 11/06/20 07:35 Lr IV Infused .Q10H MARCELLUS Infusion Aztreonam 2 gm/ Sodium 100 mls @ 100 mls/hr 11/06/20 08:00 11/06/20 07:35 Chloride IV 100 mls/hr Q8H MARCELLUS Administration Insulin Aspart 1 - 9 unit 11/05/20 21:00 11/05/20 22:12 Insulin Aspart 300 Unit/3 Ml Pen SUBQ 1 unit 0800,1200,1700,2100 MARCELLUS Administration Protocol Insulin Glargine 25 unit 11/05/20 21:00 11/05/20 22:12 Insulin Glargine 300 Unit/3 Ml Pen SUBQ 25 unit QPM MARCELLUS Administration Sodium Chloride 10 ml 11/06/20 01:00 11/06/20 05:06 Sodium Chloride Flush 0.9% 10 Ml Syringe IVP Not Given 0100,0900,1700 MARCELLUS - Lab Result Fish Bone Diagrams: 11/06/20 04:37 11/06/20 04:37 Subjective - Subjective Patient Reports: Feeling Better, Resting Comfortably Nursing Reports: Confused (Oriented to self and place, not time) Objective Vital Signs: Vital Signs - 24 hr 11/05/20 11/05/20 11/05/20 18:18 18:41 19:22 Temperature 38.1 C H Heart Rate 101 H 90 Heart Rate [ Monitoring electrodes] Respiratory 29 H 32 H 36 H Rate Blood Pressure 132/51 H 118/82 H Blood Pressure [Right Brachial artery] O2 Saturation 100 100 100 11/05/20 11/05/20 11/05/20 19:30 20:00 20:20 Temperature Heart Rate 94 95 Heart Rate [ Monitoring electrodes] Respiratory 26 H 22 Rate Blood Pressure 122/81 H Blood Pressure [Right Brachial artery] O2 Saturation 94 88 L 94 11/05/20 11/05/20 11/05/20 21:25 21:49 22:00 Temperature 37.8 C 37.1 C Heart Rate 93 Heart Rate [ 93 91 Monitoring electrodes] Respiratory 30 H 18 22 Rate Blood Pressure 115/83 H Blood Pressure 124/85 H 123/99 H [Right Brachial artery] O2 Saturation 99 99 99 11/05/20 11/05/20 11/06/20 22:51 23:00 00:00 Temperature Heart Rate Heart Rate [ 87 86 Monitoring electrodes] Respiratory 22 9 L 14 Rate Blood Pressure Blood Pressure 121/80 120/83 H [Right Brachial artery] O2 Saturation 99 97 98 11/06/20 11/06/20 11/06/20 01:00 02:00 03:00 Temperature 36.9 C Heart Rate Heart Rate [ 83 83 85 Monitoring electrodes] Respiratory 30 H 28 H 29 H Rate Blood Pressure Blood Pressure 119/82 H 123/78 134/83 H [Right Brachial artery] O2 Saturation 99 98 98 11/06/20 11/06/20 11/06/20 04:00 05:00 06:00 Temperature Heart Rate Heart Rate [ 83 84 87 Monitoring electrodes] Respiratory 31 H 25 H 21 Rate Blood Pressure Blood Pressure 126/82 H 130/84 H 115/69 [Right Brachial artery] O2 Saturation 99 95 96 11/06/20 07:00 Temperature Heart Rate Heart Rate [ 86 Monitoring electrodes] Respiratory 36 H Rate Blood Pressure Blood Pressure 120/83 H [Right Brachial artery] O2 Saturation 96 Oxygen O2 Source Room air I&O (Last 24 Hrs): Intake and Output Totals x24h 11/04/20 11/05/20 11/06/20 23:59 23:59 23:59 Intake Total 3095 1709 Output Total 0 300 Balance 3095 1409 General: Alert HEENT: Mucous membr. moist/pink Neck: Supple, No JVD Neuro: Other (Short abrupt speech with lag) Cardiovascular: Regular rate, No murmurs Respiratory: No respiratory distress, Breath sounds nml Abdomen: Normal bowel sounds, Soft, No tenderness Extremities: No clubbing, No edema - Results Results: Laboratory Results WBC 2.6 x10^3/uL (4.8-10.8) L 11/06/20 04:37 RBC 4.38 10^6/uL (4.70-6.10) L 11/06/20 04:37 Hgb 13.1 g/dL (14.0-18.0) L 11/06/20 04:37 Hct 42.1 % (42.0-52.0) 11/06/20 04:37 MCV 96.1 fL (80.0-94.0) H 11/06/20 04:37 MCH 29.9 pg (27.0-31.0) 11/06/20 04:37 MCHC 31.1 g/dL (32.0-36.0) L 11/06/20 04:37 RDW 15.6 % (12.0-15.0) H 11/06/20 04:37 Plt Count 108 10^3/uL (130-450) L 11/06/20 04:37 MPV 11.9 fL (7.4-11.4) H 11/06/20 04:37 Neut # (Auto) Not Reportable 11/06/20 04:37 Lymph # (Auto) Not Reportable 11/06/20 04:37 [place] # (Auto) Not Reportable 11/06/20 04:37 Eos # (Auto) Not Reportable 11/06/20 04:37 Baso # (Auto) Not Reportable 11/06/20 04:37 Absolute Nucleated RBC Not Reportable 11/06/20 04:37 Total Counted 100 11/06/20 04:37 Band Neuts % (Manual) 3 % (0-10) 11/06/20 04:37 Abnorm Lymph % (Manual) 0 % 11/06/20 04:37 Nucleated RBC % Not Reportable 11/06/20 04:37 Neutrophils # (Manual) 1.8 10^3/uL (1.5-6.6) 11/06/20 04:37 Lymphocytes # (Manual) 0.7 10^3/uL (1.5-3.5) L 11/06/20 04:37 Monocytes # (Manual) 0.1 10^3/uL (0.0-1.0) 11/06/20 04:37 Eosinophils # (Manual) 0.0 10^3/uL (0-0.7) 11/06/20 04:37 Basophils # (Manual) 0.1 10^3/uL (0-0.1) 11/06/20 04:37 Differential Comment MANUAL DIFFERENTIAL 11/06/20 04:37 WBC Morphology NORMAL APPEARANCE (NORMAL) 11/06/20 04:37 Platelet Estimate DECREASED (<130,000) (NORMAL) 11/06/20 04:37 Platelet Morphology NORMAL APPEARANCE (NORMAL) 11/06/20 04:37 RBC Morph Micro Appear NORMAL APPEARANCE (NORMAL) 11/06/20 04:37 PT 20.3 secs (9.9-12.6) H 11/05/20 18:30 INR 1.9 (0.8-1.2) H 11/05/20 18:30 Bld Gas Analysis Time 2 11/05/20 22:35 Sample Site RIGHT RADIAL 11/05/20 22:35 ABG pH 7.33 (7.35-7.45) L 11/05/20 22:35 ABG pCO2 41 mmHg (34-45) 11/05/20 22:35 ABG pO2 66 mmHg (80-100) L 11/05/20 22:35 ABG HCO3 20.9 mmol/L (22.0-26.0) L 11/05/20 22:35 ABG Total CO2 22.2 MMOL/L (21.0-29.0) 11/05/20 22:35 ABG O2 Saturation 91 % (94-98) L 11/05/20 22:35 ABG Base Excess -4.7 mmol/L (-2.0-3.0) L 11/05/20 22:35 Shankar Test POSITIVE 11/05/20 22:35 VBG pH 7.176 (7.31-7.41) L 11/05/20 18:30 VBG pCO2 59.3 mmHg (41-51) H 11/05/20 18:30 VBG pO2 21.7 mmHg (25-47) L 11/05/20 18:30 VBG HCO3 21.4 mmol/L (23-28) L 11/05/20 18:30 VBG Total CO2 23.3 mmol/L (24-29) L 11/05/20 18:30 VBG O2 Saturation 24.7 % (60-80) L 11/05/20 18:30 VBG Base Excess -7.8 mmol/L (-2 - +2) L 11/05/20 18:30 Room Air YES 11/05/20 22:35 Sodium 134 mmol/L (135-145) L 11/06/20 04:37 Potassium 4.2 mmol/L (3.5-5.0) 11/06/20 04:37 Chloride 103 mmol/L (101-111) 11/06/20 04:37 Carbon Dioxide 23 mmol/L (21-32) 11/06/20 04:37 Anion Gap 8.0 (6-13) 11/06/20 04:37 BUN 36 mg/dL (6-20) H 11/06/20 04:37 Creatinine 1.5 mg/dL (0.6-1.2) H 11/06/20 04:37 Estimated GFR (MDRD) 47 (>89) L 11/06/20 04:37 Glucose 103 mg/dL (70-100) H 11/06/20 04:37 Lactic Acid 1.4 mmol/L (0.5-2.2) 11/05/20 23:49 Calcium 8.0 mg/dL (8.5-10.3) L 11/06/20 04:37 Phosphorus 3.5 mg/dL (2.5-4.6) 11/06/20 04:37 Magnesium 2.1 mg/dL (1.7-2.8) 11/06/20 04:37 Total Bilirubin 1.9 mg/dL (0.2-1.0) H 11/05/20 18:30 AST 99 IU/L (10-42) H 11/05/20 18:30 ALT 67 IU/L (10-60) H 11/05/20 18:30 Alkaline Phosphatase 155 IU/L (42-121) H 11/05/20 18:30 Troponin I High Sens 141.3 ng/L (2.3-19.7) H* 11/05/20 21:22 C-Reactive Protein 2.4 mg/dL (0-1.0) H 11/06/20 04:37 B-Natriuretic Peptide 1138 pg/mL (5-100) H 11/05/20 18:30 Total Protein 7.9 g/dL (6.7-8.2) 11/05/20 18:30 Albumin 4.0 g/dL (3.2-5.5) 11/05/20 18:30 Globulin 3.9 g/dL (2.1-4.2) 11/05/20 18:30 Albumin/Globulin Ratio 1.0 (1.0-2.2) 11/05/20 18:30 Lipase 50 U/L (22-51) 11/05/20 18:30 Urine Color YELLOW 11/05/20 21:15 Urine Clarity HAZY (CLEAR) 11/05/20 21:15 Urine pH 5.0 PH (5.0-7.5) 11/05/20 21:15 Ur Specific [place] >=1.030 (1.002-1.030) H 11/05/20 21:15 Urine Protein >=300 mg/dL (NEGATIVE) H 11/05/20 21:15 Urine Glucose (UA) 100 mg/dL (NEGATIVE) H 11/05/20 21:15 Urine Ketones NEGATIVE mg/dL (NEGATIVE) 11/05/20 21:15 Urine Occult Blood LARGE (NEGATIVE) H 11/05/20 21:15 Urine Nitrite NEGATIVE (NEGATIVE) 11/05/20 21:15 Urine Bilirubin NEGATIVE (NEGATIVE) 11/05/20 21:15 Urine Urobilinogen 1 (NORMAL) E.U./dL (NORMAL) 11/05/20 21:15 Ur Leukocyte Esterase NEGATIVE (NEGATIVE) 11/05/20 21:15 Urine RBC 11-25 /HPF (0-5) H 11/05/20 21:15 Urine WBC 0-3 /HPF (0-3) 11/05/20 21:15 Ur Squamous Epith Cells FEW Squamous (<= Few) 11/05/20 21:15 Amorphous Sediment Moderate /LPF 11/05/20 21:15 Urine Bacteria Rare /HPF (None Seen) 11/05/20 21:15 Urine Casts 3-5 Hyaline Casts /LPF 11/05/20 21:15 Ur Microscopic Review INDICATED 11/05/20 21:15 Urine Culture Comments NOT INDICATED 11/05/20 21:15 Nasal Adenovirus (PCR) NOT DETECTED 11/05/20 20:03 Nasal B. parapertussis DNA (PCR) NOT DETECTED 11/05/20 20:03 Nasal Coronavir 229E PCR NOT DETECTED 11/05/20 20:03 Nasal Coronavir HKU1 PCR NOT DETECTED 11/05/20 20:03 Nasal Coronavir NL63 PCR NOT DETECTED 11/05/20 20:03 Nasal Coronavir OC43 PCR NOT DETECTED 11/05/20 20:03 Nasal Enterovir/Rhinovir PCR NOT DETECTED 11/05/20 20:03 Nasal Influenza B PCR NOT DETECTED 11/05/20 20:03 Nasal Influenza A PCR NOT DETECTED 11/05/20 20:03 Nasal Parainfluen 1 PCR NOT DETECTED 11/05/20 20:03 Nasal Parainfluen 2 PCR NOT DETECTED 11/05/20 20:03 Nasal Parainfluen 3 PCR NOT DETECTED 11/05/20 20:03 Nasal Parainfluen 4 PCR NOT DETECTED 11/05/20 20:03 Nasal RSV (PCR) NOT DETECTED 11/05/20 20:03 Nasal Screen MRSA (PCR) NEGATIVE (NEGATIVE) 11/05/20 21:50 Nasal B.pertussis DNA PCR NOT DETECTED 11/05/20 20:03 Nasal C.pneumoniae (PCR) NOT DETECTED 11/05/20 20:03 Zachery Human Metapneumo PCR NOT DETECTED 11/05/20 20:03 Nasal M.pneumoniae (PCR) NOT DETECTED 11/05/20 20:03 Nasal SARS-CoV-2 (PCR) NOT DETECTED 11/05/20 20:03 Ethyl Alcohol < 5.0 mg/dL 11/05/20 18:30 Sepsis Event Note (H) - Evaluation Current Stage of Sepsis: Severe sepsis Possible source of Sepsis: positive: Unknown - Sepsis Criteria Sepsis Criteria: Recorded Temperature greater than 38.3C or Less than 36C, Recorded Heart Rate greater than 90 bpm, Recorded Respiratory Rate greater than 20, WBC count greater than 12,000 or less than 4000, 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
[2020-11-06 08:34] LABS: ESTIMATED AVERAGE GLUCOSE 174 mg/dL (70-100); HEMOGLOBIN A1c% 7.7 % (4.27-6.07)
[2020-11-06] MEDS: LACTATED RINGERS 1,000 ML IV SCH ×2 (08:35→23:17)
--- NOTE | 2020-11-06 12:11 | PHARMACY PROGRESS NOTE ---
- Best Possible Medication History Admit Date and Time: 11/05/202019 Processed by: Pharmacy Medication History completed: Yes Patient Interview: Completed Secondary Source(s): Physician records, Pharmacy records, Insurance records (PATIENT AND PARTNER ABLE TO CONFIRM HOME MEDICATIONS) As the person ultimately responsible for medication therapy, providers are able to order a medication from an existing home medication list in [facility] via the "Reconcile Routine" prior to Confirmation of that medication by operations support professionals. Such practice is discouraged except when the physician, in their clinical judgment, deems that a medical need exists for a medication without regard to previous use.
[2020-11-06] MEDS: WARFARIN 1 MG TABLET PO SCH (14:00)
--- NOTE | 2020-11-06 15:44 | CT Report ---
PROCEDURE: HEAD WO INDICATIONS: Syncope TECHNIQUE: Noncontrast 4.5 mm thick angled axial sections acquired from the foramen magnum to the vertex. For r adiation dose reduction, the following was used: automated exposure control, adjustment of mA and/or kV according to patient size. COMPARISON: 08/04/2018, 07/03/2018, 02/26/2018 FINDINGS: Image quality: There is artifact associated with the metallic hardware. Motion artifact is noted. CSF spaces: Basal cisterns are patent. No extra-axial fluid collections. Ventricles are normal in size and shape. Brain: There is a remote right MCA territory infarction seen. A smaller left MCA territory infarction is also seen. These infarctions are stable compared to 2018. No midline shift. No intracranial masses or hemorrhage. Gomez-white matter interface is normal. Skull and face: Left lateral occipital craniectomy change can be seen. Calvarium and visualized faci al bones are intact, without suspicious lesions. Sinuses: Visualized sinuses and mastoids are clear. IMPRESSION: No significant intracranial abnormality is seen. Stable bilateral MCA infarctions, right worse than left. Prior left occipital craniectomy changes again seen. Reviewed by: Ferdinand Hargrove MD on 11/06/2020 2:43 PM AKDT Approved by: Ferdinand Hargrove MD on 11/06/2020 2:43 PM AKDT Station ID: [id number]
[2020-11-06] MEDS: ZINC OXIDE 20% OINT 30 GM TUBE TOP PRN ×3 (15:50→23:20)
--- NOTE | 2020-11-06 16:45 | XRAY Report ---
PROCEDURE: Chest 1 View X-Ray INDICATIONS: F/U sepsis, after hydration TECHNIQUE: One view of the chest was acquired. COMPARISON: 11/05/2020 FINDINGS: Surgical changes and devices: An ICD can be seen. The leads are seen in the expected positions. Lungs and pleura: On the semiupright images, no large pneumothorax or large pleural effusions can be seen. No focal infiltrates are seen. Low lung volumes can be seen, causing a crowded appearance to the lung markings. Mild interstitial prominence is seen, which is improved compared to the prior clare dy. Mediastinum: Mediastinal contours appear normal. Heart size is normal. Bones and chest wall: No suspicious bony lesions. Age-appropriate degenerative changes are seen. O verlying soft tissues appear unremarkable. IMPRESSION: Improved interstitial prominence. Low lung volumes. Postoperative and degenerative changes are seen. Reviewed by: Ferdinand Hargrove MD on 11/06/2020 3:43 PM AKDT Approved by: Ferdinand Hargrove MD on 11/06/2020 3:43 PM AKDT Station ID: [id number]
[2020-11-06] MEDS: VANCOMYCIN INJ 1 GM, VANCOMYCIN INJ 500 MG in SODIUM CHLORIDE 0.9% 500 ML IV SCH (18:10)
[2020-11-06] MEDS: INSULIN GLARGINE 300 UNIT/3 ML PEN SUBQ SCH (20:31)
[2020-11-07] MEDS: SODIUM CHLORIDE FLUSH 0.9% 10 ML SYRINGE IVP SCH ×4 (04:49→23:59)
[2020-11-07 05:02] LABS: BASOPHILS % (AUTO) 0.8 %; EOSINOPHILS % (AUTO) 1.1 %; HCT - HEMATOCRIT 41.5 % (42.0-52.0); HGB - HEMOGLOBIN 13.2 g/dL (14.0-18.0); LYMPHOCYTES # (AUTO) 1.1 10^3/uL (1.5-3.5); LYMPHOCYTES % (AUTO) 28.7 %; MEAN CORPUSCULAR HEMOGLOBIN 30.1 pg (27.0-31.0); MEAN CORPUSCULAR HGB CONC 31.8 g/dL (32.0-36.0); MEAN CORPUSCULAR VOLUME 94.5 fL (80.0-94.0); MEAN PLATELET VOLUME 12.1 fL (7.4-11.4); MONOCYTES # (AUTO) 0.3 10^3/uL (0.0-1.0); MONOCYTES % (AUTO) 7.9 %; NEUTROPHILS # (AUTO) 2.3 10^3/uL (1.5-6.6); NEUTROPHILS % (AUTO) 61.2 %; PLT - PLATELET COUNT 119 10^3/uL (130-450); RED BLOOD COUNT 4.39 10^6/uL (4.70-6.10); RED CELL DISTRIBUTION WIDTH 15.6 % (12.0-15.0); WHITE BLOOD COUNT 3.8 x10^3/uL (4.8-10.8)
[2020-11-07] MEDS: ZINC OXIDE 20% OINT 30 GM TUBE TOP PRN (05:02)
[2020-11-07 05:07] LABS: INR 2.7 (0.8-1.2); PT - PROTHROMBIN TIME 28.6 secs (9.9-12.6)
[2020-11-07 05:20] LABS: ALBUMIN 2.9 g/dL (3.2-5.5); BILIRUBIN,DIRECT 0.4 mg/dL (0.1-0.5); BILIRUBIN,TOTAL 1.1 mg/dL (0.2-1.0); CALCIUM 8.5 mg/dL (8.5-10.3); CREATININE 1.3 mg/dL (0.6-1.2); MAGNESIUM 1.9 mg/dL (1.7-2.8); PHOSPHORUS 2.1 mg/dL (2.5-4.6); POTASSIUM 4.1 mmol/L (3.5-5.0); TOTAL PROTEIN 6.1 g/dL (6.7-8.2)
[2020-11-07 05:32] LABS: THYROID STIMULATING HORMONE 2.12 uIU/mL (0.34-5.60)
[2020-11-07] MEDS: LACTATED RINGERS 1,000 ML IV SCH ×3 (05:39→21:15)
[2020-11-07] MEDS: NEUTRA-PHOS 250 MG TABLET PO SCH ×2 (06:21→08:23)
[2020-11-07] MEDS: AZTREONAM 2 GM in SODIUM CHLORIDE 0.9% MINIBAG 100 ML IV SCH ×3 (08:22→23:54)
[2020-11-07] MEDS: INSULIN ASPART 300 UNIT/3 ML PEN SUBQ SCH ×4 (08:23→21:22)
--- NOTE | 2020-11-07 14:12 | PROVIDER PROGRESS NOTE ---
Assessment/Plan - Problem List (1) Severe sepsis Assessment/Plan: Resolving. An alternative explanation for the elevated lactic acid is severe dehydration however that would not give him a fever or leukopenia No infectious source located. No more fever. White blood count is normalizing (upward). Awaiting blood cultures final results before stopping empiric iv antibx Will move patient out of ICU (2) Leukopenia Assessment/Plan: This is concerning for a fulminant infection versus hematologic problem vs Covid. Will repeat chest x-ray today. Await blood cultures, assure they are negative at 48 hours. If he has a fever again will panculture. Will consider repeating his Covid respiratory panel or do a swab. (3) Syncope Assessment/Plan: The description of his presentation was that he had syncope as he was walking, collapsed onto his significant other who helped him to set so that he had no trauma. He has had syncope from severe volume depletion about 3 years ago admitted here. Continue with telemetry. Continue with IV fluids. Awaiting Echo result We will obtain a head CT to assure there is no hemorrhage since he is on Coumadin>>> no bleed, old strokes were seen. Continue neurochecks. (4) Metabolic encephalopathy Assessment/Plan: He does have some slurred or hesitant speech and difficulty gathering his thoughts when he is tired, which is his baseline. We suspect his encephalopathy related to dehydration as well as possible sepsis. Will obtain a CT of the head since he was more confused and he is on Coumadin, to rule out hemorrhage>> no hemorrhage seen, old strokes seen. We recheck LFTs with ammonia level. Check TSH and B12. We will continue with IV hydration and antibiotics as mentioned above. Continue neurochecks. (5) Elevated LFTs Assessment/Plan: Etiology unclear. His CT of the abdomen was benign. No alcohol abuse history We will follow LFTs intermittently. (6) Acute kidney injury superimposed on CKD Assessment/Plan: Creatinine is improving with IV hydration. We will continue hydration today but stop iv fluids tomorrow, because of his underlying cardiomyopathy, however we will not reorder his torsemide and spironolactone yet Hold his ARB until creatinine is closer to his baseline Avoid nephrotoxins. Follow BMP daily. (7) Cardiomyopathy, ischemic Assessment/Plan: He has a known history of ischemic cardiomyopathy. Per our last echocardiogram, his ejection fraction was 45 to 50% (?improved since first Dx). He has an AICD in place. His BNP is elevated 1100s we are not have a baseline. His x-ray does not appear to suggest pulmonary vascular congestion, likely due to marked volume depletion. Continue iv hydration today. We will monitor his respiratory status closely. Continue to hold his home diuretics including torsemide and spironolactone for another day. Continue beta-noemi. Hold his ARB until creatinine is closer to his baseline He cannot get an MRI because he has an AICD. (8) Coronary artery disease Assessment/Plan: He has a known history of coronary artery disease and ischemic cardiomyopathy. His troponin is elevated in the 100s but suspect this is likely demand ischemia. His EKG did show IVCD but no obvious changes by EKG of ischemia. Continue his home aspirin and statin. Continue on telemetry. Will transfer out of ICU (9) Insulin dependent type 2 diabetes mellitus Assessment/Plan: His blood glucose was elevated greater than 200. His A1c returned at 7.7 indicating fairly good control We resumed his home dose of Lantus but at half his usual dose, given he will not be taking much p.o. for the time being. Will advance diet as tolerated, with each meal. We placed him on sliding scale Insulin. (10) History of CVA with residual deficit Assessment/Plan: He has a history of prior stroke and is on Coumadin and aspirin. He has residual left-sided deficits and dysarthria. We will continue his home medications. Follow INR daily. Goal INR is 2-3. (11) Lactic acidosis Assessment/Plan: Resolved - Current Meds Current Meds: Current Medications Generic Name Dose Route Start Last Admin Trade Name Ilya PRN Reason Stop Dose Admin Lactated Ringer's 1,000 mls @ 100 mls/hr 11/05/20 21:00 11/07/20 13:00 Lr IV 100 mls/hr .Q10H [facility] Infusion Aztreonam 2 gm/ Sodium 100 mls @ 100 mls/hr 11/06/20 08:00 11/07/20 09:22 Chloride IV Infused Q8H [facility] Infusion Vancomycin HCl 1 gm/ 500 mls @ 250 mls/hr 11/06/20 18:00 11/06/20 21:16 Vancomycin HCl 500 mg/ Sodium IV Infused Chloride Q24H [facility] Infusion Insulin Aspart 1 - 9 unit 11/05/20 21:00 11/07/20 11:27 Insulin Aspart 300 Unit/3 Ml Pen SUBQ Not Given 0800,1200,1700,2100 [facility] Protocol Insulin Glargine 25 unit 11/05/20 21:00 11/06/20 20:31 Insulin Glargine 300 Unit/3 Ml Pen SUBQ 25 unit QPM [facility] Administration Multi-Ingredient Ointment 1 applic 11/06/20 15:18 11/07/20 05:02 Zinc Oxide 20% Oint 30 Gm Tube TOP 1 applic PRN PRN Administration Skin Care Sodium Chloride 10 ml 11/05/20 20:20 11/06/20 19:25 Sodium Chloride Flush 0.9% 10 Ml Syringe IVP 10 ml PRN PRN Administration NEEDED PER PROVIDER ORDERS Sodium Chloride 10 ml 11/06/20 01:00 11/07/20 08:24 Sodium Chloride Flush 0.9% 10 Ml Syringe IVP Not Given 0100,0900,1700 [facility] Warfarin Sodium 4 mg 11/06/20 14:00 11/06/20 14:00 Warfarin 1 Mg Tablet PO 4 mg QDWARFARIN [facility] Administration - Lab Result Fish Bone Diagrams: 11/07/20 04:39 11/07/20 04:39 - Additional Planning My Orders: My Active Orders 11/06/20 15:18 Zinc Oxide 20% Oint [Zinc Oxide] 1 applic TOP PRN PRN 11/06/20 Dinner DIET [Soft (Low Fiber) Diet] [DIET] 11/07/20 Evaluate and Treat OT [OT] Routine Evaluate and Treat PT [PT] Routine 11/07/20 14:10 Transfer [Admit \ Transfer \ Status] [RC] .ONCE 11/07/20 14:11 Telemetry- [RC] Q4HR Subjective - Subjective Patient Reports: Resting Comfortably, No Complaints Objective Vital Signs: Vital Signs - 24 hr 11/06/20 11/06/20 11/06/20 15:00 18:00 19:15 Temperature 99.3 C H 36.8 C Heart Rate [ Activity] Heart Rate [ 94 96 103 H Monitoring electrodes] Heart Rate [ Sitting] Respiratory 25 H 25 H 16 Rate Blood Pressure [Activity] Blood Pressure 111/63 130/81 H 142/95 H [Right Brachial artery] Blood Pressure [Sitting] O2 Saturation 94 93 95 O2 Saturation [ Sitting] 11/06/20 11/06/20 11/06/20 20:00 22:36 23:22 Temperature 36.9 C Heart Rate [ Activity] Heart Rate [ 97 97 Monitoring electrodes] Heart Rate [ Sitting] Respiratory 36 H 36 H Rate Blood Pressure [Activity] Blood Pressure 140/94 H 140/94 H [Right Brachial artery] Blood Pressure [Sitting] O2 Saturation 94 94 O2 Saturation [ Sitting] 11/07/20 11/07/20 11/07/20 00:00 02:00 04:00 Temperature Heart Rate [ Activity] Heart Rate [ 97 93 94 Monitoring electrodes] Heart Rate [ Sitting] Respiratory 29 H 41 H 27 H Rate Blood Pressure [Activity] Blood Pressure 117/70 124/87 H 114/77 [Right Brachial artery] Blood Pressure [Sitting] O2 Saturation 94 95 95 O2 Saturation [ Sitting] 11/07/20 11/07/20 11/07/20 04:49 06:00 09:00 Temperature 37 C 37 C Heart Rate [ Activity] Heart Rate [ 94 91 Monitoring electrodes] Heart Rate [ Sitting] Respiratory 38 H 24 Rate Blood Pressure [Activity] Blood Pressure 126/97 H 129/96 H [Right Brachial artery] Blood Pressure [Sitting] O2 Saturation 95 95 O2 Saturation [ Sitting] 11/07/20 11/07/20 11/07/20 10:52 11:05 12:40 Temperature Heart Rate [ 104 H Activity] Heart Rate [ 92 Monitoring electrodes] Heart Rate [ 93 94 Sitting] Respiratory 20 Rate Blood Pressure 137/78 H [Activity] Blood Pressure 140/98 H [Right Brachial artery] Blood Pressure 140/98 H 137/92 H [Sitting] O2 Saturation 95 O2 Saturation [ 95 Sitting] Oxygen O2 Source Room air I&O (Last 24 Hrs): Intake and Output Totals x24h 11/05/20 11/06/20 11/07/20 23:59 23:59 23:59 Intake Total 3095 5180.667 1905.000 Output Total 0 300 0 Balance 3095 4880.667 1905.000 General: Alert HEENT: Mucous membr. moist/pink Neck: Supple, No JVD Neuro: Alert, Disoriented Cardiovascular: Regular rate, No murmurs Respiratory: No respiratory distress, Breath sounds nml Abdomen: Soft Extremities: No edema - Results Results: Laboratory Results WBC 3.8 x10^3/uL (4.8-10.8) L 11/07/20 04:39 RBC 4.39 10^6/uL (4.70-6.10) L 11/07/20 04:39 Hgb 13.2 g/dL (14.0-18.0) L 11/07/20 04:39 Hct 41.5 % (42.0-52.0) L 11/07/20 04:39 MCV 94.5 fL (80.0-94.0) H 11/07/20 04:39 MCH 30.1 pg (27.0-31.0) 11/07/20 04:39 MCHC 31.8 g/dL (32.0-36.0) L 11/07/20 04:39 RDW 15.6 % (12.0-15.0) H 11/07/20 04:39 Plt Count 119 10^3/uL (130-450) L 11/07/20 04:39 MPV 12.1 fL (7.4-11.4) H 11/07/20 04:39 Neut # (Auto) 2.3 10^3/uL (1.5-6.6) 11/07/20 04:39 Lymph # (Auto) 1.1 10^3/uL (1.5-3.5) L 11/07/20 04:39 Jay # (Auto) 0.3 10^3/uL (0.0-1.0) 11/07/20 04:39 Eos # (Auto) 0.0 10^3/uL (0.0-0.7) 11/07/20 04:39 Baso # (Auto) 0.0 10^3/uL (0.0-0.1) 11/07/20 04:39 Absolute Nucleated RBC 0.00 x10^3/uL 11/07/20 04:39 Total Counted 100 11/06/20 04:37 Band Neuts % (Manual) 3 % (0-10) 11/06/20 04:37 Abnorm Lymph % (Manual) 0 % 11/06/20 04:37 Nucleated RBC % 0.0 /100WBC 11/07/20 04:39 Neutrophils # (Manual) 1.8 10^3/uL (1.5-6.6) 11/06/20 04:37 Lymphocytes # (Manual) 0.7 10^3/uL (1.5-3.5) L 11/06/20 04:37 Monocytes # (Manual) 0.1 10^3/uL (0.0-1.0) 11/06/20 04:37 Eosinophils # (Manual) 0.0 10^3/uL (0-0.7) 11/06/20 04:37 Basophils # (Manual) 0.1 10^3/uL (0-0.1) 11/06/20 04:37 Differential Comment MANUAL DIFFERENTIAL 11/06/20 04:37 WBC Morphology NORMAL APPEARANCE (NORMAL) 11/06/20 04:37 Platelet Estimate DECREASED (<130,000) (NORMAL) 11/06/20 04:37 Platelet Morphology NORMAL APPEARANCE (NORMAL) 11/06/20 04:37 RBC Morph Micro Appear NORMAL APPEARANCE (NORMAL) 11/06/20 04:37 PT 28.6 secs (9.9-12.6) H 11/07/20 04:39 INR 2.7 (0.8-1.2) H 11/07/20 04:39 Whole Blood INR 1.9 (0.8-1.2) H 11/06/20 09:14 Bld Gas Analysis Time 2242 11/05/20 22:35 Sample Site RIGHT RADIAL 11/05/20 22:35 ABG pH 7.33 (7.35-7.45) L 11/05/20 22:35 ABG pCO2 41 mmHg (34-45) 11/05/20 22:35 ABG pO2 66 mmHg (80-100) L 11/05/20 22:35 ABG HCO3 20.9 mmol/L (22.0-26.0) L 11/05/20 22:35 ABG Total CO2 22.2 MMOL/L (21.0-29.0) 11/05/20 22:35 ABG O2 Saturation 91 % (94-98) L 11/05/20 22:35 ABG Base Excess -4.7 mmol/L (-2.0-3.0) L 11/05/20 22:35 Shankar Test POSITIVE 11/05/20 22:35 VBG pH 7.176 (7.31-7.41) L 11/05/20 18:30 VBG pCO2 59.3 mmHg (41-51) H 11/05/20 18:30 VBG pO2 21.7 mmHg (25-47) L 11/05/20 18:30 VBG HCO3 21.4 mmol/L (23-28) L 11/05/20 18:30 VBG Total CO2 23.3 mmol/L (24-29) L 11/05/20 18:30 VBG O2 Saturation 24.7 % (60-80) L 11/05/20 18:30 VBG Base Excess -7.8 mmol/L (-2 - +2) L 11/05/20 18:30 Room Air YES 11/05/20 22:35 Sodium 136 mmol/L (135-145) 11/07/20 04:39 Potassium 4.1 mmol/L (3.5-5.0) 11/07/20 04:39 Chloride 103 mmol/L (101-111) 11/07/20 04:39 Carbon Dioxide 21 mmol/L (21-32) 11/07/20 04:39 Anion Gap 12.0 (6-13) 11/07/20 04:39 BUN 30 mg/dL (6-20) H 11/07/20 04:39 Creatinine 1.3 mg/dL (0.6-1.2) H 11/07/20 04:39 Estimated GFR (MDRD) 56 (>89) L 11/07/20 04:39 Glucose 137 mg/dL (70-100) H 11/07/20 04:39 Estimat Average Glucose 174 mg/dL (70-100) H 11/06/20 04:37 Hemoglobin A1c % 7.7 % (4.27-6.07) H 11/06/20 04:37 Lactic Acid 1.4 mmol/L (0.5-2.2) 11/05/20 23:49 Calcium 8.5 mg/dL (8.5-10.3) 11/07/20 04:39 Phosphorus 2.1 mg/dL (2.5-4.6) L 11/07/20 04:39 Magnesium 1.9 mg/dL (1.7-2.8) 11/07/20 04:39 Total Bilirubin 1.1 mg/dL (0.2-1.0) H 11/07/20 04:39 Direct Bilirubin 0.4 mg/dL (0.1-0.5) 11/07/20 04:39 AST 83 IU/L (10-42) H 11/07/20 04:39 ALT 76 IU/L (10-60) H 11/07/20 04:39 Alkaline Phosphatase 158 IU/L (42-121) H 11/07/20 04:39 Troponin I High Sens 141.3 ng/L (2.3-19.7) H* 11/05/20 21:22 C-Reactive Protein 2.4 mg/dL (0-1.0) H 11/06/20 04:37 B-Natriuretic Peptide 1138 pg/mL (5-100) H 11/05/20 18:30 Total Protein 6.1 g/dL (6.7-8.2) L 11/07/20 04:39 Albumin 2.9 g/dL (3.2-5.5) L 11/07/20 04:39 Globulin 3.2 g/dL (2.1-4.2) 11/07/20 04:39 Albumin/Globulin Ratio 1.0 (1.0-2.2) 11/05/20 18:30 Lipase 50 U/L (22-51) 11/05/20 18:30 Vitamin B12 700 pg/mL (180-914) 11/07/20 04:39 TSH 2.12 uIU/mL (0.34-5.60) 11/07/20 04:39 Urine Color YELLOW 11/05/20 21:15 Urine Clarity HAZY (CLEAR) 11/05/20 21:15 Urine pH 5.0 PH (5.0-7.5) 11/05/20 21:15 Ur Specific [place] >=1.030 (1.002-1.030) H 11/05/20 21:15 Urine Protein >=300 mg/dL (NEGATIVE) H 11/05/20 21:15 Urine Glucose (UA) 100 mg/dL (NEGATIVE) H 11/05/20 21:15 Urine Ketones NEGATIVE mg/dL (NEGATIVE) 11/05/20 21:15 Urine Occult Blood LARGE (NEGATIVE) H 11/05/20 21:15 Urine Nitrite NEGATIVE (NEGATIVE) 11/05/20 21:15 Urine Bilirubin NEGATIVE (NEGATIVE) 11/05/20 21:15 Urine Urobilinogen 1 (NORMAL) E.U./dL (NORMAL) 11/05/20 21:15 Ur Leukocyte Esterase NEGATIVE (NEGATIVE) 11/05/20 21:15 Urine RBC 11-25 /HPF (0-5) H 11/05/20 21:15 Urine WBC 0-3 /HPF (0-3) 11/05/20 21:15 Ur Squamous Epith Cells FEW Squamous (<= Few) 11/05/20 21:15 Amorphous Sediment Moderate /LPF 11/05/20 21:15 Urine Bacteria Rare /HPF (None Seen) 11/05/20 21:15 Urine Casts 3-5 Hyaline Casts /LPF 11/05/20 21:15 Ur Microscopic Review INDICATED 11/05/20 21:15 Urine Culture Comments NOT INDICATED 11/05/20 21:15 Nasal Adenovirus (PCR) NOT DETECTED 11/05/20 20:03 Nasal B. parapertussis DNA (PCR) NOT DETECTED 11/05/20 20:03 Nasal Coronavir 229E PCR NOT DETECTED 11/05/20 20:03 Nasal Coronavir HKU1 PCR NOT DETECTED 11/05/20 20:03 Nasal Coronavir NL63 PCR NOT DETECTED 11/05/20 20:03 Nasal Coronavir OC43 PCR NOT DETECTED 11/05/20 20:03 Nasal Enterovir/Rhinovir PCR NOT DETECTED 11/05/20 20:03 Nasal Influenza B PCR NOT DETECTED 11/05/20 20:03 Nasal Influenza A PCR NOT DETECTED 11/05/20 20:03 Nasal Parainfluen 1 PCR NOT DETECTED 11/05/20 20:03 Nasal Parainfluen 2 PCR NOT DETECTED 11/05/20 20:03 Nasal Parainfluen 3 PCR NOT DETECTED 11/05/20 20:03 Nasal Parainfluen 4 PCR NOT DETECTED 11/05/20 20:03 Nasal RSV (PCR) NOT DETECTED 11/05/20 20:03 Nasal Screen MRSA (PCR) NEGATIVE (NEGATIVE) 11/05/20 21:50 Nasal B.pertussis DNA PCR NOT DETECTED 11/05/20 20:03 Nasal C.pneumoniae (PCR) NOT DETECTED 11/05/20 20:03 Zachery Human Metapneumo PCR NOT DETECTED 11/05/20 20:03 Nasal M.pneumoniae (PCR) NOT DETECTED 11/05/20 20:03 Nasal SARS-CoV-2 (PCR) NOT DETECTED 11/05/20 20:03 Ethyl Alcohol < 5.0 mg/dL 11/05/20 18:30 Sepsis Event Note (H) - Evaluation Current Stage of Sepsis: Severe sepsis Possible source of Sepsis: positive: Unknown - Sepsis Criteria Sepsis Criteria: Recorded Temperature greater than 38.3C or Less than 36C, Recorded Heart Rate greater than 90 bpm, Recorded Respiratory Rate greater than 20, WBC count greater than 12,000 or less than 4000, BUILDING ECONOMIST: altered consciousness (unrelated to primary neuro pathology), Renal: urine output less than 0.5ml/kg/hr for 2 hours or creatinine gr, Metabolic: lactate > 2 mmol/L
[2020-11-07] MEDS: WARFARIN 1 MG TABLET PO SCH (14:45)
[2020-11-07] MEDS: VANCOMYCIN INJ 1 GM, VANCOMYCIN INJ 500 MG in SODIUM CHLORIDE 0.9% 500 ML IV SCH (17:35)
[2020-11-07] MEDS: INSULIN GLARGINE 300 UNIT/3 ML PEN SUBQ SCH (21:22)
[2020-11-08 04:59] LABS: BASOPHILS % (AUTO) 0.6 %; EOSINOPHILS # (AUTO) 0.1 10^3/uL (0.0-0.7); EOSINOPHILS % (AUTO) 2.5 %; HCT - HEMATOCRIT 43.1 % (42.0-52.0); HGB - HEMOGLOBIN 13.2 g/dL (14.0-18.0); LYMPHOCYTES # (AUTO) 1.1 10^3/uL (1.5-3.5); LYMPHOCYTES % (AUTO) 23.8 %; MEAN CORPUSCULAR HEMOGLOBIN 29.4 pg (27.0-31.0); MEAN CORPUSCULAR HGB CONC 30.6 g/dL (32.0-36.0); MEAN PLATELET VOLUME 12.3 fL (7.4-11.4); MONOCYTES # (AUTO) 0.4 10^3/uL (0.0-1.0); MONOCYTES % (AUTO) 7.9 %; NEUTROPHILS # (AUTO) 3.1 10^3/uL (1.5-6.6); PLT - PLATELET COUNT 130 10^3/uL (130-450); RED BLOOD COUNT 4.49 10^6/uL (4.70-6.10); RED CELL DISTRIBUTION WIDTH 15.9 % (12.0-15.0); WHITE BLOOD COUNT 4.8 x10^3/uL (4.8-10.8)
[2020-11-08 05:11] LABS: PHOSPHORUS 2.4 mg/dL (2.5-4.6)
[2020-11-08 05:57] LABS: INR 3.1 (0.8-1.2); PT - PROTHROMBIN TIME 32.3 secs (9.9-12.6)
[2020-11-08] MEDS: AZTREONAM 2 GM in SODIUM CHLORIDE 0.9% MINIBAG 100 ML IV SCH ×3 (07:49→23:43)
[2020-11-08] MEDS: INSULIN ASPART 300 UNIT/3 ML PEN SUBQ SCH ×4 (07:50→20:53)
[2020-11-08] MEDS: LACTATED RINGERS 1,000 ML IV SCH (07:51)
[2020-11-08] MEDS: SACCHAROMYCES BOULARDII 250 MG CAPSULE PO SCH ×2 (09:15→16:42)
[2020-11-08] MEDS: SODIUM CHLORIDE FLUSH 0.9% 10 ML SYRINGE IVP SCH ×2 (09:15→16:42)
[2020-11-08 09:16] LABS: ALBUMIN 2.9 g/dL (3.2-5.5); BILIRUBIN,DIRECT 0.4 mg/dL (0.1-0.5); BILIRUBIN,TOTAL 1.3 mg/dL (0.2-1.0); TOTAL PROTEIN 6.3 g/dL (6.7-8.2)
--- NOTE | 2020-11-08 10:13 | XRAY Report ---
PROCEDURE: Chest 1 View X-Ray INDICATIONS: SOB TECHNIQUE: One view of the chest was acquired. COMPARISON: 11/06/2020 FINDINGS: Surgical changes and devices: Left-sided pacer. Lungs and pleura: No pleural effusions or pneumothorax. No significant change in mild diffuse inters titial pulmonary opacity. Mediastinum: Mediastinal contours appear normal. Heart size is enlarged. Bones and chest wall: No suspicious bony lesions. Overlying soft tissues appear unremarkable. IMPRESSION: No change in mild diffuse edema versus pneumonia. Reviewed by: Prosper Chong MD on 11/08/2020 10:12 AM PDT Approved by: Prosper Chong MD on 11/08/2020 10:12 AM PDT Station ID: [id number]
[2020-11-08] MEDS ORDERED: IOPAMIDOL-300 100 ML VIAL ONE (10:50)
[2020-11-08] MEDS ORDERED: PERFLUTREN LIPID MICROSPHERES 1.65 MG/1.5 ML VIAL IVP ONE (12:48)
--- NOTE | 2020-11-08 16:08 | PROVIDER PROGRESS NOTE ---
Subjective - Prog Note Date Prog Note Date: 11/08/20 - Subjective Pt reports feeling: Improved Subjective: pt report he has no appetite and feel fatigue. pt's shortness of breath show when I assess pt but pt has no shortness of breath when he is comfortable sleeping at bed, and no significant SOB when PT/OT evaluated and treated for pt. ECHO ordered today show pt has no clots in heart. pt has INR 3.1 on today. But ECHO did show pt has severe reduced EF at 20-25%. Discussed the all test results with pt's and pt, advise pt need very closely followup with his accounts payable representative. pt's state she will make appointment let him see his accounts payable representative ROLAND Current Medications - Current Medications Current Medications: Active Medications Acetaminophen (Acetaminophen 325 Mg Tablet) 650 mg PO Q4HR PRN PRN Reason: Pain 1 to 4 Last Admin: 11/08/20 12:17 Dose: 650 mg Documented by: Aspirin (Aspirin Chew 81 Mg Tablet) 81 mg PO DAILY [facility]CELLUS Atorvastatin Calcium (Atorvastatin 40 Mg Tablet) 40 mg PO QPM [facility]CELL[facility] Carvedilol (Carvedilol 12.5 Mg Tablet) 6.25 mg PO BID [facility]CELL[facility] Aztreonam 2 gm/ Sodium (Chloride) 100 mls @ 100 mls/hr IV Q8H [facility] Last Infusion: 11/08/20 09:00 Dose: Infused Documented by: Insulin Aspart (Insulin Aspart 300 Unit/3 Ml Pen) 1 - 9 unit SUBQ 0800,1200,1700,2100 [facility]; Protocol Last Admin: 11/08/20 12:16 Dose: 1 unit Documented by: Insulin Glargine (Insulin Glargine 300 Unit/3 Ml Pen) 25 unit SUBQ QPM [facility] Last Admin: 11/07/20 21:22 Dose: 25 unit Documented by: Losartan Potassium (Losartan 50 Mg Tablet) 50 mg PO DAILY [facility]CELL[facility] Metoclopramide HCl (Metoclopramide 10 Mg Tablet) 5 mg PO ACHS [facility] Multi-Ingredient Ointment (Zinc Oxide 20% Oint 30 Gm Tube) 1 applic TOP PRN PRN PRN Reason: Skin Care Last Admin: 11/07/20 05:02 Dose: 1 applic Documented by: Ondansetron HCl (Ondansetron Odt 4 Mg Tablet) 4 mg TL Q6HR PRN PRN Reason: Nausea / Vomiting Saccharomyces Boulardii (Saccharomyces Boulardii 250 Mg Capsule) 250 mg PO BIDWM [facility] Last Admin: 11/08/20 09:15 Dose: 250 mg Documented by: Sodium Chloride (Sodium Chloride Flush 0.9% 10 Ml Syringe) 10 ml IVP PRN PRN PRN Reason: NEEDED PER PROVIDER ORDERS Last Admin: 11/06/20 19:25 Dose: 10 ml Documented by: Sodium Chloride (Sodium Chloride Flush 0.9% 10 Ml Syringe) 10 ml IVP 0100,0900,1700 [facility] Last Admin: 11/08/20 09:15 Dose: 10 ml Documented by: Torsemide (Torsemide 20 Mg Tablet) 5 mg PO MOWE [facility] Baclofen 10 mg PO BID 11/06/14 Carvedilol 6.25 mg PO BID 11/06/14 Insulin Aspart [Novolog] 0 - 25 units SQ TIDWM 11/06/14 Losartan [Cozaar] 25 mg PO DAILY 11/06/14 Aspirin [Children's Aspirin] 81 mg PO DAILY 02/26/18 Gabapentin 300 mg PO TID 02/26/18 Metoclopramide HCl 5 mg PO QID 02/26/18 Atorvastatin [Lipitor] 40 mg PO QPM 05/04/19 traMADol [Ultram] 50 mg PO TID 05/04/19 Insulin Glargine [Lantus Solostar] 60 units SQ BID 11/06/20 Torsemide 5 mg PO MOWEFR 11/06/20 Warfarin Sodium [Jantoven] 4 mg PO DAILY 11/06/20 Objective - Vital Signs/Intake & Output Vital Signs: Vital Signs x48h Temp Pulse Resp BP Pulse Ox 11/08/20 11:59 37.2 C 82 32 H 144/82 H 96 11/08/20 10:40 143/94 H Intake & Output: Intake & Output 11/05/20 11/06/20 11/07/20 11/08/20 23:59 23:59 23:59 23:59 Intake Total 3095 5180.667 3752.333 1340 Output Total 0 300 575 425 Balance 3095 4880.667 3177.333 915 - Objective General Appearance: positive: No acute distress, Alert. negative: Lethargic Eyes Bilateral: positive: Normal inspection, PERRL, No lid inflammation ENT: positive: ENT inspection nml, Pharynx nml. negative: Purulent nasal drainage, Dry mucous membranes Neck: positive: Nml inspection, Trachea midline. negative: Thyromegaly, Tracheal deviation Respiratory: positive: Chest non-tender, Rales. negative: Wheezes Cardiovascular: positive: Regular rate & rhythm, No murmur. negative: Tachycardia, Bradycardia, Systolic murmur, Diastolic murmur Peripheral Pulses: 2+ Radial (R), 2+ Radial (L) Abdomen: positive: Non-tender, Nml bowel sounds, No distention. negative: Tenderness Back: positive: Nml inspection Skin: positive: Color nml, Warm, Dry. negative: Cyanosis, Diaphoresis Extremities: positive: Non-tender, Full ROM, Nml appearance. negative: Calf tenderness Neurologic/Psychiatric: positive: Motor nml, Sensation nml. negative: Weakness, Sensory loss, Facial droop, Slurred/abnml speech - Lab Results Fish Bones: 11/08/20 04:46 11/08/20 04:46 Other Labs: Lab Results x24hrs 11/08/20 11/08/20 11/08/20 Range/Units 14:37 04:46 04:46 WBC (4.8-10.8) x10^3/uL RBC (4.70-6.10) 10^6/uL Hgb (14.0-18.0) g/dL Hct (42.0-52.0) % MCV (80.0-94.0) fL MCH (27.0-31.0) pg MCHC (32.0-36.0) g/dL RDW (12.0-15.0) % Plt Count (130-450) 10^3/uL MPV (7.4-11.4) fL Neut # (Auto) (1.5-6.6) 10^3/uL Lymph # (Auto) (1.5-3.5) 10^3/uL Charlton # (Auto) (0.0-1.0) 10^3/uL Eos # (Auto) (0.0-0.7) 10^3/uL Baso # (Auto) (0.0-0.1) 10^3/uL Absolute Nucleated RBC x10^3/uL Nucleated RBC % /100WBC PT 32.3 H (9.9-12.6) secs INR 3.1 H (0.8-1.2) Sodium (135-145) mmol/L Potassium (3.5-5.0) mmol/L Chloride (101-111) mmol/L Carbon Dioxide (21-32) mmol/L Anion Gap (6-13) BUN (6-20) mg/dL Creatinine (0.6-1.2) mg/dL Estimated GFR (MDRD) (>89) Glucose (70-100) mg/dL Calcium (8.5-10.3) mg/dL Phosphorus (2.5-4.6) mg/dL Magnesium (1.7-2.8) mg/dL Total Bilirubin 1.3 H (0.2-1.0) mg/dL Direct Bilirubin 0.4 (0.1-0.5) mg/dL AST 40 (10-42) IU/L ALT 60 (10-60) IU/L Alkaline Phosphatase 151 H (42-121) IU/L B-Natriuretic Peptide 1273 H (5-100) pg/mL Total Protein 6.3 L (6.7-8.2) g/dL Albumin 2.9 L (3.2-5.5) g/dL Globulin 3.4 (2.1-4.2) g/dL 11/08/20 11/08/20 Range/Units 04:46 04:46 WBC 4.8 (4.8-10.8) x10^3/uL RBC 4.49 L (4.70-6.10) 10^6/uL Hgb 13.2 L (14.0-18.0) g/dL Hct 43.1 (42.0-52.0) % MCV 96.0 H (80.0-94.0) fL MCH 29.4 (27.0-31.0) pg MCHC 30.6 L (32.0-36.0) g/dL RDW 15.9 H (12.0-15.0) % Plt Count 130 (130-450) 10^3/uL MPV 12.3 H (7.4-11.4) fL Neut # (Auto) 3.1 (1.5-6.6) 10^3/uL Lymph # (Auto) 1.1 L (1.5-3.5) 10^3/uL Charlton # (Auto) 0.4 (0.0-1.0) 10^3/uL Eos # (Auto) 0.1 (0.0-0.7) 10^3/uL Baso # (Auto) 0.0 (0.0-0.1) 10^3/uL Absolute Nucleated RBC 0.00 x10^3/uL Nucleated RBC % 0.0 /100WBC PT (9.9-12.6) secs INR (0.8-1.2) Sodium 134 L (135-145) mmol/L Potassium 4.0 (3.5-5.0) mmol/L Chloride 102 (101-111) mmol/L Carbon Dioxide 22 (21-32) mmol/L Anion Gap 10.0 (6-13) BUN 25 H (6-20) mg/dL Creatinine 1.0 (0.6-1.2) mg/dL Estimated GFR (MDRD) 75 L (>89) Glucose 172 H (70-100) mg/dL Calcium 8.0 L (8.5-10.3) mg/dL Phosphorus 2.4 L (2.5-4.6) mg/dL Magnesium 2.0 (1.7-2.8) mg/dL Total Bilirubin (0.2-1.0) mg/dL Direct Bilirubin (0.1-0.5) mg/dL AST (10-42) IU/L ALT (10-60) IU/L Alkaline Phosphatase (42-121) IU/L B-Natriuretic Peptide (5-100) pg/mL Total Protein (6.7-8.2) g/dL Albumin (3.2-5.5) g/dL Globulin (2.1-4.2) g/dL ABX Reporting Has patient been on IV antibiotics over the past 48 hours?: Yes Sepsis Event Note (H) - Evaluation Current Stage of Sepsis: Severe sepsis Possible source of Sepsis: positive: Unknown - Sepsis Criteria Sepsis Criteria: Recorded Temperature greater than 38.3C or Less than 36C, Recorded Heart Rate greater than 90 bpm, Recorded Respiratory Rate greater than 20, WBC count greater than 12,000 or less than 4000, RECORD SYSTEMS ANALYST: altered consciousness (unrelated to primary neuro pathology), Renal: urine output less than 0.5ml/kg/hr for 2 hours or creatinine gr, Metabolic: lactate > 2 mmol/L Assessment/Plan - Problem List (1) Sepsis Impression: Resolving and significant improved. pt has no fever, WBC is normal arrange, lactic acid is normal, blood culture is negative. but pt is still presenting SOB. CXR reveal pneumonia. we will continue Aztreonam but hold vancomycin. (2) heart failure pt's EF is only 20-25% in today ECHO but without thrombus. Discussed the test result with the patient's and patient. resume pt's home meds Coreg, Cozaar, and Torsemide. pt's CXR reveals mild pulmonary edema, and elevated BNP, and pt show SOB. (3)shortness of breath pt show significant shortness of breath but on and off. pt has severe left ventricle reduced function which is likely causing pt's SOB. esume pt's home meds Coreg, Cozaar, and Torsemide. Supplement of oxygen as needed (4)poor appetite pt has no appetite on today, and feel fatigue. pt has severe heart failure which could cause pt's symptoms. consult with fleet assistant, and resume pt's home meds Coreg, Cozaar, and Torsemide. (5) Leukopenia resolved (6) Syncope Assessment/Plan: pt has severe reduced EF but without aortic stenosis and infection, dehydration at admission. fall precaution and PT/OT evaluation and treatment, resume pt's home meds Coreg, Cozaar, and Torsemide, followup with accounts payable representative as out-pt (7) Metabolic encephalopathy Assessment/Plan: today pt is as his baseline. Continue neurochecks. (8) Elevated LFTs nearly resolved (9) Acute kidney injury superimposed on CKD resolved, creatinine is 1, but precaution of fluid over loaded since pt has severe heart failure. (10) Cardiomyopathy, ischemic Assessment/Plan: He has a known history of ischemic cardiomyopathy. New ECHO show 20-25% EF, He has an AICD in place. CXR reveals mild pulmonary congestion, and present significant SOB, His BNP is elevated 1200s. Creatinine became normal now. we hold IVF, resume pt's home meds Coreg, Cozaar, and Torsemide. (11) Coronary artery disease Assessment/Plan: stable, He has a known history of coronary artery disease and ischemic cardiomyopathy. His troponin is elevated in the 100s but suspect this is likely demand ischemia. His EKG did show IVCD but no obvious changes by EKG of ischemia. Continue his home aspirin and statin. Continue on telemetry. (12) Insulin dependent type 2 diabetes mellitus Assessment/Plan: His A1c returned at 7.7 indicating fairly good control of DM2 We resumed his home dose of Lantus and sliding scale Insulin. (13) History of CVA with residual deficit Assessment/Plan: He has a history of prior stroke and is on Coumadin and aspirin. INR is 3.1 today, pt is on antibiotics, and we will hold Coumadin today and continue check PT/INR, we may resume coumadin on tomorrow. He has residual left-sided deficits and dysarthria. We will continue his home medications, aspirin, statin consult with PT/OT (14) Lactic acidosis Assessment/Plan: Resolved
[2020-11-08] MEDS: METOCLOPRAMIDE 10 MG TABLET PO SCH ×2 (16:42→20:52)
[2020-11-08] MEDS ORDERED: TORSEMIDE 20 MG TABLET PO SCH (17:02)
[2020-11-08] MEDS: carvediloL 12.5 MG TABLET PO SCH (20:52)
[2020-11-08] MEDS: ATORVASTATIN 40 MG TABLET PO SCH (20:52)
[2020-11-08] MEDS: INSULIN GLARGINE 300 UNIT/3 ML PEN SUBQ SCH (20:52)
[2020-11-08] MEDS ORDERED: METOPROLOL 5 MG/5 ML VIAL IVP STA (22:30)
[2020-11-09] MEDS ORDERED: METOPROLOL 5 MG/5 ML VIAL IVP STA (00:46)
[2020-11-09] MEDS: SODIUM CHLORIDE FLUSH 0.9% 10 ML SYRINGE IVP SCH ×3 (00:58→16:48)
[2020-11-09 05:39] LABS: BASOPHILS # (AUTO) 0.1 10^3/uL (0.0-0.1); EOSINOPHILS # (AUTO) 0.2 10^3/uL (0.0-0.7); EOSINOPHILS % (AUTO) 3.6 %; HCT - HEMATOCRIT 43.5 % (42.0-52.0); HGB - HEMOGLOBIN 13.5 g/dL (14.0-18.0); LYMPHOCYTES # (AUTO) 1.3 10^3/uL (1.5-3.5); LYMPHOCYTES % (AUTO) 25.3 %; MEAN CORPUSCULAR HEMOGLOBIN 29.5 pg (27.0-31.0); MEAN CORPUSCULAR VOLUME 95.2 fL (80.0-94.0); MEAN PLATELET VOLUME 12.9 fL (7.4-11.4); MONOCYTES # (AUTO) 0.3 10^3/uL (0.0-1.0); MONOCYTES % (AUTO) 6.8 %; NEUTROPHILS # (AUTO) 3.2 10^3/uL (1.5-6.6); NEUTROPHILS % (AUTO) 62.9 %; PLT - PLATELET COUNT 150 10^3/uL (130-450); RED BLOOD COUNT 4.57 10^6/uL (4.70-6.10); RED CELL DISTRIBUTION WIDTH 15.9 % (12.0-15.0)
[2020-11-09 05:50] LABS: CALCIUM 8.2 mg/dL (8.5-10.3); MAGNESIUM 2.1 mg/dL (1.7-2.8); PHOSPHORUS 2.5 mg/dL (2.5-4.6); POTASSIUM 4.1 mmol/L (3.5-5.0)
[2020-11-09 06:01] LABS: INR 3.4 (0.8-1.2); PT - PROTHROMBIN TIME 35.7 secs (9.9-12.6)
[2020-11-09] MEDS: METOCLOPRAMIDE 10 MG TABLET PO SCH ×4 (06:30→21:09)
[2020-11-09] MEDS: INSULIN ASPART 300 UNIT/3 ML PEN SUBQ SCH ×4 (07:44→21:06)
[2020-11-09] MEDS: AZTREONAM 2 GM in SODIUM CHLORIDE 0.9% MINIBAG 100 ML IV SCH (07:58)
[2020-11-09] MEDS: SACCHAROMYCES BOULARDII 250 MG CAPSULE PO SCH ×2 (08:03→16:48)
[2020-11-09] MEDS: carvediloL 12.5 MG TABLET PO SCH ×2 (08:03→21:05)
[2020-11-09] MEDS: ASPIRIN CHEW 81 MG TABLET PO SCH (08:06)
[2020-11-09] MEDS: LOSARTAN 50 MG TABLET PO SCH (08:06)
[2020-11-09] MEDS ORDERED: LOSARTAN 50 MG TABLET PO SCH (09:00)
[2020-11-09] MEDS ORDERED: LACTOBACILLUS RHAMNOSUS GG CAPSULE PO SCH (09:00)
[2020-11-09] MEDS ORDERED: TORSEMIDE 20 MG TABLET PO SCH ×4 (14:00→15:00)
--- NOTE | 2020-11-09 14:18 | PROVIDER PROGRESS NOTE ---
Assessment/Plan - Problem List (1) Atrial fibrillation with rapid ventricular response Assessment/Plan: pt had Atrial fibrillation with RVR and hypotension on last night. The patient was given twice intravenous meds of metoprolol then patient return to his baseline rhythm. pt has been on dual Coumadin and aspirin. Coumadin is holding because of elevated INR now. pt has home meds Coreg. today, pt's HR is stable, continue home coreg, continue tele monitor, pt is full code. Troponin is reduced and flat, it is likely demand Ischemia. pt denies any chest pain, and pt report he feel better on today. (1) Sepsis resolved. pt has no elevated WBC, no fever, hold antibiotics now. (2) systolic heart failure 11/09, pt had elevated BNP, CXR reveal mild pulmonary edema but pt's SOB is improved, pt had 95% sats on room air. pt took Torsemide 5mg, 3 time per week, increase torsemide 5 mg daily. continue pt's home meds Coreg, Cozaar, continue tele and vital monitor, mild fluid restrict and daily weight. pt's EF is only 20-25% in today ECHO but without thrombus. Discussed the test result with the patient's and patient. resume pt's home meds Coreg, Cozaar, and Torsemide. pt's CXR reveals mild pulmonary edema, and elevated BNP, and pt show SOB. (3)shortness of breath 11/09 improved. it is likely caused by pulmonary edema. continue pt's home meds Coreg, Cozaar, and elevated pt's home Torsemide dosage. pt show significant shortness of breath but on and off. pt has severe left ventricle reduced function which is likely causing pt's SOB. esume pt's home meds Coreg, Cozaar, and Torsemide. Supplement of oxygen as needed (4)poor appetite 11/09 improved significant, pt ate 75% of his diet. pt has no appetite on today, and feel fatigue. pt has severe heart failure which could cause pt's symptoms. consult with hood maker, and resume pt's home meds Coreg, Cozaar, and Torsemide. (5) Leukopenia resolved (6) Syncope Assessment/Plan: pt has severe reduced EF but without aortic stenosis and infection, dehydration at admission. fall precaution and PT/OT evaluation and treatment, resume pt's home meds Coreg, Cozaar, and Torsemide, followup with combination window installer as out-pt (7) Metabolic encephalopathy Assessment/Plan: today pt is as his baseline. Continue neurochecks. (8) Elevated LFTs nearly resolved (9) Acute kidney injury superimposed on CKD resolved, creatinine is 1, but precaution of fluid over loaded since pt has severe heart failure. (10) Cardiomyopathy, ischemic Assessment/Plan: He has a known history of ischemic cardiomyopathy. New ECHO show 20-25% EF, He has an AICD in place. CXR reveals mild pulmonary congestion, and present significant SOB, His BNP is elevated 1200s. Creatinine became normal now. we hold IVF, resume pt's home meds Coreg, Cozaar, and Torsemide. (11) Coronary artery disease Assessment/Plan: stable, He has a known history of coronary artery disease and ischemic cardiomyopathy. His troponin is elevated in the 100s but suspect this is likely demand ischemia. His EKG did show IVCD but no obvious changes by EKG of ischemia. Continue his home aspirin and statin. Continue on telemetry. (12) Insulin dependent type 2 diabetes mellitus Assessment/Plan: His A1c returned at 7.7 indicating fairly good control of DM2 We resumed his home dose of Lantus and sliding scale Insulin. (13) History of CVA with residual deficit Assessment/Plan: He has a history of prior stroke and is on Coumadin and aspirin. INR is 3.1 today, pt is on antibiotics, and we will hold Coumadin today and continue check PT/INR, we may resume coumadin on tomorrow. He has residual left-sided deficits and dysarthria. We will continue his home medications, aspirin, statin consult with PT/OT (14) Lactic acidosis Assessment/Plan: Resolved - Current Meds Current Meds: Current Medications Generic Name Dose Route Start Last Admin Trade Name Freq PRN Reason Stop Dose Admin Acetaminophen 650 mg 11/05/20 20:20 11/08/20 12:17 Acetaminophen 325 Mg Tablet PO 650 mg Q4HR PRN Administration Pain 1 to 4 Aspirin 81 mg 11/09/20 09:00 11/09/20 08:06 Aspirin Chew 81 Mg Tablet PO 81 mg DAILY [facility]CE[facility] Administration Atorvastatin Calcium 40 mg 11/08/20 21:00 11/08/20 20:52 Atorvastatin 40 Mg Tablet PO 40 mg QPM [facility] Administration Carvedilol 6.25 mg 11/08/20 21:00 11/09/20 08:03 Carvedilol 12.5 Mg Tablet PO 6.25 mg BID [facility] Administration Insulin Aspart 1 - 9 unit 11/05/20 21:00 11/09/20 12:07 Insulin Aspart 300 Unit/3 Ml Pen SUBQ 3 unit 0800,1200,1700,2100 [facility] Administration Protocol Insulin Glargine 25 unit 11/05/20 21:00 11/08/20 20:52 Insulin Glargine 300 Unit/3 Ml Pen SUBQ 25 unit QPM [facility] Administration Losartan Potassium 50 mg 11/09/20 09:00 11/09/20 08:06 Losartan 50 Mg Tablet PO 50 mg DAILY [facility] Administration Metoclopramide HCl 5 mg 11/08/20 16:00 11/09/20 12:06 Metoclopramide 10 Mg Tablet PO 5 mg ACHS [facility] Administration Multi-Ingredient Ointment 1 applic 11/06/20 15:18 11/07/20 05:02 Zinc Oxide 20% Oint 30 Gm Tube TOP 1 applic PRN PRN Administration Skin Care Saccharomyces Boulardii 250 mg 11/08/20 08:53 11/09/20 08:03 Saccharomyces Boulardii 250 Mg Capsule PO 250 mg BIDWM [facility] Administration Sodium Chloride 10 ml 11/05/20 20:20 11/06/20 19:25 Sodium Chloride Flush 0.9% 10 Ml Syringe IVP 10 ml PRN PRN Administration NEEDED PER PROVIDER ORDERS Sodium Chloride 10 ml 11/06/20 01:00 11/09/20 08:06 Sodium Chloride Flush 0.9% 10 Ml Syringe IVP 10 ml 0100,0900,1700 [facility] Administration - Lab Result Fish Bone Diagrams: 11/09/20 04:45 11/09/20 04:45 - Additional Planning My Orders: My Active Orders 11/08/20 16:00 Metoclopramide [Reglan] 5 mg PO ACHS 11/08/20 16:45 Nutrition Consult [CONS] Routine 11/08/20 21:00 Atorvastatin [Lipitor] 40 mg PO QPM carvediloL [Coreg] 6.25 mg PO BID 11/09/20 Breakfast Carb-controlled Diet [DIET] 11/09/20 09:00 Aspirin Chewable [[place] Aspirin] 81 mg PO DAILY Losartan [Cozaar] 50 mg PO DAILY 11/09/20 13:33 Fluid Restriction [RC] ONCE 11/09/20 13:43 Daily Weight [RC] 0611/09/20 14:00 Torsemide 5 mg PO DAILY 11/10/20 05:00 BNP - B-NATRIURETIC PEPTIDE [IAI] DAILYLAB PT WITH INR [COAG] DAILYLAB 11/11/20 05:00 BNP - B-NATRIURETIC PEPTIDE [IAI] DAILYLAB PT WITH INR [COAG] DAILYLAB 11/12/20 05:00 BNP - B-NATRIURETIC PEPTIDE [IAI] DAILYLAB PT WITH INR [COAG] DAILYLAB 11/13/20 05:00 PT WITH INR [COAG] DAILYLAB Subjective - Subjective Patient Reports: Feeling Better Nursing Reports: No Complaints Objective Vital Signs: Vital Signs - 24 hr 11/08/20 11/08/20 11/08/20 16:10 19:43 22:09 Temperature 36.4 C L 36.5 C Heart Rate [ 87 92 150 H Monitoring electrodes] Respiratory 20 20 Rate Blood Pressure Blood Pressure 135/87 H 141/89 H [Left Brachial artery] Blood Pressure 118/80 [Right Brachial artery] O2 Saturation 95 93 11/08/20 11/08/20 11/08/20 22:44 22:50 22:55 Temperature Heart Rate [ 140 H 137 H Monitoring electrodes] Respiratory Rate Blood Pressure 111/77 Blood Pressure [Left Brachial artery] Blood Pressure 112/94 H 92/56 L [Right Brachial artery] O2 Saturation 11/08/20 11/08/20 11/08/20 23:00 23:07 23:25 Temperature Heart Rate [ 137 H 141 H 139 H Monitoring electrodes] Respiratory Rate Blood Pressure Blood Pressure [Left Brachial artery] Blood Pressure 107/87 H 97/67 139/85 H [Right Brachial artery] O2 Saturation 11/08/20 11/09/20 11/09/20 23:40 00:00 00:58 Temperature 36.7 C Heart Rate [ 135 H 136 H Monitoring electrodes] Respiratory 26 H Rate Blood Pressure 118/82 H Blood Pressure [Left Brachial artery] Blood Pressure 106/77 113/75 [Right Brachial artery] O2 Saturation 95 11/09/20 11/09/20 11/09/20 01:00 01:06 01:15 Temperature Heart Rate [ 139 H 140 H 135 H Monitoring electrodes] Respiratory Rate Blood Pressure Blood Pressure [Left Brachial artery] Blood Pressure 109/90 H 103/83 H 97/76 [Right Brachial artery] O2 Saturation 11/09/20 11/09/20 11/09/20 01:30 01:45 05:57 Temperature 36.6 C Heart Rate [ 78 74 82 Monitoring electrodes] Respiratory 18 Rate Blood Pressure Blood Pressure [Left Brachial artery] Blood Pressure 120/76 119/72 127/79 [Right Brachial artery] O2 Saturation 96 11/09/20 11/09/20 07:55 12:12 Temperature 36.5 C 36.4 C L Heart Rate [ 87 87 Monitoring electrodes] Respiratory 22 24 Rate Blood Pressure Blood Pressure [Left Brachial artery] Blood Pressure 123/85 H 132/77 H [Right Brachial artery] O2 Saturation 96 95 Oxygen O2 Source Room air I&O (Last 24 Hrs): Intake and Output Totals x24h 11/07/20 11/08/20 11/09/20 23:59 23:59 23:59 Intake Total 3752.333 1930 560 Output Total 575 425 Balance 3177.333 1505 560 General: Alert, Cooperative, No acute distress HEENT: Atraumatic Neck: Supple Lymphatic: no adenopathy Neuro: Alert, Non Focal, Oriented Times 3 Cardiovascular: Regular rate, Normal S1, Normal S2 Respiratory: Chest non-tender, No respiratory distress Abdomen: Normal bowel sounds, Soft, No tenderness Extremities: Normal pulses - Results Results: Laboratory Results WBC 5.0 x10^3/uL (4.8-10.8) 11/09/20 04:45 RBC 4.57 10^6/uL (4.70-6.10) L 11/09/20 04:45 Hgb 13.5 g/dL (14.0-18.0) L 11/09/20 04:45 Hct 43.5 % (42.0-52.0) 11/09/20 04:45 MCV 95.2 fL (80.0-94.0) H 11/09/20 04:45 MCH 29.5 pg (27.0-31.0) 11/09/20 04:45 MCHC 31.0 g/dL (32.0-36.0) L 11/09/20 04:45 RDW 15.9 % (12.0-15.0) H 11/09/20 04:45 Plt Count 150 10^3/uL (130-450) 11/09/20 04:45 MPV 12.9 fL (7.4-11.4) H 11/09/20 04:45 Neut # (Auto) 3.2 10^3/uL (1.5-6.6) 11/09/20 04:45 Lymph # (Auto) 1.3 10^3/uL (1.5-3.5) L 11/09/20 04:45 [place] # (Auto) 0.3 10^3/uL (0.0-1.0) 11/09/20 04:45 Eos # (Auto) 0.2 10^3/uL (0.0-0.7) 11/09/20 04:45 Baso # (Auto) 0.1 10^3/uL (0.0-0.1) 11/09/20 04:45 Absolute Nucleated RBC 0.00 x10^3/uL 11/09/20 04:45 Total Counted 100 11/06/20 04:37 Band Neuts % (Manual) 3 % (0-10) 11/06/20 04:37 Abnorm Lymph % (Manual) 0 % 11/06/20 04:37 Nucleated RBC % 0.0 /100WBC 11/09/20 04:45 Neutrophils # (Manual) 1.8 10^3/uL (1.5-6.6) 11/06/20 04:37 Lymphocytes # (Manual) 0.7 10^3/uL (1.5-3.5) L 11/06/20 04:37 Monocytes # (Manual) 0.1 10^3/uL (0.0-1.0) 11/06/20 04:37 Eosinophils # (Manual) 0.0 10^3/uL (0-0.7) 11/06/20 04:37 Basophils # (Manual) 0.1 10^3/uL (0-0.1) 11/06/20 04:37 Differential Comment MANUAL DIFFERENTIAL 11/06/20 04:37 WBC Morphology NORMAL APPEARANCE (NORMAL) 11/06/20 04:37 Platelet Estimate DECREASED (<130,000) (NORMAL) 11/06/20 04:37 Platelet Morphology NORMAL APPEARANCE (NORMAL) 11/06/20 04:37 RBC Morph Micro Appear NORMAL APPEARANCE (NORMAL) 11/06/20 04:37 PT 35.7 secs (9.9-12.6) H 11/09/20 04:45 INR 3.4 (0.8-1.2) H 11/09/20 04:45 Whole Blood INR 1.9 (0.8-1.2) H 11/06/20 09:14 Bld Gas Analysis Time 2242 11/05/20 22:35 Sample Site RIGHT RADIAL 11/05/20 22:35 ABG pH 7.33 (7.35-7.45) L 11/05/20 22:35 ABG pCO2 41 mmHg (34-45) 11/05/20 22:35 ABG pO2 66 mmHg (80-100) L 11/05/20 22:35 ABG HCO3 20.9 mmol/L (22.0-26.0) L 11/05/20 22:35 ABG Total CO2 22.2 MMOL/L (21.0-29.0) 11/05/20 22:35 ABG O2 Saturation 91 % (94-98) L 11/05/20 22:35 ABG Base Excess -4.7 mmol/L (-2.0-3.0) L 11/05/20 22:35 Shankar Test POSITIVE 11/05/20 22:35 VBG pH 7.176 (7.31-7.41) L 11/05/20 18:30 VBG pCO2 59.3 mmHg (41-51) H 11/05/20 18:30 VBG pO2 21.7 mmHg (25-47) L 11/05/20 18:30 VBG HCO3 21.4 mmol/L (23-28) L 11/05/20 18:30 VBG Total CO2 23.3 mmol/L (24-29) L 11/05/20 18:30 VBG O2 Saturation 24.7 % (60-80) L 11/05/20 18:30 VBG Base Excess -7.8 mmol/L (-2 - +2) L 11/05/20 18:30 Room Air YES 11/05/20 22:35 Sodium 138 mmol/L (135-145) 11/09/20 04:45 Potassium 4.1 mmol/L (3.5-5.0) 11/09/20 04:45 Chloride 107 mmol/L (101-111) 11/09/20 04:45 Carbon Dioxide 22 mmol/L (21-32) 11/09/20 04:45 Anion Gap 9.0 (6-13) 11/09/20 04:45 BUN 27 mg/dL (6-20) H 11/09/20 04:45 Creatinine 1.0 mg/dL (0.6-1.2) 11/09/20 04:45 Estimated GFR (MDRD) 75 (>89) L 11/09/20 04:45 Glucose 156 mg/dL (70-100) H 11/09/20 04:45 POC Whole Bld Glucose 186 mg/dL (70 - 100) H 11/09/20 12:02 Estimat Average Glucose 174 mg/dL (70-100) H 11/06/20 04:37 Hemoglobin A1c % 7.7 % (4.27-6.07) H 11/06/20 04:37 Lactic Acid 1.4 mmol/L (0.5-2.2) 11/05/20 23:49 Calcium 8.2 mg/dL (8.5-10.3) L 11/09/20 04:45 Phosphorus 2.5 mg/dL (2.5-4.6) 11/09/20 04:45 Magnesium 2.1 mg/dL (1.7-2.8) 11/09/20 04:45 Total Bilirubin 1.3 mg/dL (0.2-1.0) H 11/08/20 04:46 Direct Bilirubin 0.4 mg/dL (0.1-0.5) 11/08/20 04:46 AST 40 IU/L (10-42) 11/08/20 04:46 ALT 60 IU/L (10-60) 11/08/20 04:46 Alkaline Phosphatase 151 IU/L (42-121) H 11/08/20 04:46 Troponin I High Sens 81.6 ng/L (2.3-19.7) H* 11/09/20 04:45 C-Reactive Protein 2.4 mg/dL (0-1.0) H 11/06/20 04:37 B-Natriuretic Peptide 1452 pg/mL (5-100) H 11/09/20 04:45 Total Protein 6.3 g/dL (6.7-8.2) L 11/08/20 04:46 Albumin 2.9 g/dL (3.2-5.5) L 11/08/20 04:46 Globulin 3.4 g/dL (2.1-4.2) 11/08/20 04:46 Albumin/Globulin Ratio 1.0 (1.0-2.2) 11/05/20 18:30 Lipase 50 U/L (22-51) 11/05/20 18:30 Vitamin B12 700 pg/mL (180-914) 11/07/20 04:39 TSH 2.12 uIU/mL (0.34-5.60) 11/07/20 04:39 Urine Color YELLOW 11/05/20 21:15 Urine Clarity HAZY (CLEAR) 11/05/20 21:15 Urine pH 5.0 PH (5.0-7.5) 11/05/20 21:15 Ur Specific [place] >=1.030 (1.002-1.030) H 11/05/20 21:15 Urine Protein >=300 mg/dL (NEGATIVE) H 11/05/20 21:15 Urine Glucose (UA) 100 mg/dL (NEGATIVE) H 11/05/20 21:15 Urine Ketones NEGATIVE mg/dL (NEGATIVE) 11/05/20 21:15 Urine Occult Blood LARGE (NEGATIVE) H 11/05/20 21:15 Urine Nitrite NEGATIVE (NEGATIVE) 11/05/20 21:15 Urine Bilirubin NEGATIVE (NEGATIVE) 11/05/20 21:15 Urine Urobilinogen 1 (NORMAL) E.U./dL (NORMAL) 11/05/20 21:15 Ur Leukocyte Esterase NEGATIVE (NEGATIVE) 11/05/20 21:15 Urine RBC 11-25 /HPF (0-5) H 11/05/20 21:15 Urine WBC 0-3 /HPF (0-3) 11/05/20 21:15 Ur Squamous Epith Cells FEW Squamous (<= Few) 11/05/20 21:15 Amorphous Sediment Moderate /LPF 11/05/20 21:15 Urine Bacteria Rare /HPF (None Seen) 11/05/20 21:15 Urine Casts 3-5 Hyaline Casts /LPF 11/05/20 21:15 Ur Microscopic Review INDICATED 11/05/20 21:15 Urine Culture Comments NOT INDICATED 11/05/20 21:15 Nasal Adenovirus (PCR) NOT DETECTED 11/05/20 20:03 Nasal B. parapertussis DNA (PCR) NOT DETECTED 11/05/20 20:03 Nasal Coronavir 229E PCR NOT DETECTED 11/05/20 20:03 Nasal Coronavir HKU1 PCR NOT DETECTED 11/05/20 20:03 Nasal Coronavir NL63 PCR NOT DETECTED 11/05/20 20:03 Nasal Coronavir OC43 PCR NOT DETECTED 11/05/20 20:03 Nasal Enterovir/Rhinovir PCR NOT DETECTED 11/05/20 20:03 Nasal Influenza B PCR NOT DETECTED 11/05/20 20:03 Nasal Influenza A PCR NOT DETECTED 11/05/20 20:03 Nasal Parainfluen 1 PCR NOT DETECTED 11/05/20 20:03 Nasal Parainfluen 2 PCR NOT DETECTED 11/05/20 20:03 Nasal Parainfluen 3 PCR NOT DETECTED 11/05/20 20:03 Nasal Parainfluen 4 PCR NOT DETECTED 11/05/20 20:03 Nasal RSV (PCR) NOT DETECTED 11/05/20 20:03 Nasal Screen MRSA (PCR) NEGATIVE (NEGATIVE) 11/05/20 21:50 Nasal B.pertussis DNA PCR NOT DETECTED 11/05/20 20:03 Nasal C.pneumoniae (PCR) NOT DETECTED 11/05/20 20:03 [place]y Human Metapneumo PCR NOT DETECTED 11/05/20 20:03 Nasal M.pneumoniae (PCR) NOT DETECTED 11/05/20 20:03 Nasal SARS-CoV-2 (PCR) NOT DETECTED 11/05/20 20:03 Ethyl Alcohol < 5.0 mg/dL 11/05/20 18:30 Sepsis Event Note (H) - Evaluation Current Stage of Sepsis: Severe sepsis Possible source of Sepsis: positive: Unknown - Sepsis Criteria Sepsis Criteria: Recorded Temperature greater than 38.3C or Less than 36C, Recorded Heart Rate greater than 90 bpm, Recorded Respiratory Rate greater than 20, WBC count greater than 12,000 or less than 4000, SAPPH[employer] GR[employer]ER: altered consciousness (unrelated to primary neuro pathology), Renal: urine output less than 0.5ml/kg/hr for 2 hours or creatinine gr, Metabolic: lactate > 2 mmol/L ABX Reporting Has patient been on IV antibiotics over the past 48 hours?: No Current Medications - Current Medications Current Medications: Active Medications Acetaminophen (Acetaminophen 325 Mg Tablet) 650 mg PO Q4HR PRN PRN Reason: Pain 1 to 4 Last Admin: 11/08/20 12:17 Dose: 650 mg Documented by: Aspirin (Aspirin Chew 81 Mg Tablet) 81 mg PO DAILY [facility] Last Admin: 11/09/20 08:06 Dose: 81 mg Documented by: Atorvastatin Calcium (Atorvastatin 40 Mg Tablet) 40 mg PO QPM [facility] Last Admin: 11/08/20 20:52 Dose: 40 mg Documented by: Carvedilol (Carvedilol 12.5 Mg Tablet) 6.25 mg PO BID [facility] Last Admin: 11/09/20 08:03 Dose: 6.25 mg Documented by: Insulin Aspart (Insulin Aspart 300 Unit/3 Ml Pen) 1 - 9 unit SUBQ 0800,120 0,1700,2100 [facility]; Protocol Last Admin: 11/09/20 12:07 Dose: 3 unit Documented by: Insulin Glargine (Insulin Glargine 300 Unit/3 Ml Pen) 25 unit SUBQ QPM [facility] Last Admin: 11/08/20 20:52 Dose: 25 unit Documented by: Losartan Potassium (Losartan 50 Mg Tablet) 50 mg PO DAILY [facility] Last Admin: 11/09/20 08:06 Dose: 50 mg Documented by: Metoclopramide HCl (Metoclopramide 10 Mg Tablet) 5 mg PO [facility] Last Admin: 11/09/20 12:06 Dose: 5 mg Documented by: Multi-Ingredient Ointment (Zinc Oxide 20% Oint 30 Gm Tube) 1 applic TOP PRN PRN PRN Reason: Skin Care Last Admin: 11/07/20 05:02 Dose: 1 applic Documented by: Ondansetron HCl (Ondansetron Odt 4 Mg Tablet) 4 mg TL Q6HR PRN PRN Reason: Nausea / Vomiting Saccharomyces Boulardii (Saccharomyces Boulardii 250 Mg Capsule) 250 mg PO BIDWM [facility] Last Admin: 11/09/20 08:03 Dose: 250 mg Documented by: Sodium Chloride (Sodium Chloride Flush 0.9% 10 Ml Syringe) 10 ml IVP PRN PRN PRN Reason: NEEDED PER PROVIDER ORDERS Last Admin: 11/06/20 19:25 Dose: 10 ml Documented by: Sodium Chloride (Sodium Chloride Flush 0.9% 10 Ml Syringe) 10 ml IVP 0100,0900,1700 [facility] Last Admin: 11/09/20 08:06 Dose: 10 ml Documented by: Torsemide (Torsemide 20 Mg Tablet) 5 mg PO DAILY [facility] Torsemide (Torsemide 20 Mg Tablet) 2.5 mg PO ONCE [facility] Baclofen 10 mg PO BID 11/06/14 Carvedilol 6.25 mg PO BID 11/06/14 Insulin Aspart [Novolog] 0 - 25 units SQ TIDWM 11/06/14 Losartan [Cozaar] 25 mg PO DAILY 11/06/14 Aspirin [Children's Aspirin] 81 mg PO DAILY 02/26/18 Gabapentin 300 mg PO TID 02/26/18 Metoclopramide HCl 5 mg PO QID 02/26/18 Atorvastatin [Lipitor] 40 mg PO QPM 05/04/19 traMADol [Ultram] 50 mg PO TID 05/04/19 Insulin Glargine [Lantus Solostar] 60 units SQ BID 11/06/20 Torsemide 5 mg PO MOWEFR 11/06/20 Warfarin Sodium [Jantoven] 4 mg PO DAILY 11/06/20
[2020-11-09] MEDS: TORSEMIDE 20 MG TABLET PO SCH (14:52)
[2020-11-09] MEDS: INSULIN GLARGINE 300 UNIT/3 ML PEN SUBQ SCH (21:06)
[2020-11-09] MEDS: ATORVASTATIN 40 MG TABLET PO SCH (21:06)
[2020-11-10] MEDS: SODIUM CHLORIDE FLUSH 0.9% 10 ML SYRINGE IVP SCH ×2 (01:21→07:52)
[2020-11-10 05:41] LABS: BASOPHILS % (AUTO) 0.8 %; EOSINOPHILS # (AUTO) 0.3 10^3/uL (0.0-0.7); EOSINOPHILS % (AUTO) 5.8 %; HGB - HEMOGLOBIN 12.7 g/dL (14.0-18.0); LYMPHOCYTES # (AUTO) 1.5 10^3/uL (1.5-3.5); LYMPHOCYTES % (AUTO) 27.5 %; MEAN CORPUSCULAR HEMOGLOBIN 29.7 pg (27.0-31.0); MEAN CORPUSCULAR VOLUME 95.8 fL (80.0-94.0); MEAN PLATELET VOLUME 12.6 fL (7.4-11.4); MONOCYTES # (AUTO) 0.4 10^3/uL (0.0-1.0); NEUTROPHILS # (AUTO) 3.1 10^3/uL (1.5-6.6); NEUTROPHILS % (AUTO) 58.1 %; NRBC ABSOLUTE COUNT (AUTO) 0.02 x10^3/uL; NUCLEATED RED BLOOD CELLS AUTO 0.4 /100WBC; PLT - PLATELET COUNT 130 10^3/uL (130-450); RED BLOOD COUNT 4.28 10^6/uL (4.70-6.10); WHITE BLOOD COUNT 5.3 x10^3/uL (4.8-10.8)
[2020-11-10 05:44] LABS: CALCIUM 8.2 mg/dL (8.5-10.3); MAGNESIUM 2.4 mg/dL (1.7-2.8); PHOSPHORUS 3.2 mg/dL (2.5-4.6); POTASSIUM 4.1 mmol/L (3.5-5.0)
[2020-11-10 05:53] LABS: INR 2.4 (0.8-1.2); PT - PROTHROMBIN TIME 25.5 secs (9.9-12.6)
[2020-11-10 06:10] LABS: PLATELET ESTIMATE, MANUAL NORMAL (130-450,000) (NORMAL)
[2020-11-10] MEDS: METOCLOPRAMIDE 10 MG TABLET PO SCH ×2 (06:35→11:08)
[2020-11-10] MEDS: SACCHAROMYCES BOULARDII 250 MG CAPSULE PO SCH (07:52)
[2020-11-10] MEDS: INSULIN ASPART 300 UNIT/3 ML PEN SUBQ SCH ×2 (07:52→11:45)
[2020-11-10] MEDS: carvediloL 12.5 MG TABLET PO SCH (08:41)
[2020-11-10] MEDS: LOSARTAN 50 MG TABLET PO SCH (08:41)
[2020-11-10] MEDS: ASPIRIN CHEW 81 MG TABLET PO SCH (08:41)
[2020-11-10] MEDS: TORSEMIDE 20 MG TABLET PO SCH (08:41)
[2020-11-10 11:43] VITALS: BP 130/83
--- NOTE | 2020-11-10 11:55 | Discharge Plan ---
Discharge Plan Problem Reviewed?: Yes Disposition: Home, Self Care Condition: Stable Diet: Diabetic Activity Restrictions: Activity as Tolerated Shower Restrictions: No (fall precaution) Instruction Topics: Pacemaker Biventricular and ICD, Heart Failure, Heart Failure Coping, Heart Failure Diet Changes, Heart Failure Helpful Meds, Heart Failure Dc, Hypoglycemia, Hyperglycemia, Diabetes Type 2 Coping, Diabetes Carbs, Diabetes Inspect Feet Health Concerns: heart failure, diabetes management Plan of Treatment: Your ECHO show you have 20-25% EF, severe reduced heart function. As we discussed with you and your about the care plan, resume your home meds, followup closely with your wine steward/stewardess, have out-pt cardiac wellness program. You have high insulin dosage taken at home comparing in the hospital. Discussed with you and your by phone about the care plan, your A1C is 7.7, very precaution of hypoglycemia in home as well, your understood that, and you may followup with your PCP in one week to continue management of your diabetes. Care Goals: stabilization and improvement of your medical conditions. Assessment: discussed with you and your about the care plan, answered your questions, and you understood. Additional Instructions or Follow Up instructions: You may followup with your PCP in one week, followup with your wine steward/stewardess in next Saturday as your schedule. Should your symptoms return or worsen, you may present ER or call 911 for help. No Smoking: If you smoke, Please STOP! Call for help. Follow-up with: Sara Alvarez MD [Primary Care Provider] -
--- NOTE | 2020-11-10 12:16 | DISCHARGE SUMMARY ---
Discharge Summary Admit Date: 11/05/20 Discharge Date: 11/10/20 Discharging Provider: Jerardo Schmitt Primary Care Provider: Sara Sung Condition at Discharge: Stable Discharge Disposition: 01 Home, Self Care Discharge Facility Name: home - DIAGNOSES Discharge Diagnoses with Status of Each Condition: (1) Atrial fibrillation with rapid ventricular response HR is Normal range, Resume home medications, Resume Coumadin. Follow-up PCP in 1 week (1) Sepsis resolved. Patient has no fever, WBC is in normal range, patient has no cough, patient has no respiratory distress. Lactic acid become normal range (2) systolic heart failure ECHO show pt's EF is only 20-25%. Discussed the test result with the patient's and patient. After treating the hospital, patient feel much better, Patient is hemodynamic stable, no respiratory distress, resume pt's home meds Coreg, Cozaar, and Torsemide. 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 refer to cardiac wellness program. pt's already made an appointment for pt (3)shortness of breath resolved. Patient's shortness of breathing is resolved. (4)poor appetite resolved. (5) Leukopenia resolved (6) Syncope no syncope at hospital. ECHO show pt's EF is only 20-25%. PT/OT evaluation and treatment, Patient can be safely discharged to home. (7) Metabolic encephalopathy Resolved (8) Elevated LFTs resolved (9) Acute kidney injury superimposed on CKD resolved (10) Cardiomyopathy, ischemic New ECHO show 20-25% EF, He has an AICD in place. resume pt's home meds Coreg, Cozaar, and Torsemide. 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 Patient denies any chest pain. Patient is hemodynamic stable in the discharge. pt feel much better and comfortable. (12) Insulin dependent type 2 diabetes mellitus His A1c returned at 7.7. Patient take much more insulin in the home. I discussed the concern with pt's about significant amount of insulin taken at home. pt's hope keep pt's insulin as his home dosage, advise pt and his for Precaution of patient's hypoglycemia, follow-up his PCP in 1 week to continue management of patient's diabetic (13) History of CVA with residual deficit stable, Resume home medication with aspirin and Coumadin, and Lipitor (14) Lactic acidosis Resolved - [facility] History of Present Illness: refer from Dr. Hill's HPI on 11/05/20 This is a 65-year-old male with a past medical history significant for ischemic cardiomyopathy, CKD stage III, insulin-dependent type 2 diabetes mellitus, history of stroke with visual left-sided deficits and dysarthria who presents today due to worsening confusion and weakness over the past 2 days. He tells me that he came to the emergency department today because he has been confused over the past 2 days. He currently tells that he has no complaints whatsoever. He denies any chest pain, dyspnea, fevers, chills. Reports no cough, dysuria, urgency, hematuria. He has no abdominal pain reports no nausea or vomiting. He reports his speech is at baseline after his stroke. He does not believe that he is confused anymore and feels much improved compared to yesterday. He denies any recent sick contacts. He reports being compliant with his medications. I did speak with his significant other, Lindsey, who tells me the patient has been increasingly confused since yesterday afternoon. She thought he was likely dehydrated. He also appeared to be weaker overall. She stated his speech was a little bit more slurred than usual but at his baseline, he does have slurred speech and has difficulty gathering his words. She states is not uncommon for him to have slightly worsening of his slurred speech speech with he is quite fatigued. She states the patient had not been complaining of anything the past few days and he told this afternoon that he did not think his heart was giving him any problems. In the emergency department, he was found to be febrile with a temperature of 38.1 C. His heart rate was in the 100s. Blood pressure was 130/51. He was tachypneic with respiratory rate in the high 20s. He was saturatin 99% on 1 L of oxygen via nasal cannula. Labs were significant for a white count of 3.0. His INR was 1.9. VBG revealed a pH 7.176, PCO2 59.3, PO2 21.7, and a bic arbonate of 21.4. His BUN was elevated at 41 and his creatinine at 2.2. His lactic acid was 5.0. AST and ALT were mildly elevated at 99 and 67 respectively. Was 145.5 and his BNP was 1138. Alcohol was less than 5. Chest x-ray was suboptimal but did not reveal any obvious infiltrate. CT of the abdomen and pelvis revealed cholelithiasis and nonobstructing bilateral renal stones. He received nearly 3 L of IV fluids in the emergency department as well as vancomycin, aztreonam, Flagyl IV. Given the above findings, medicine was consulted for admission. We did discuss goals of care and he would like to be a full code. - HOSPITAL COURSE Hospital Course: Patient was admitted septic symptoms with low degree fever, high lactic acid, tachycardia and tachypnea and SARA. pt has No clearly etiology for patient's septic symptoms. Patient was treated with antibiotics and intravenous IV fluids. Patient was removed from the ICU to the medical floor. Patient was develop atrial fibrillation with RVR in the medical floor as well. Patient was treated with intravenous metoprolol, the his a fibrillation with RVR was resolved. Patient's home medication was resumed. Patient take aspirin plus Coumadin in the home. pt feel much better. Patient has no cardiopulmonary distress. Patient was discharged as hemodynamic condition. - ALLERGIES Allergies/Adverse Reactions: Allergies Allergy/AdvReac Type Severity Reaction Status Date / Time codeine Allergy Unknown Verified 11/05/20 18:25 lisinopril Allergy Unknown Verified 11/05/20 18:25 niacin Allergy Rash Verified 11/05/20 18:25 Penicillins Allergy Respiratory Verified 11/05/20 18:25 - MEDICATIONS Home Medications: Ambulatory Orders Medication Instructions Recorded Confirmed Baclofen 10 mg PO BID 11/06/14 11/06/20 Carvedilol 6.25 mg PO BID 11/06/14 11/08/20 Insulin Aspart [Novolog] 0 - 25 units SQ TIDWM 11/06/14 11/06/20 Losartan [Cozaar] 25 mg PO DAILY 11/06/14 11/08/20 Aspirin [Children's Aspirin] 81 mg PO DAILY 02/26/18 11/06/20 Gabapentin 300 mg PO TID 02/26/18 11/06/20 Metoclopramide HCl 5 mg PO QID 02/26/18 11/06/20 Atorvastatin [Lipitor] 40 mg PO QPM 05/04/19 11/06/20 traMADol [Ultram] 50 mg PO TID 05/04/19 11/06/20 Insulin Glargine [Lantus Solostar] 60 units SQ BID 11/06/20 11/06/20 Torsemide 5 mg PO MOWEFR 11/06/20 11/06/20 Warfarin Sodium [Jantoven] 4 mg PO DAILY 11/06/20 11/06/20 - PHYSICAL EXAM AT DISCHARGE General Appearance: positive: No acute distress, Alert. negative: Lethargic Eyes Bilateral: positive: Normal inspection, PERRL, No lid inflammation ENT: positive: ENT inspection nml, No signs of dehydration. negative: Purulent nasal drainage Neck: positive: Nml inspection, Trachea midline. negative: Thyromegaly, Tracheal deviation Respiratory: positive: Chest non-tender, No respiratory distress. negative: Wheezes, Rales Cardiovascular: positive: Regular rate & rhythm. negative: Tachycardia, Bradycardia, Systolic murmur, Diastolic murmur Peripheral Pulses: positive: 2+ Abdomen: positive: Non-tender, Nml bowel sounds, No distention, Tenderness Back: positive: Nml inspection Skin: positive: Color nml, Warm, Dry. negative: Cyanosis, Diaphoresis, Pallor Extremities: positive: Non-tender, Full ROM, Nml appearance. negative: Calf tenderness Neurologic/Psychiatric: positive: Oriented x3, Motor nml, Sensation nml, Mood/affect nml. negative: Weakness, Sensory loss, Facial droop, Slurred/abnml speech, Depressed mood/affect - LABS Result Diagrams: 11/10/20 04:30 11/10/20 04:30 - SEPSIS Current Stage of Sepsis: Severe sepsis Possible source of Sepsis: Unknown Sepsis Criteria: Recorded Temperature greater than 38.3C or Less than 36C, Recorded Heart Rate greater than 90 bpm, Recorded Respiratory Rate greater than 20, WBC count greater than 12,000 or less than 4000, [employer]: altered consciousness (unrelated to primary neuro pathology), Renal: urine output less than 0.5ml/kg/hr for 2 hours or creatinine gr, Metabolic: lactate > 2 mmol/L - FOLLOW UP Follow Up: Your ECHO show you have 20-25% EF, severe reduced heart function. As we discuss ed with you and your about the care plan, resume your home meds, followup closely with your nonprofit financial controller, have out-pt cardiac wellness program. You have high insulin dosage taken at home comparing in the hospital. Discussed with you and your by phone about the care plan, your A1C is 7.7, very precaution of hypoglycemia in home as well, your understood that, and you may followup with your PCP in one week to continue management of your diabetes. You may followup with your PCP in one week, followup with your nonprofit financial controller in next Saturday as your schedule. Should your symptoms return or worsen, you may present ER or call 911 for help. - TIME SPENT Time Spent in Discharge (Minutes): 30
[2020-11-10] MEDS ORDERED: WARFARIN 1 MG TABLET PO SCH (14:00)
== END 2020-11-10 14:10 | disposition home or self-care (01) | DRG 871 ==
LOC: EDUNIT# → EDSEX → ED 18:12 → ICU 20:20 → MS3 11-08 07:00
PROVIDERS: ADMIT Internal Medicine; ATTEND Internal Medicine
DX: A41.9 Sepsis, unspecified organism (principal); G93.41 Metabolic encephalopathy; N17.9 Acute kidney failure, unspecified; I50.20 Unspecified systolic (congestive) heart failure; I13.0 Hypertensive heart and chronic kidney disease with heart failure and stage 1 through stage 4 chronic kidney disease, or unspecified chronic kidney disease; I24.8 Other forms of acute ischemic heart disease; E87.2 Acidosis; I69.954 Hemiplegia and hemiparesis following unspecified cerebrovascular disease affecting left non-dominant side; R65.20 Severe sepsis without septic shock; I25.5 Ischemic cardiomyopathy; I48.91 Unspecified atrial fibrillation; E78.5 Hyperlipidemia, unspecified; E11.22 Type 2 diabetes mellitus with diabetic chronic kidney disease; N18.30 Chronic kidney disease, stage 3 unspecified; E11.65 Type 2 diabetes mellitus with hyperglycemia; I69.912 Visuospatial deficit and spatial neglect following unspecified cerebrovascular disease; I69.922 Dysarthria following unspecified cerebrovascular disease; I25.10 Atherosclerotic heart disease of native coronary artery without angina pectoris; E86.0 Dehydration; R55 Syncope and collapse; D72.819 Decreased white blood cell count, unspecified; R79.89 Other specified abnormal findings of blood chemistry; R63.0 Anorexia; Z68.33 Body mass index [BMI] 33.0-33.9, adult; K21.9 Gastro-esophageal reflux disease without esophagitis; H54.7 Unspecified visual loss; H91.90 Unspecified hearing loss, unspecified ear; Z20.822 Contact with and (suspected) exposure to COVID-19; I25.2 Old myocardial infarction; Z95.810 Presence of automatic (implantable) cardiac defibrillator; Z79.01 Long term (current) use of anticoagulants; Z79.4 Long term (current) use of insulin; Z79.82 Long term (current) use of aspirin; Z79.899 Other long term (current) drug therapy; Z87.891 Personal history of nicotine dependence; Z95.1 Presence of aortocoronary bypass graft; Z82.49 Family history of ischemic heart disease and other diseases of the circulatory system
CPT/HCPCS: 0202U; 36415; 36600; 70450; 71045; 74176; 80048; 80053; 80076; 80320; 81001; 82607; 82803; 83036; 83605; 83690; 83735; 83880; 84100; 84443; 84484; 85025; 85610; 86140; 87040; 87150; 93005; 93306; 96365; 96368; 97116; 97161; 97166; 97535; 99285; 99291; A9270; J1815; J3370; J7120; Q9957; 80202; 81003; 87086

== ENCOUNTER 2020-11-15 16:07 | Outpatient (CLI) | payer OTHER | END 2020-11-15 16:08 | disposition E | LOC: EMS 16:07 | DX: I46.9 Cardiac arrest, cause unspecified (principal) | CPT/HCPCS: A0425; A0429 ==